=== PATIENT | male | born 1985 | race Caucasian/White ===

== ENCOUNTER 2017-06-04 14:45 | Emergency (ER) | payer OTHER ==
[~2017-06-04] VITALS: Ht 180.3 cm; Wt 108.9 kg
[~2017-06-04 14:45] MED LIST: NEURONTIN400 MG PO; PENTOXIFYLLINE400 MG PO
[2017-06-04] MEDS ORDERED: OMEPRAZOLE40 MG PO (14:56)
[2017-06-04] MEDS ORDERED: FLUOXETINE HCL20 MG PO (14:57)
== END 2017-06-04 14:59 | disposition home or self-care (01) ==
LOC: ED 14:45
DX: Z00.8 Encounter for other general examination (principal)

== ENCOUNTER 2017-07-07 20:39 | Emergency (ER) | payer OTHER ==
[~2017-07-07] VITALS: Ht 180.3 cm; Wt 108.9 kg
[~2017-07-07 20:39] MED LIST changes: +FLUOXETINE HCL20 MG PO; +OMEPRAZOLE40 MG PO
[2017-07-07] MEDS ORDERED: GABAPENTIN600 MG PO (21:15)
[2017-07-07] MEDS ORDERED: MOBIC7.5 MG PO ×2 (21:16)
[2017-07-07] MEDS ORDERED: CYCLOBENZAPRINE10 MG PO (21:54)
[2017-07-07] MEDS ORDERED: NAPROSYN500 MG PO (21:54)
== END 2017-07-07 22:04 | disposition home or self-care (01) ==
LOC: ED 20:39
DX: S23.3XXA Sprain of ligaments of thoracic spine, initial encounter (principal); F17.200 Nicotine dependence, unspecified, uncomplicated; Z88.2 Allergy status to sulfonamides; Z88.1 Allergy status to other antibiotic agents; Z88.8 Allergy status to other drugs, medicaments and biological substances; Z79.899 Other long term (current) drug therapy; X58.XXXA Exposure to other specified factors, initial encounter
CPT/HCPCS: 96372; 99283; J1885

== ENCOUNTER 2018-09-03 06:50 | Day surgery (SDC) | payer OTHER ==
[~2018-09-03] VITALS: Ht 180.3 cm; Wt 99.8 kg
[~2018-09-03 06:50] MED LIST changes: +ADDERALL 20 MG20 MG PO; +CYCLOBENZAPRINE10 MG PO; +GABAPENTIN600 MG PO; +MOBIC7.5 MG PO; +NAPROSYN500 MG PO; +PEPCID40 MG PO
--- NOTE | 2018-09-03 09:56 | NUR ---
09/03/18 0955 Evelyn Meeks 3749 PT ARRIVED TO PACU ON RA, PT DROWSY AND TALKING TO RN. PT REPORTS PAIN 5/10 AND TOLERABLE. 4 LAP SITES NOTED, ONE WITH SHADOWING. RESP EVEN AND UNLABORED.
--- NOTE | 2018-09-03 11:14 | NUR ---
LE 1100 PT ARRIVED FROM PACU, DROWSY. PAIN MEDICATION GIVEN BY INSPECTOR ELEVATORS FOR 710 PAIN. CRACKERS AND JELLO GIVEN. PT C/O NAUSEA WITH ATTEMPTING FOOD. ZOFRAN GIVEN. ASSISTED WITH HELPING PT CHANGE POSITION. LIGHTS OUT, PT RESTING. CALL LIGHT IN REACH.
--- NOTE | 2018-09-03 11:28 | NUR ---
PT FHERE FOR KAMILA SCHUMACHER. HE IS ALERT, ORIENTED AND SUPPORTED BY HIS G FRIEND DELPHINE. HE WAS SOMEWHAT ANXIOUS, BUT SEEMED PREPARED. PT DECLINED PRAYER, WILL FOLLOW NEEDED
--- NOTE | 2018-09-04 17:41 | OR ---
[facility] [address] [place], [place] [address] Signed DATE OF OPERATION: 09/03/2018 SURGEON: Mikey Bonner MD PREOPERATIVE DIAGNOSES: 1. Chronic cholecystitis. 2. Irregular gallbladder. POSTOPERATIVE DIAGNOSES: 1. Chronic cholecystitis. 2. Irregular gallbladder. PROCEDURE PERFORMED: Laparoscopic cholecystectomy with intraoperative cholangiogram. ESTIMATED BLOOD LOSS: 50 mL. FINDINGS: Pires gallbladder was chronically inflamed, extremely thin like wet tissue paper, very friable with omentum adhered to about half the gallbladder. I think it was irregular appearing on his ultrasound because it had no tension to the wall and it was very flaccid in the gallbladder fossa. The intraoperative cholangiogram did not show any obvious filling defects. The contrast hesitated as it went through the sphincter of oddi. With gentle pressure, it went through. INDICATIONS: Teo is a 33-year-old gentleman who has had trouble in the last couple years with right upper quadrant abdominal pain. He says it is belt like across his upper abdomen. It is worse after meals. He said within 15 to 20 minutes, he is miserable. He said it is now happening almost every day. It is worse with fatty foods. He went to a [employer] restaurant a few days before he saw me. He said that was really bad. He had been to his primary care provider. The ultrasound showed some irregularity of the gallbladder. The bile ducts were fine. No obvious gallstones. With his ongoing symptoms, he was asked to see me with respect to the above. I met with Teo and his girlfriend in the office. He clearly has gallbladder symptoms. I gave him a [employer] brochure on the gallbladder and we looked at that together along with the difference between laparoscopic and an open cholecystectomy. They understand there is risk to the procedure including, but not limited to bleeding, infection, scarring, change in contour of the skin, damage to bowel, damage to main bile duct, and incisional hernias. He had Electronically Signed By: MIKEY BONNER MD 09/04/18 1741 PATIENT NAME: TEO SALEEM JR OPERATIVE REPORT DATE OF : 83 REPORT #: [id number] PHYSICIAN: MIKEY BONNER MD PCP: CITLALI BISHOP MD REPORT IS CONFIDENTIAL AND NOT TO BE RELEASED WITHOUT AUTHORIZATION [facility] [address] [place] [id number] Signed expressed understanding and wished to proceed. PROCEDURE NOTE: I met with Teo and his family in the preop area. After this, he was taken into the operating room and placed in the supine position under general endotracheal tube anesthesia. He was given preoperative antibiotics along with subcutaneous heparin. SCDs were utilized. He was then prepped and draped in the usual sterile fashion. All trocars were placed in usual positions under direct visualization of camera without difficulty. We immediately noticed that his gallbladder was quite flaccid, which is unusual when someone has been n.p.o. overnight. We elevated the gallbladder and we found that the omentum was adherent to at least 1/2 the length of the gallbladder. We started our dissection bluntly and with judicious cautery, and we found that his gallbladder was quite friable and it came open quite easily. We spent a minute in dealing with a bleeder in the omentum and he has several sequential clips in that area. After this, we very carefully gave our countertraction and very slowly and bluntly brought the omentum down and off the gallbladder. The triangle of Calot was dissected bluntly with [place] dissectors. We then placed our intraoperative cholangiocatheter into the cystic duct. Intraoperative cholangiogram was then performed. We found it to be unremarkable. The cystic duct stump was secured with a PDS Endoloop. Two clips were placed across the cystic duct stump to arvind its location. After this, the gallbladder was very slowly and carefully with, gentle traction, removed from the gallbladder fossa with the help of the cautery. After this, the right upper quadrant was copiously irrigated and suctioned out until clear. We then used our laparoscopic suturing device to pass 0 Vicryl suture on either side of the fascia of the subxiphoid trocar site. This was tied down to close this fascia primarily. After this, all the gas was allowed to escape and all the trocars were removed along with the gallbladder. The gallbladder was opened on the back table by our circulating nurse. Again, they found this to be quite thin and very friable as well. No obvious gallstones noted. After this, I closed the fascia of the supraumbilical trocar site with [id number] and simple 0 Vicryl sutures. Local anesthetic was copiously injected into all trocar sites. Each trocar site was irrigated and suctioned out until clear. The skin and dermis of each trocar site were closed with interrupted 3-0 subcuticular Monocryl sutures. Dry gauze and tape were then applied to all incisions. After this, Teo was awakened from his anesthesia, extubated in the OR, and taken to recovery in stable condition. Mikey Bonner MD ALB/MODL Electronically Signed By: MIKEY BONNER MD 09/04/18 1741 PATIENT NAME: TEO SALEEM JR OPERATIVE REPORT DATE OF : 83 REPORT #: [id number] PHYSICIAN: MIKEY BONNER MD PCP: CITLALI BISHOP MD REPORT IS CONFIDENTIAL AND NOT TO BE RELEASED WITHOUT AUTHORIZATION [address] [place], [place] [address] Signed /[id number] cc: MD Mikey Chen MD Copies: CITLALI BISHOP MD, ANDREW L MD ~ Electronically Signed By: MIKEY BONNER MD 09/04/18 1741 PATIENT NAME: TEO SALEEM JR OPERATIVE REPORT DATE OF : 83 REPORT #: [id number] PHYSICIAN: MIKEY BONNER MD PCP: CITLALI BISHOP MD REPORT IS CONFIDENTIAL AND NOT TO BE RELEASED WITHOUT AUTHORIZATION
[2018-09-04] MEDS ORDERED: VICODIN HP 10-1 EAC1 PO (22:11)
== END 2018-09-03 13:00 | disposition home or self-care (01) ==
LOC: DS 06:50
PROVIDERS: Colon & Rectal Surgery
PROC: BF03YZZ Plain Radiography of Gallbladder and Bile Ducts using Other Contrast (ICD-10-PCS; 2018-09-03)
PROC: 0FT44ZZ Resection of Gallbladder, Percutaneous Endoscopic Approach (ICD-10-PCS; principal; 2018-09-03 08:15)
DX: K81.1 Chronic cholecystitis (principal); F90.9 Attention-deficit hyperactivity disorder, unspecified type; G62.9 Polyneuropathy, unspecified; G47.33 Obstructive sleep apnea (adult) (pediatric); F17.210 Nicotine dependence, cigarettes, uncomplicated; F17.220 Nicotine dependence, chewing tobacco, uncomplicated; Z88.1 Allergy status to other antibiotic agents; Z88.8 Allergy status to other drugs, medicaments and biological substances; Z79.899 Other long term (current) drug therapy
CPT/HCPCS: 00790; 74300; J0690; J1100; J1170; J1644; J1885; J2250; J2405; J2704; J3010; J7120; Q9967

== ENCOUNTER 2018-09-04 21:59 | Emergency (ER) | payer OTHER ==
[~2018-09-04] VITALS: Ht 180.3 cm; Wt 99.8 kg
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
--- OUTSIDE RECORDS SUMMARY | ~2018-09-04 | XMS | Clinical Summary ---
Demographics + + + | Address | [address] | | | [place] [address] | + + + | Home Phone | | + + + | Preferred Language | Unknown | + + + | Marital Status | Single | + + + | Temple Affiliation | 1013 | + + + | Race | Unknown | + + + | Ethnic Group | Unknown | + + + Author + + + | Author | [facility] | | | and [place] | + + + | Organization | [facility] | | | and [...] [place], [place] | | | | | [address] | | + + + + + Care Team Providers + +------+ + | Care Material Reclaimer Name | Role | Phone | + [...] | | + +--------+ +--------+ +---------+ | [employer] | SAIF | [id number] | Indjeffn | [phone] | | | | WC | | ity | [phone] | | + +--------+ +--------+ +---------+ | STATE [employer] | STATE | [id number] | Indemn | [phone] | | | | FARM | 7 [...] | + +--------+ +--------+ + + | [id number] | Worker | Self | [birth year] | Home: | [address] | | | s Comp | | 1984 | [phone]- | [place] [address] | | | | | | [phone] | | + +--------+ +--------+ + + | TEO SALEEM | Third | Self | [birth year] | Home: | [address] | | | Republican | | 1984 | [phone] | [place] [address] | | | Liabil | | | [phone] | | | | ity | | | | | + +--------+ +--------+ + + | TEO SALEEM | Person | Self | [birth year] | Home: | [address] | | | al/Fam | | 1984 | [phone] | [place] [address] | | | courtney | | | [phone] | | + +--------+ +--------+ + +
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
[2018-09-04] MEDS ORDERED: VICODIN HP 10-1 EAC1 PO (22:11)
== END 2018-09-05 00:58 | disposition home or self-care (01) ==
LOC: ED 21:59
PROC: 0CQ1XZZ Repair Lower Lip, External Approach (ICD-10-PCS; principal; 2018-09-04)
DX: S01.511A Laceration without foreign body of lip, initial encounter (principal); W01.198A Fall on same level from slipping, tripping and stumbling with subsequent striking against other object, initial encounter; F17.200 Nicotine dependence, unspecified, uncomplicated; Z88.8 Allergy status to other drugs, medicaments and biological substances; Z88.1 Allergy status to other antibiotic agents; Z88.2 Allergy status to sulfonamides; Z79.899 Other long term (current) drug therapy
CPT/HCPCS: 40650; 70450; 80053; 85025; 99284

== ENCOUNTER 2019-06-21 08:10 | Day surgery (SDC) | payer OTHER ==
[~2019-06-21] VITALS: Ht 177.8 cm; Wt 97.5 kg
[~2019-06-21 08:10] MED LIST changes: +ALEVE220 M1 PO; +VICODIN HP 10-1 EAC1 PO
--- NOTE | 2019-06-21 09:53 | NUR ---
06/21/19 0953 Lavern Woods 0989 PATIENT ARRIVES TO PACU UNRESPONSIVE TO PAIN, ORAL AIRWAY IN PLACE. RESP EVEN AND UNLABORED, MASK AT 6 LITERS.
--- NOTE | 2019-06-21 10:32 | NUR ---
PATIENT BACK IN DAY SURGERY ROOM. PATIENT FREQUENTLY DROWSY. UNABLE TO STAY AWAKE. BUT DOES AWAKEN TO VOICE. VS CHECKED. C/O PAIN 7/10 IN THROAT. IV SITE WNL. SCDs ON. ICE WATER PLACED AT BEDSIDE. GIRLFRIEND AT BESIDE. CALL LIGHT WITHIN REACH.
--- NOTE | 2019-06-21 12:32 | NUR ---
1225: PATIENT MORE ALERT AND AWAKE. STATES READY TO GO HOME. DISCHARGE INSTRUCTIONS GIVEN TO PATIENT AND GIRLFRIEND. PATIENT DRESSED WITH HELP FROM GIRLFRIEND. PATIENT DISCHARGED TO HOME WITH GIRLFRIEND VIA WHEELCHAIR.
--- NOTE | 2019-06-21 16:27 | OR ---
[facility] [place] [facility] [address] [facility] [place], [place] [address] Signed DATE OF OPERATION: 06/21/2019 SURGEON: Keegan Cameron MD PREOPERATIVE DIAGNOSIS: Left pharyngeal lesion. POSTOPERATIVE DIAGNOSIS: Left pharyngeal lesion. PROCEDURE: Direct laryngoscopy, excision of left pharyngeal lesion. ANESTHESIA: General orotracheal; BUSINESS SERVICES ASSISTANT, Jun. PREOPERATIVE HISTORY: Mr. Saleem is a 34-year-old man, who had a left pharyngeal lesion discovered on upper GI endoscopy by Dr. Easley recently. 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 He was taken to the operating room for the above-mentioned procedures. OPERATIVE PROCEDURE AND FINDINGS: After informed consent, the patient was taken to the operating room, placed in supine position where general orotracheal anesthesia was induced. The patient and procedure were verified. The patient was repositioned. The anterior commissure laryngoscope was used to visualize the hypopharynx, larynx. Everything was normal except for the left lateral pharyngeal wall near the posterior wall just inferior to the tonsil fossa. There was about a 1 cm papilloma attached on a stalk. This was excised completely and sent to pathology in formalin. Minimal bleeding stopped afterwards. No other abnormalities. The scope was removed. The patient was awakened, extubated, transported to recovery room in good condition. No complications. BLOOD LOSS: Minimal. SPECIMEN: To Pathology. DRAINS: Electronically Signed By: KEEGAN CAMERON MD 06/21/19 1627 PATIENT NAME: GIAN SALEEM JR OPERATIVE REPORT DATE OF : 83 REPORT #: [id number] PHYSICIAN: KEEGAN CAMERON MD PCP: CITLALI BISHOP MD REPORT IS CONFIDENTIAL AND NOT TO BE RELEASED WITHOUT AUTHORIZATION [address], [place] [address] Signed No drains. Keegan Cameron MD GC/PARMINDERL /[id number] Copies: ~ Electronically Signed By: KEEGAN CAMERON MD 06/21/19 1627 PATIENT NAME: GIAN SALEEM JR OPERATIVE REPORT DATE OF : 83 REPORT #: [id number] PHYSICIAN: KEEGAN CAMERON MD PCP: CITLALI BISHOP MD REPORT IS CONFIDENTIAL AND NOT TO BE RELEASED WITHOUT AUTHORIZATION
== END 2019-06-21 12:25 | disposition home or self-care (01) ==
LOC: DS 08:10 → OPS 08:10
PROVIDERS: Otolaryngology
PROC: 0CBM8ZZ Excision of Pharynx, Via Natural or Artificial Opening Endoscopic (ICD-10-PCS; principal; 2019-06-21 09:30)
DX: D10.9 Benign neoplasm of pharynx, unspecified (principal); F90.9 Attention-deficit hyperactivity disorder, unspecified type; K44.9 Diaphragmatic hernia without obstruction or gangrene; K21.9 Gastro-esophageal reflux disease without esophagitis; F17.210 Nicotine dependence, cigarettes, uncomplicated; F12.90 Cannabis use, unspecified, uncomplicated; Z88.1 Allergy status to other antibiotic agents; Z88.8 Allergy status to other drugs, medicaments and biological substances; Z79.899 Other long term (current) drug therapy
CPT/HCPCS: 00170; J0330; J0461; J1100; J1885; J2250; J2405; J2704; J2765; J3010; J7120

== ENCOUNTER 2019-06-24 08:19 | Emergency (ER) | payer OTHER ==
[~2019-06-24] VITALS: Ht 177.8 cm; Wt 97.5 kg
--- OUTSIDE RECORDS SUMMARY | 2019-06-24 08:22 | XMS ---
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 Dorcas has no Care Guidelines for this patient. Mac VISIT COUNT (12 MO.) 2 ОЛЕГ [place] TOTAL 2 NOTE: Visits indicate total known visits. ED/UCC VISIT TRACKING (12 MO.) 06/24/2019 08:19 [place] TYPE: Emergency COMPLAINT: - VOMITING BLOOD POST OP 09/04/2018 22:00 [facility]Г [facility] TYPE: Emergency COMPLAINT: - FALL- LIP LACERATION DIAGNOSES: - Nicotine dependence, unspecified, uncomplicated - Fall on same level from slipping, tripping and stumbling with subsequent striking against other object, initial encounter - Laceration without foreign body of lip, initial encounter - Allergy status to other drugs, medicaments and biological substances status - Syncope and collapse - Allergy status to sulfonamides status - Other chcf (current) drug therapy - Allergy status to other antibiotic agents status INPATIENT VISIT TRACKING (12 MO.) No inpatient visits to display in this time frame [email or web address]
[2019-06-24] MEDS ORDERED: NORCO 7.5-3251 EACH PO (10:56)
== END 2019-06-24 11:28 | disposition home or self-care (01) ==
LOC: ED 08:19
DX: J95.830 Postprocedural hemorrhage of a respiratory system organ or structure following a respiratory system procedure (principal); F17.200 Nicotine dependence, unspecified, uncomplicated; Z88.2 Allergy status to sulfonamides; Z88.8 Allergy status to other drugs, medicaments and biological substances; Z88.1 Allergy status to other antibiotic agents; Z79.899 Other long term (current) drug therapy
CPT/HCPCS: 85025; 96361; 96374; 96375; 99283-25; 99406; J2405; J3010; J7040

== ENCOUNTER 2020-07-24 15:29 | Emergency (ER) | payer OTHER ==
[~2020-07-24] VITALS: Ht 177.8 cm; Wt 97.5 kg
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
--- OUTSIDE RECORDS SUMMARY | ~2020-07-24 | XMS | Encounter Summary ---
Demographics + + + | Address | [address] | | | [place] [address] | + + + | Home Phone | | + + + | Preferred Language | Unknown | + + + | Marital Status | Single | + + + | Mosque Affiliation | Unknown | + + + | Race | White | + + + | Ethnic Group | Not or | + + + Author + + + | Author | [facility] | + + + | Organization | [facility] | + + + | Address | Unknown | + + + | Phone | Unavailable | + + + Support + + +---------+ + | Name | Relationship | Address | Phone | + + +---------+ + | Ole Vargas Sr. | ECON | Unknown | | + + +---------+ + Care Team Providers + +------+ + | Care Mobility Architect Manager Name | Role | Phone | + +------+ + | No Pcp Per Patient | PCP | Unavailable | + +------+ + Reason for Referral Diagnostic Testing (Routine) +--------+--------+ + + + + | Status | Reason | Specialty | Diagnoses / | Referred By | Referred To | | | | | Procedures | Contact | Contact | +--------+--------+ + + + + | Closed | | Radiology | Diagnoses | Dwain, | Rad Ct Scan | | | | | | MD Reji | [address] | | | | | Diaphragmati | [address] | | | | | c hernia | [facility] | [place] for | | | | | without | Rd | Health and | | | | | obstruction | [place], [place] | Healing, | | | | | and without | [address] | Building 1, | | | | | gangrene | Phone: | 3rd Floor | | | | | Procedures | [phone] | [place], [place] | | | | | CT CHEST, | Fax: | [address] | | | | | ABDOMEN AND | [phone] | Phone: | | | | | PELVIS W IV | | [phone] | | | | | CONTRAST NM | | Fax: | | | | | CAT SCAN OF | | [phone] | | | | | CHEST | | | | | | | CONTRAST NM | | | | | | | CT | | | | | | | ABDOMEN&PELV | | | | | | | IS | | | | | | | W/CONTRAST | | | +--------+--------+ + + + + Reason for Visit Diagnostic Testing (Routine) +--------+--------+ + + + + | Status | Reason | Specialty | Diagnoses / | Referred By | Referred To | | | | | Procedures | Contact | Contact | +--------+--------+ + + + + | Closed | | Radiology | Diagnoses | Dwain, | Rad Ct Scan | | | | | | MD Reji | [address] | | | | | Diaphragmati | [address] | | | | | c hernia | [facility] | [place] [facility] | | | | | without | Rd | Health and | | | | | obstruction | [place], [place] | Healing, | | | | | and without | [address] | [address] 1, | | | | | gangrene | Phone: | 3rd Floor | | | | | Procedures | [phone] | [place], [place] | | | | | CT CHEST, | Fax: | [address] | | | | | ABDOMEN AND | [phone] | Phone: | | | | | PELVIS W IV | | [phone] | | | | | CONTRAST NM | | Fax: | | | | | CAT SCAN OF | | [phone] | | | | | CHEST | | | | | | | CONTRAST NM | | | | | | | CT | | | | | | | ABDOMEN&PELV | | | | | | | IS | | | | | | | W/CONTRAST | | | +--------+--------+ + + + + Encounter Details +--------+ + + + + | Date | Type | Department | Care Team | Description | +--------+ + + + + | 07/22/ | Hospital | Radiology/Imaging | Reji Prakash MD | | | 2019 | Encounter | Lab at [facility] [address] | [address] | | | | | [facility] | [facility] [place], | | | | | Health and Healing, | [place] [address] | | | | | Building 1, [facility] | [phone] | | | | | Floor [place], [place] | | | | | | [address] | | | | | | [phone] | | | +--------+ + + + + Social History + + + +--------+------+ | Tobacco Use | Types | Packs/Day | Years | Date | | | | | Used | | + + + +--------+------+ | Current Every Day | Cigarettes | 1 | | | | Smoker | | | | | + + + +--------+------+ + +------+---+---+ | Smokeless Tobacco: | Chew | | | | Current User | | | | + +------+---+---+ + + +---------+ + | Alcohol Use | Drinks/Week | oz/Week | Comments | + + +---------+ + | No | | | | + + +---------+ + + + + | Sex Assigned at | Date Recorded | | | | + + + | Not on file | | + + + documented as of this encounter Medications at Time of Discharge + + + +---------+ + + | Medication | Sig | Dispensed | Refills | Start | End Date | | | | | | Date | | + + + +---------+ + + | | take 1 tablet by | | 0 | 07/20/20 | | | dextroamphetamine-am | mouth twice a day | | | 19 | | | phetamine 5 mg oral | | | | | | | tablet | | | | | | + + + +---------+ + + | gabapentin 100 mg | take 1 capsule by | | 0 | 06/29/20 | | | oral capsule | mouth at bedtime and | | | 19 | | | | INCREASE BY 1 | | | | | | | capsule ever... | | | | | | | (REFER TO | | | | | | | PRESCRIPTION NOTES). | | | | | + + + +---------+ + + documented as of this encounter Plan of Treatment Not on filedocumented as of this encounter Procedures + +--------+ + + + | Procedure Name | Priori | Date/Time | Associated Diagnosis | Comments | | | ty | | | | + +--------+ + + + | CT CHEST, ABDOMEN | Routin | 07/22/2019 | Diaphragmatic | Results for this | | AND PELVIS W IV | e | 1:47 PM | hernia without | procedure are in the | | CONTRAST | | PDT | obstruction and | results section. | | | | | without gangrene | | + +--------+ + + + documented in this encounter Results CT CHEST, ABDOMEN AND PELVIS W IV CONTRAST (07/22/2019 1:47 PM PDT) + + | Specimen | + + | | + + + + + | Narrative | Performed At | + + + | EXAM: CT of the chest, abdomen and pelvis WITH intravenous contrast. | [facility] | | HISTORY: small hiatal hernia, posterior oropharynx polypoid | RADIOLOGY VOICE | | lesion, GERD seen on recent EGD COMPARISON: None available. | RECOGNITION 2 | | TECHNIQUE: CT of the chest, abdomen and pelvis WITH intravenous | | | contrast. Coronal and sagittal reformats were generated and reviewed. | | | FINDINGS: CHEST: The heart and great vessels are unremarkable. | | | No thoracic adenopathy. The lungs are clear. No pleural fluid. | | | LIVER: Unremarkable. BILIARY: Surgically absent with cholecystectomy | | | in place without any evidence of intrahepatic or extrahepatic biliary | | | ductal dilation. PANCREAS: Unremarkable. SPLEEN: Unremarkable. | | | ADRENALS: Unremarkable. KIDNEYS/URETERS: Unremarkable. PELVIC | | | ORGANS/BLADDER: Well-defined soft tissue sessile enhancing lesion | | | within the left posterior bladder measuring 2.7 x 2.9 cm (axial, image | | | 235). GI TRACT: No evidence of hiatal hernia on this exam. | | | Appendix surgically absent. Bowel normal in caliber with no evidence | | | of obstruction or abnormal dilation. PERITONEUM: No free air or | | | fluid. LYMPH NODES: Borderline prominent left inguinal nodes. | | | VESSELS: Unremarkable. BONES AND SOFT TISSUES: Unremarkable. | | | IMPRESSION: 1. Large well-defined sessile mass within the bladder | | | with borderline enlargement of left inguinal nodes concerning for | | | bladder carcinoma. Urology consult and cystoscopy recommended. I | | | have personally reviewed the images and, if necessary, edited the | | | report. I agree with the report as now presented. Final | | | signature: Shirley Lewis MD 07/22/2019 5:56 PM Preliminary: | | | Perla Keenan MD 07/22/2019 3:49 PM Dictation initiated: Perla | | | MD Ree 07/22/2019 1:59 PM | | + + + + + | Procedure Note | + + | Service Account, Radiant Res In Interface - 07/22/2019 5:57 PM PDT EXAM: CT of the | | chest, abdomen and pelvis WITH intravenous contrast. HISTORY: small hiatal hernia, | | posterior oropharynx polypoid lesion, GERD seen on recent EGD COMPARISON: None | | available. TECHNIQUE: CT of the chest, abdomen and pelvis WITH intravenous contrast. | | Coronal and sagittal reformats were generated and reviewed. FINDINGS: CHEST: The heart | | and great vessels are unremarkable. No thoracic adenopathy. The lungs are clear. No | | pleural fluid. LIVER: Unremarkable.BILIARY: Surgically absent with cholecystectomy in | | place without any evidence of intrahepatic or extrahepatic biliary ductal | | dilation.PANCREAS: Unremarkable. SPLEEN: Unremarkable.ADRENALS: | | Unremarkable.KIDNEYS/URETERS: Unremarkable.PELVIC ORGANS/BLADDER: Well-defined soft | | tissue sessile enhancing lesion within the left posterior bladder measuring 2.7 x 2.9 cm | | (axial, image 235). GI TRACT: No evidence of hiatal hernia on this exam. Appendix | | surgically absent. Bowel normal in caliber with no evidence of obstruction or abnormal | | dilation.PERITONEUM: No free air or fluid. LYMPH NODES: Borderline prominent left | | inguinal nodes.VESSELS: Unremarkable. BONES AND SOFT TISSUES: Unremarkable. IMPRESSION: | | 1. Large well-defined sessile mass within the bladder with borderline enlargement of | | left inguinal nodes concerning for bladder carcinoma. Urology consult and cystoscopy | | recommended. I have personally reviewed the images and, if necessary, edited the report. | | I agree with the report as now presented. Final signature: Shirley Lewis MD | | 07/22/2019 5:56 PM Preliminary: Perla Keenan MD 07/22/2019 3:49 PM Dictation | | initiated: Perla Keenan MD 07/22/2019 1:59 PM | |GI TRACT: No evidence of hiatal hernia on this exam. Appendix surgically absent. Bowel norm al in caliber with no evidence of obstruction or abnormal dilation. | |PERITONEUM: No free air or fluid. | | | |LYMPH NODES: Borderline prominent left inguinal nodes. | |VESSELS: Unremarkable. | | | |BONES AND SOFT TISSUES: Unremarkable. | | | |IMPRESSION: | | | |1. Large well-defined sessile mass within the bladder with borderline enlargement of left i nguinal nodes concerning for bladder carcinoma. Urology consult and cystoscopy recommended. | | | |I have personally reviewed the images and, if necessary, edited the report. I agree with th e report as now presented. | | | |Final signature: Shirley Lewis MD 07/22/2019 5:56 PM | |Preliminary: Perla Keenan MD 07/22/2019 3:49 PM | |Dictation initiated: Perla Keenan MD 07/22/2019 1:59 PM | + + + +---------+ + + | Performing | Address | City/State/Zipcode | Phone Number | | Organization | | | | + +---------+ + + | [facility] | | | | | VOICE RECOGNITION 2 | | | | + +---------+ + + documented in this encounter Visit Diagnoses + + | Diagnosis | + + | Diaphragmatic hernia without obstruction and without gangrene | + + documented in this encounter Administered Medications + +---------+ +--------+------+------+ | Medication Order | MAR | Action | Dose | Rate | Site | | | Action | Date | | | | + +---------+ +--------+------+------+ | iohexol (OMNIPAQUE) 350 mg | IV Push | 07/22/20 | 100 mL | | | | iodine/mL injection 100 mL 100 | | 19 1:48 | | | | | mL, intravenous, ONCE, 1 dose, | | PM PDT | | | | | 07/22/19 at 1430 | | | | | | + +---------+ +--------+------+------+ +---+---+ | | | +---+---+ documented in this encounter"
--- OUTSIDE RECORDS SUMMARY | ~2020-07-24 | XMS | Encounter Summary ---
Demographics + + + | Address | [address] | | | [place] [address] | + + + | Home Phone | | + + + | Preferred Language | Unknown | + + + | Marital Status | Single | + + + | Catholic Affiliation | 1013 | + + + | Race | White | + + + | Ethnic Group | Not or | + + + Author + + + | Author | [facility] | | | and [place] | + + + | Organization | [facility] | | | and [place] | + + + | Address | Unknown | + + + | Phone | Unavailable | + + + Support + + + + + | Name | Relationship | Address | Phone | + + + + + | Teo Vargas | ECON | [address] | | | | | [place] | | | | | [address] | | + + + + + Care Team Providers + +------+ + | Care Parachute/Combatant Diver Officer Name | Role | Phone | + +------+ + | No, Physician | PCP | Unavailable | + +------+ + Reason for Visit + + + | Reason | Comments | + + + | Discharge Without | | | Visit | | + + + Encounter Details +--------+ + + + + | Date | Type | Department | Care Team | Description | +--------+ + + + + | 12/28/ | Documentati | [facility] | Rocco Jasso, | Discharge Without | | 2018 | on | [facility] | PT [address] | Visit | | | | OP [address] | [place] | | | | | [place] | [address] | | | | | [address] | | | | | | [phone] | | | +--------+ + + + + Social History + +-------+ [...] as of this encounter Plan of Treatment +--------+---------+ + + + | Date | Type | Specialty | Care Team | Description | +--------+---------+ + + + | 08/16/ | Office | Urology | Abhijit Horowitz | | | 2020 | Visit | | [address] | | | | | | [place] | | | | | | [place] [address] | | | | | | [phone] | | | | | | | | +--------+---------+ + + + documented as of this encounter Visit Diagnoses + + | Diagnosis | + + | Knee strain, right, initial encounter | + + documented in this encounter"
--- OUTSIDE RECORDS SUMMARY | ~2020-07-24 | XMS | Encounter Summary ---
Demographics + + + | Address | [address] | | | [place] [address] | + + + | Home Phone | | + + + | Preferred Language | Unknown | + + + | Marital Status | Single | + + + | Jain Affiliation | 1013 | + + + | Race | White | + + + | Ethnic Group | Not or | + + + Author + + + | Author | [facility] | | | and [place] | + + + | Organization | [facility] | | | and [...] [place] | | | | | [address] | | + + + + + Care Team Providers + +------+ + | Care Varnisher Plasticoater Name | Role | Phone | + +------+ + | No, Physician | PCP | Unavailable | + +------+ + Reason for Visit + + + | Reason | Comments | + + + | Neck Injury | | + + + | Shoulder Injury | | + + + Encounter Details +--------+---------+ + + + | Date | Type | Department | Care Team | Description | +--------+---------+ + + + | 02/18/ | Office | [facility] | Iwona Keyes | Place of occurrence, | | 2018 | Visit | [facility] | [address] | industrial places | | | | [address] [place] | and premises | | | | [address] [place] | [place] [address] | (Primary Dx); Strain | | | | [place], [place] | [phone] | of neck muscle, | | | | [address] | | subsequent encounter | | | | [phone] | | | +--------+---------+ + + + Social History [...] + + + | Blood Pressure | 120/73 | 02/18/2018 1:17 PM | | | | | PDT | | + + + + + | Pulse | 82 | 02/18/2018 1:17 PM | | | | | PDT | | + + + + + | Temperature | 36.2 C (97.1 F) | 02/18/2018 1:17 PM | | | | | PDT | | + + + + + | Respiratory Rate | - | - | | + + + + + | Oxygen Saturation | - | - | | + + + + + | Inhaled Oxygen | - | - | | | Concentration | | | | + + + + + | Weight | 107 kg (236 lb) | 02/18/2018 1:17 PM | | | | | PDT | | + + + + + | Height | 177.8 cm (5' 10") | 02/18/2018 1:17 PM | | | | | PDT | | + + + + + | Body Mass Index | 33.86 | 02/18/2018 1:17 PM | | | | | PDT | | + + + + + documented in this encounter Progress Notes Iwona Key[place] MD - 02/18/2018 1:30 PM PDTEmployer: Alicia [employer] Guarantor: [employer] Date of injury: 06/18/17 Claim number: [id number] Chief complaint: Follow-up neck injury Subjective: Injured workers a 32-year-old male who presents today for scheduled visit. At his last kendall luation we performed a closing evaluation and examination for the except conditions for this industrial injury. He has continued the right shoulder injury and asked that this be inclu ded with this claim. He states he was told by claims management to ask that this be include d, he has done this, approximate 2 weeks ago submitted a request to have the right shoulder injury included with the claim but has not yet heard from claims management regarding a deci philip and presents today to discuss this. Past medical history, medications, allergies reviewed Review of systems: As per HPI Objective: Vital signs as noted, nursing notes reviewed. Xibbzmq-jsmm-tlojbfpjd, well-nourished, in no apparent distress, pleasant cooperative. Imaging/diagnostics: None indicated this visit Pending interventions: Continue conservative management. Assessment: 1. Cervical strain-medically stationary 2. Thoracic strain-medically stationary Plan: Discuss with injured worker, that from a standpoint of the accepted conditions, he is medic ally stationary and no further curative medical treatments are indicated. In regard to the shoulder injury, I did indicate that because of the delays in the amount of time of presenta tion from the date of injury, that I did not believe it was a consequence of the industrial injury, however this final determination is not up to me and will be ultimately made by anai [place] management and his Worker's Compensation insurer her. Once he receives notification that it being accepted, he will return to proceed with treatment recommendations. If this condi tion is denied, he may pursue treatment via his private insurance and follow-up here will be on an as-needed basis. He voices understanding and agreement. Injured worker is medically stationary. No further curative medical treatments are indicat ed. No need for work accommodations or vocational services. No permanent impairment as a c onsequence of this injury. This note was dictated using [employer] voice recognition software. Occasional wrong- word or sound-alike substitutions may have occurred due to the inherent limitations of voice recogni tion software. Please read the chart carefully and recognize, using context, where these smith bstitutions have occurred. documented in th is encounter Plan of Treatment +--------+---------+ + + + | Date | Type | Specialty | Care Team | Description | +--------+---------+ + + + | 08/16/ | Office | Urology | Abhijit Horowitz | | | 2020 | Visit | | [address] | | | | | | [address] | | | | | | [place] [address] | | | | | | [phone] | | | | | | | | +--------+---------+ + + + documented as of this encounter Visit Diagnoses + + | Diagnosis | + + | Place of occurrence, industrial places and premises - Primary | + + | Strain of neck muscle, subsequent encounter | + + documented in this encounter
--- OUTSIDE RECORDS SUMMARY | ~2020-07-24 | XMS | Encounter Summary ---
Demographics + + + | Address | [address] | | | [place] [address] | + + + | Home Phone | | + + + | Preferred Language | Unknown | + + + | Marital Status | Single | + + + | Scientology Affiliation | Unknown | + + + | Race | White | + + + | Ethnic Group | Not or | + + + Author + + + | Author | [facility] | + + + | Organization | [facility] | + + + | Address | Unknown | + + + | Phone | Unavailable | + + + Support + + +---------+ + | Name | Relationship | Address | Phone | + + +---------+ + | Ole Vargas Sr. | ECON | Unknown | | + + +---------+ + Care Team Providers + +------+ + | Care Cut And Print Machine Operator Name | Role | Phone | + +------+ + | Yared Bryant MD | PCP | | + +------+ + Encounter Details +--------+ + + + + | Date | Type | Department | Care Team | Description | +--------+ + + + + | 06/08/ | Procedure | Radiology/Imaging | | | | 2019 | Pass | Lab at [facility] [address] | | | | | | [address] [facility] | | | | | | Health and Healing, | | | | | | [address] | | | | | | [place], [place] | | | | | | [address] | | | | | | [phone] | | | +--------+ + + + [...] Not on filedocumented as of this encounter Visit Diagnoses Not on filedocumented in this encounter"
--- OUTSIDE RECORDS SUMMARY | ~2020-07-24 | XMS | Encounter Summary ---
Demographics + + + | Address | [address] | | | [place] [address] | + + + | Home Phone | | + + + | Preferred Language | Unknown | + + + | Marital Status | Single | + + + | Restorationism Affiliation | 1013 | + + + | Race | White | + + + | Ethnic Group | Not or | + + + Author + + + | Author | [facility] | | | and [place] | + + + | Organization | [facility] | | | and [place] | + + + | Address | Unknown | + + + | Phone | Unavailable | + + + Support + + + + + | Name | Relationship | Address | Phone | + + + + + | Teo Poees | ECON | [address] | | | | | [facility] | | | | | [address] | | + + + + + Care Team Providers + +------+ + | Care Nutrition Specialist Name | Role | Phone | + +------+ + | No, Physician | PCP | Unavailable | + +------+ + Reason for Referral Evaluate & Treat (Routine) +--------+ + + + + + | Status | Reason | Specialty | Diagnoses / | Referred By | Referred To | | | | | Procedures | Contact | Contact | +--------+ + + + + + | Closed | Specialty | Physical | Diagnoses | [place], | Tyrell, | | | Services | Therapy | Strain of | [place] | Ronaldo Reddy PT | | | Required | | neck muscle, | MD Miranda | [address] | | | | | subsequent | [address] [facility] | | | | | encounter | [address] | [place] | | | | | Place of | [place], | [place], [place] | | | | | occurrence, | [place] [address] | [address] Phone: | | | | | industrial | Phone: | [phone] | | | | | places and | [phone] | Fax: | | | | | premises | Fax: | [phone] | | | | | | [phone] | | +--------+ + + + + + + + | Scheduling Instructions | + + | [id number] | + + Encounter Details +--------+ + + + + | Date | Type | Department | Care Team | Description | +--------+ + + + + | 12/18/ | Orders Only | [facility] | [place] | Strain of neck | | 2018 | | [facility] | MD [address] | muscle, subsequent | | | | [facility] [address] [place] | encounter (Primary | | | | [address] [place] | [place] [address] | Dx); Place of | | | | [facility], [place] | [phone] | occurrence, | | | | [address] | | industrial places | | | | [phone] | | and premises | +--------+ + + + + Social [...] | | | | | [place] [address] | | | | | | [phone] | | | | | | | | +--------+---------+ + + + + + +--------+ + + | Name | Type | Priori | Associated Diagnoses | Order Schedule | | | | ty | | | + + +--------+ + + | Ambulatory referral | Outpatient | Routin | Strain of neck | Ordered: 12/18/2017 | | to Physical Therapy | Referral | e | muscle, subsequent | | | | | | encounter Place of | | | | | | occurrence, | | | | | | industrial places | | | | | | and premises | | + + +--------+ + + documented as of this encounter Visit Diagnoses + + | Diagnosis | + + | Strain of neck muscle, subsequent encounter - Primary | + + | Place of occurrence, industrial places and premises | + + documented in this encounter"
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
--- OUTSIDE RECORDS SUMMARY | ~2020-07-24 | XMS | Encounter Summary ---
Demographics + + + | Address | [address] | | | [place] [address] | + + + | Home Phone | | + + + | Preferred Language | Unknown | + + + | Marital Status | Single | + + + | [employer] Affiliation | 1013 | + + + | Race | White | + + + | Ethnic Group | Not or | + + + Author + + + | Author | [facility] | | | and [place] | + + + | Organization | [facility] | | | and [place] | + + + | Address | Unknown | + + + | Phone | Unavailable | + + + Support + + + + + | Name | Relationship | Address | Phone | + + + + + | Teo Vargas | ECON | [address] | | | | | [place] | | | | | [address] | | + + + + + Care Team Providers + +------+ + | Care Customer Account Representative Name | Role | Phone | + +------+ + | Yared Bryant MD | PCP | | + +------+ + Reason for Visit Auth/Cert +--------+--------+ + + + + | Status | Reason | Specialty | Diagnoses / | Referred By | Referred To | | | | | Procedures | Contact | Contact | +--------+--------+ + + + + | | | | Diagnoses | | Spendlove, | | | | | Neoplasm of | | Yaakov Whitley, | | | | | uncertain | | MD [address] | | | | | behavior of | | [address] | | | | | bladder | | [place], | | | | | [address] | | [place] [address] | | | | | (ICD-10-CM) | | Phone: | | | | | - [phone] | | | | | | | (ICD-9-CM) - | | Fax: | | | | | Bladder | | | | | | | neoplasm | | | | | | | Procedures | | | | | | | [place] | | | | | | | CYSTOURETHRO | | | | | | | JAKI GOMEZ | | | | | | | <.5CM LESN | | | | | | | CYSTOSCOPY | | | | | | | TRANS | | | | | | | URETHRAL | | | | | | | RESECTION | | | | | | | BLADDER | | | | | | | TUMOR | | | +--------+--------+ + + + + Encounter Details +--------+---------+ + + + | Date | Type | Department | Care Team | Description | +--------+---------+ + + + | 10/05/ | [facility] | [facility] | Yaakov Otto | CYSTOSCOPY; TRANS | | 2019 | | [facility] | MD Angi [address] | URETHRAL RESECTION | | | | [address] | [address] | BLADDER TUMOR | | | | [place], [place] | [place], [place] | | | | | [address] | [phone] | | | | | [phone] | | | | | | | (Fax) | | +--------+---------+ + + + Social History + + [...] Comments | + + +---------+ + | Yes | | | rarely | + + +---------+ + + + [...] + + + | Blood Pressure | 117/72 | 10/05/2019 7:57 AM | | | | | PST | | + + + + + | Pulse | 73 | 10/05/2019 7:57 AM | | | | | PST | | + + + + + | Temperature | 36.2 C (97.2 F) | 10/05/2019 7:57 AM | | | | | PST | | + + + + + | Respiratory Rate | 18 | 10/05/2019 7:57 AM | | | | | PST | | + + + + + | Oxygen Saturation | 98% | 10/05/2019 7:57 AM | | | | | PST | | + + + + + | Inhaled Oxygen | - | - | | | Concentration | | | | + + + + + | Weight | 97.6 kg (215 lb 2.7 | 10/05/2019 7:57 AM | | | | oz) | PST | | + + + + + | Height | 180.3 cm (5' 11") | 10/05/2019 7:57 AM | | | | | PST | | + + + + + | Body Mass Index | 30.01 | 10/05/2019 7:57 AM | | | | | PST | | + + + + + documented in this encounter Discharge Instructions Instructions Rosaline Alvarado RN - 10/05/2019 Treating Bladder Cancer: Transurethral Resection (TUR) Cystoscopy is a way for your healthcare provider to look into your bladder. A small telesco pe with a camera attached is passed through the urethra and into the bladder. This tube is c alled a cystoscope. Problems of the urinary tract can be diagnosed and sometimes treated wit h cystoscopy. If cancer is found and it is in an early stage (superficial) and is growing sl owly (low grade), it may be removed during this procedure. Removal of a tumor during cystosc opy is known as transurethral resection (TUR) or transurethral bladder resection (TURBT). Mo st of the time, tissue removed during TUR can be studied to see what it is and if more treat ment is needed. Removing a tumor TUR is most often done in a hospital as an outpatient procedure. If the tumor is large, you may stay overnight. You will be given medicine so you don t feel pain during the procedur e. This is called anesthesia. If you have regional anesthesia, just the lower part of your b jimmie is numbed. You may also be drowsy. If you have general anesthesia, you will be in a stat e like deep sleep throughout the procedure. During the procedure A cystoscope is passed through your urethra and into your bladder. The bladder is examined through the scope. If tumors are found, they are removed if possible. A cutting tool is put through the scope to do this. A biopsy (sample) of cells from the tumor and normal-looking t issue may be taken. These samples are looked at under a microscope. This is done to look for cancer and, if it's found, to see how deeply it has grown into the bladder wall. In some ca ses, a laser is then used to burn any remaining tumor away. After the procedure Here is what to expect after TUR: After the procedure, a catheter (thin, flexible tube) may be placed in your bladder. Thi s drains the bladder of urine while you heal. The tube may stay in place for a few days. Bladder tumors can come back (recur) after treatment. To be sure that all cancer cells a re destroyed, TUR may be followed by other types of treatment, such as intravesical therapy. This uses special medicines placed in the bladder to destroy cancer cells. Risks and possible complications of TUR All procedures have risks. Risks of TUR include: Blood or even blood clots in the urine Pain when passing urine Urinary frequency (having to go more often than usual) Make sure you know what to watch for and when to call your healthcare provider. Know how to reach your healthcare provider after office hours and on weekends. Date Last Reviewed: 01/18/201619994291-[address] [place] [address], [place] [address]. All righ ts reserved. This information is not intended as a substitute for professional medical care. Always follow your healthcare professional's instructions. Follow-up in 3 months for surveillance cystoscopy documented in this encounter Medications at Time of Discharge + + + +---------+ + + | Medication | Sig | Dispensed | Refills | Start | End Date | | | | | | Date | | + + + +---------+ + + | | Take 5 mg by mouth 2 | | 0 | | | | amphetamine-dextroam | times daily. | | | | | | phetamine (ADDERALL) | | | | | | | 5 mg tablet | | | | | | + + + +---------+ + + | | Take 1-2 tablets by | 30 | 0 | 10/05/20 | | | HYDROcodone-acetamin | mouth every 4 hours | tablet | | 19 | | | ophen (NORCO) 5-325 | as needed. | | | | | | mg per tablet | | | | | | + + + +---------+ + + | varenicline | Take 1 mg by mouth 2 | | 0 | | | | (CHANTIX) 1 MG | times daily. | | | | | | tablet | | | | | | + + + +---------+ + + | nitrofurantoin | Take 1 capsule by | 3 | 0 | 10/05/20 | | | (MACROBID) 100 mg | mouth nightly for 30 | capsule | | 19 | 0 | | capsuleIndications: | days. Indications: | | | | | | Uncomplicated | Simple Infection of | | | | | | Urinary Tract | the Urinary Tract | | | | | | Infection | | | | | | + + + +---------+ + + | oxybutynin | Take 1 tablet by | 30 | 3 | 09/22/20 | | | (DITROPAN-XL) 10 MG | mouth Daily. | tablet | | 19 | 0 | | 24 hr tablet | | | | | | + + + +---------+ + + documented as of this encounter H&P Notes Yaakov Otto MD - 10/05/2019 8:58 AM PSTSURGICAL INTERIM HISTORY & PHYSICAL UPD ATE Pt. Name/Age/: Teo Vargas 34 y.o. 1985 Date of admission: 10/05/2019 The current H&P was reviewed. The patient was reexamined. Re-evaluation of the patient co nfirms the necessity for the scheduled procedure. No change has occurred in the patient s condition since the H&P was completed less than 30 days ago. VERIFICATION OF CONSENT (PARQ) The patient was counseled regarding the procedure, its indications, risks, potential compli cations and alternatives. Any questions were answered. Consent was obtained. Electronically signed by: Yaakov Otto MD, 10/05/2019 8:58 AM [facility] roldan MD - 09/22/2019 4:00 PM PSTFormatting of this note might be different from the or iginal. Chief Complaint Patient presents with New Patient bladder neoplasm HPI Teo Vargas is a 34 y.o. male patient of Yared Bryant MD here today for a evalua tion for bladder neoplasm. Has had long history of heartburn and during the evaluation had a CT scan which showed a la rge bladder mass. Underwent evaluation/cysto at [facility] and found to have a papillary mass in the bladder Today LUTS: frequency, urgency, occasional dysuria, nocturia 3-4 per night Episodes of gross hematuria, Occasional episodes of urge incontinence Smoking history, 20+ years Also complains of abdominal pain, right sided pelvic pain, testicular pain. Pain is const ant, movement makes the pain worse Assessment Teo was seen today for new patient. Diagnoses and all orders for this visit: Bladder neoplasm - POCT Urinalysis - Case Request - OR/ENDO/ASC/OB: CYSTOSCOPY TRANS URETHRAL RESECTION BLADDER TUMOR OAB (overactive bladder) Lower urinary tract symptoms (LUTS) Other orders - oxybutynin (DITROPAN-XL) 10 MG 24 hr tablet; Take 1 tablet by mouth Daily. Plan We will schedule patient for transurethral resection of bladder tumor. We discussed risks including pain, bleeding, infection, bladder perforation, clot retention, obstruction of ure ter and need for further procedures. For the patient's worsening lower urinary tract symptoms we will start with oxybutynin. We discussed risks of dry mouth, constipation, blurry vision. Past Medical History Past Medical History: Diagnosis Date Hiatal hernia Personality change Scapula fracture 04/2012 Past Surgical History Past Surgical History: Procedure Laterality Date APPENDECTOMY 2012 EGD GALLBLADDER SURGERY 2018 HEMORRHOID SURGERY 2015 KNEESCOPY ORTHOPEDIC SURGERY right knee scope in ~ '97 POLYPECTOMY 2019 SKIN GRAPH 2013 Family History: Family History Problem Relation Age of Onset COPD Mother Prostate cancer Neg Hx Social History: Social History Socioeconomic History Marital status: Single Spouse name: Not on file Number of children: Not on file Years of education: Not on file Highest education level: Not on file Tobacco Use Smoking status: Current Every Day Smoker Types: Cigarettes Smokeless tobacco: Current User Types: Chew Substance and Sexual Activity Drug use: Yes Types: Marijuana Allergies Allergen Reactions Septra [Sulfamethoxazole-Trimethoprim] Nausea And Vomiting Tramadol Nausea And Vomiting Vistaril [Hydroxyzine Hcl] Itching Medications: Current Outpatient Medications: amphetamine-dextroamphetamine (ADDERALL) 5 mg tablet, Take 5 mg by mouth 2 times daily ., Disp: , Rfl: gabapentin (NEURONTIN) 100 mg capsule, Take 100 mg by mouth nightly. Escalating dose u nder [facility] provider. Last dose 09/20/19- holding it as he's not feeling well., Disp: , Rfl: 0 oxybutynin (DITROPAN-XL) 10 MG 24 hr tablet, Take 1 tablet by mouth Daily., Disp: 30 t ablet, Rfl: 3 varenicline (CHANTIX) 1 MG tablet, Take 1 mg by mouth 2 times daily., Disp: , Rfl: ROS Objective BP 118/68 | Pulse 82 | Resp 18 | Ht 1.778 m (5' 10") | Wt 96.9 kg (213 lb 10 oz) | BMI 30.65 kg/m General Appearance: Alert, cooperative, no distress, appears stated age Head: Normocephalic, without obvious abnormality, atraumatic Eyes: conjunctiva/corneas clear, EOM's intact Throat: Lips, mucosa, and tongue normal; no gross deformities, mmm Neck: Supple, symmetrical, no adenopathy Lungs: Regular, unlabored breathing MS No CVA tenderness, no spinal tenderness, no scoliosis present Abdomen: Soft, difussely tender in lower quadrants R>>L, no rebound or guarding Extremities: Extremities normal, atraumatic, no cyanosis, clubbing, or edema Pulses: Radial pulses 2+ and symmetric Skin: Warm and dry Lymph nodes: Cervical and supraclavicular nodes normal Neurologic: Gait normal, CN 2-12 grossly intact; Strength and sensation grossly normal in b ilateral upper and lower extremities Data: CT scan the abdomen pelvis September 2019 I personally viewed and interpreted CT scan images. Significant for bilateral normal-appea ring kidneys. There is no evidence of hydronephrosis stone or mass. Patient is noted to santos ve a approximately 3 cm mass on the left side of the bladder. This is very concerning for m alignancy. There is no significant retroperitoneal adenopathy noted. REVIEW OF SYSTEMS: [] Marked All Negative Constitutional Symptoms: [x] Fever [x] Chills [] Headache [x] Change in appetite [x] Change in weigh t [x] Change in energy [] Other: Neurological: [] Tremors [x] Dizzy Spells [x] Numbness/Tingling [] Seizures [] Other: Endocrine: [x] Excessive thirst [] Too hot [x] Too cold [x] Tired/Sluggish Gastrointestinal: [x] Abdominal pain [x] Nausea/Vomiting [x] Indigestion/heartburn [] Change in s tool size [x] Change in stool shape [x] Change in stool color [] Pain with swall owing [] Other: Cardiovascular: [x] Chest Pain [] Rapid heart rate [] High blood pressure [] Other: Integumentary: [] Skin rash [] Boils [] Persistent itch [] Other: Musculoskeletal: [] Neck Pain [x] Joint swelling/pain [x] Back pain [] Bone pain [] Other: Respiratory: [] Wheezing [] Frequent cough [x] Shortness of breath [] Other: Hematologic/Lymphatic: [] Swollen glands [] Blood clotting issues [] Prior blood transfusions []Other: Psychologic: Are you generally satisfied with your life? yes Do you feel severely depressed? yes Have you considered suicide? no Habits: Do you smoke? no Results for orders placed or performed in visit on 09/22/19 POCT Urinalysis Result Value Ref Range Color, UA, POC Yellow Yellow, Light Yellow Clarity, UA, POC Clear Glucose, UA, POC Negative Negative Bilirubin, UA, POC Negative Negative Ketones, UA, POC Negative Negative, 100 mg/dL Specific [place], UA, POC 1.010 1.001 - 1.030 Blood, UA, POC Negative Negative pH, UA, POC 7.0 5.0, 6.0, 7.0, 8.0, 5.5, 6.5, 7.5 Protein, UA, POC Negative Negative Urobilinogen, UA, POC 0.2 0.2, Negative, Normal, < 0.2 mg/dL, 1 mg/dL, < 0.2 E.U./dl, 1.0 E.U./dL, 0.2 mg/dL Nitrite, UA, POC Negative Negative Leukocyte Esterase, UA, POC Negative Negative Remark Lab Results Component Value Date CREA 0.93 09/08/2019 Yared Bryant MD's notes were reviewed in clinic today. No follow-ups on file.. This document was generated in part using voice recognition software. Frequent wrong word or sound-alike substitutions may have occurred due to the inherent limitations of the voice recognition software. Although I have attempted to edit the content, I have not thoroughly proofread this note, and eligibility counselor errors are very likely to occur. CC: Yared Bryant MD documented in this encounter Miscellaneous Notes Op Note - Yaakov Otto MD - 10/05/2019 10:12 AM PSTOperative Note Pt. Name/Age/: Teo Vargas 34 y.o. 1985 [facility]. Record Number: [id number] Date of admission: 10/05/2019 Date of Operation/Procedure: 10/05/2019 Preoperative Diagnosis: Bladder tumor Postoperative Diagnosis: same Surgeon: Yaakov Otto MD Stock Unloader(s): none Anesthesia Provider(s): Anesthesiologist: Joaquín Castano MD Anesthesia Type: General Procedure: TURBT 3.5 cm bladder tumor, urethral dilation Operative Indications: Teo Vargas is a 34 y.o. male who presents with signs and sympt oms consistent with bladder tumor. This was confirmed with an imaging study. The patient a nd/or guardian was counseled and consented to proceed. The risks, benefits, complications, treatment options, and expected outcomes were discussed with the patient and/or family. The patient was counseled and consented to proceed to the o perating room for TURBT. Discussed risks, including infection, bleeding, need to convert to an open operation, inadvertent injury to intra-abdominal organs, recognized or unrecognized , need for further surgery, incisional site herniation. Also discussed risks of failure to t reat, failure to diagnose. The patient and/or guardian understands and consents to proceed. Operative Findings: 3.5 cm bladder papillary tumor above the left UO Operation: After consent was obtained the patient was brought back to the operating room placed in a supine position. A preoperative timeout was performed. Bilateral SCDs applied lower e xtremity is and the patient received 500 mg of Cipro orally in the preoperative area. After successful induction of general anesthesia the patient was placed in the dorsolithotomy pos ition and his genitals were prepped and draped usual fashion. Patient was noted to have a very tight meatus as well as an overall small caliber urethra. Patient was dilated to 28 Mauritanian. We then placed a 26 Mauritanian resectoscope into the urethra . This took significant effort is again the urethra was very small caliber. The prostatic urethra was noted for a small prostate with very mild lateral lobe hyperplasia. Upon enteri ng the bladder mota cystoscopy was performed. A large approximately 3 and half centimeter pa pillary tumor was seen along the left lateral wall. As we began resecting we were able to i dentify the left ureteral orifice. The stalk of the papillary tumor was noted to be just ab ove the ureteral orifice. We resected the tumor down to the base and resected until we saw muscle fibers. We then cauterized the base as well as the surrounding tissue. We then irri gated the bladder multiple times to retrieve all of the bladder tumor fragments. We then ex amined the tumor base with minimal irrigation and there is no significant bleeding seen. We then examined the entire length of the urethra as we remove the scope. The patient was not ed to have multiple lacerations of the urethra due to the dilation. After the scope was rem edita the patient was noted to have a significant amount of rafael blood coming from the penis . Given this finding was decided to place a 16 Mauritanian Martinez catheter. 10 mils was instille d in the balloon. Minutes the procedure. Estimated Blood Loss: 45mL Transfused: No Drains: 16 fr martinez catheter Total IV Fluids: Specimen (s): Bladder tumor Complications: None; patient tolerated the procedure well. Disposition: PACU - hemodynamically stable. Patient Condition: stable Plan: The prescription monitoring program was used to monitor prior narcotic use. Will james l patient with pathology results. He will likely require surveillance cystoscopy 3 months. Electronically Signed by: Yaakov Otto MD, 10/05/2019 10:12 AM [facility] documented in this encounter Plan of Treatment +--------+---------+ + + + | Date | Type | Specialty | Care Team | Description | +--------+---------+ + + + | 08/16/ | Office | Urology | Abhijit Horowitz | | | 2020 | Visit | | MD [address] | | | | | | [place] | | | | | | [place] [address] | | | | | | [phone] | | | | | | | | +--------+---------+ + + + documented as of this encounter Procedures + +--------+ + + + | Procedure Name | Priori | Date/Time | Associated Diagnosis | Comments | | | ty | | | | + +--------+ + + + | CYSTOSCOPY TRANS | | 10/05/2019 | Bladder neoplasm | | | URETHRAL RESECTION | | 9:13 AM | | | | BLADDER TUMOR | | PST | | | + +--------+ + + + | SURGICAL PATHOLOGY | Routin | 10/05/2019 | | Results for this | | EXAM | e | 12:00 AM | | procedure are in the | | | | PST | | results section. | + +--------+ + + + documented in this encounter Results Surgical Pathology Exam (10/05/2019 12:00 AM PST) + + | Specimen | + + | | + + + + + | Narrative | Performed At | + + + | SPECIMEN(S): A BLADDER TUMOR SPECIMEN SOURCE: A. BLADDER TUMOR | [facility] | | CLINICAL HISTORY: D49.4 (neoplasm of unspecified behavior of | [facility] | | bladder) FINAL PATHOLOGIC DIAGNOSIS: Bladder, transurethral | | | resection: - Non-invasive, low grade urothelial carcinoma with the | | | following features: - Histologic grade: Urothelial carcinoma | | | (low grade). - Tumor configuration: Papillary, with | | | inverted features. - Muscularis propria: Muscularis propria | | | is present but uninvolved by carcinoma. - Microscopic extent | | | of tumor: Non-invasive, papillary carcinoma. - | | | Lymphovascular invasion: Not identified. COMMENT: As part of | | | [facility]' Quality Improvement Program, this case was | | | reviewed by another member of our pathology staff. TWK:NA:sm:C1NR | | | MICROSCOPIC EXAMINATION: Histologic sections of all submitted | | | blocks are examined by light microscopy. These findings, together | | | with the gross examination, support the pathologic diagnosis. | | | GROSS DESCRIPTION: The specimen, labeled "PG, bladder tumor," is | | | received in formalin and consists of a 6.2 x 4.7 x 0.6 cm aggregate of | | | red-brown friable tissue fragments. The specimen is entirely | | | submitted in cassettes (A1-A5). AM (under the direct supervision of | | | a pathologist) The Gross Description was prepared using a voice | | | recognition system. The report was reviewed for accuracy; however, | | | sound-alike word errors, addition and/or deletions may occur. If | | | there is any question about this report, please contact Client | | | Services. PERFORMING LABORATORY: The technical component was | | | performed by [facility], [address] [place] [id number] | | | (Atomizer Assembler: Evelia Schmidt MD; CLIA# [id number]). The | | | professional interpretation was performed by [facility], | | | [facility], [facility] [address] [facility] [place] [address]. | | | Diagnostician: Ramiro Pickard MD Pathologist Electronically Signed | | | 10/10/2019 | | + + + + +---------+ + + | Performing | Address | City/State/Zipcode | Phone Number | | Organization | | | | + +---------+ + + | [facility] | | | | | [facility] | | | | + +---------+ + + documented in this encounter Visit Diagnoses + + | Diagnosis | + + | Bladder neoplasm Neoplasm of unspecified nature of bladder | + + documented in this encounter Admitting Diagnoses + + | Diagnosis | + + | Bladder neoplasm Neoplasm of unspecified nature of bladder | + + documented in this encounter Administered Medications + +--------+---------+------+------+------+ | Medication Order | MAR | Action | Dose | Rate | Site | | | Action | Date | | | | + +--------+---------+------+------+------+ + +---+ | acetaminophen (TYLENOL) tablet | | | 1,000 mg 1,000 mg, Oral, EVERY 8 | | | HOURS (3 times per day), First | | | dose on Thu10/05/19 at 1400, | | | Start 8 hours after pre-op dose., | | | Post-op/Phase II | | + +---+ | | | + +---+ | albuterol-ipratropium 2.5-0.5 | | | mg/3 mL nebulizer solution 3 mL | | | 3 mL, Nebulization, ONCE PRN, | | | Wheezing, Starting Thu10/05/19 at | | | 0810, For 1 dose, Pre-op | | + +---+ | | | + +---+ | albuterol-ipratropium 2.5-0.5 | | | mg/3 mL nebulizer solution 3 mL | | | 3 mL, Nebulization, ONCE PRN, | | | Wheezing, Shortness of Breath, | | | Starting 10/05/19 at 0959, For | | | 1 dose, Recovery/Phase I | | + +---+ | | | + +---+ + +-------+ +--------+---+---+ | ciprofloxacin (CIPRO) tablet | Given | 10/05/20 | 500 mg | | | | 500 mg 500 mg, Oral, ONCE, Thu | | 8:27 | | | | | 10/05/19 at 0915, For 1 dose, Give | | AM PST | | | | | 2 hours before or 6 hours after | | | | | | | antacids, dairy, calcium, iron, | | | | | | | or zinc., Pre-op, Indications: | | | | | | | Surgical Prophylaxis | | | | | | + +-------+ +--------+---+---+ + +---+ | | | + +---+ | dextrose 50% injection 12.5-25 | | | g 12.5-25 g, Intravenous, EVERY | | | 15 MIN PRN, Low Blood Sugar, Give | | | 12.5g (25 mL) IV if blood | | | glucose 50-69 mg/dL. Give 25g | | | (50 mL) IV if blood glucose < 50, | | | Starting 10/05/19 at 0810, | | | Repeat in 15 min if blood glucose | | | remains < 70 mg/dL. Repeat | | | blood glucose in 30 min once | | | blood glucose > 70., Pre-op | | + +---+ | | | + +---+ | dextrose 50% injection 12.5-25 | | | g 12.5-25 g, Intravenous, EVERY | | | 15 MIN PRN, Low Blood Sugar, For | | | hypoglycemia. Give 12.5g (25ml) | | | IV if blood glucose 50-69 | | | mg/dL. Give 25g (50ml) IV if | | | blood glucose < 50, Starting Wed | | | 10/05/19 at 0959, Give over 2 min. | | | Repeat in 15 min if blood | | | glucose remains < 70 mg/dL. | | | Repeat blood glucose in 30 min | | | once blood glucose > 70., | | | Recovery/Phase I | | + +---+ | | | + +---+ + +-------+ +--------+---+---+ | fentaNYL (PF) injection 25-50 | Given | 10/05/20 | 50 mcg | | | | mcg 25-50 mcg, Intravenous, | | 19 10:54 | | | | | EVERY 5 MIN PRN, Pain, Initial | | AM PST | | | | | postop urgent pain or escalating | | | | | | | pain, Starting 10/05/19 at | | | | | | | 0959, For 4 doses, Every 5 | | | | | | | minutes PRN for initial postop | | | | | | | urgent pain or escalating pain up | | | | | | | to 2 doses maximum. If patient | | | | | | | meets opioid tolerant definition, | | | | | | | can give up to 4 doses maximum. | | | | | | | First dose must be lowest dose. | | | | | | | Use Pasero Sedation Scale. | | | | | | | [Opioid tolerant = One week or | | | | | | | longer, whhypv-iuy-hrums use of | | | | | | | at least the following DAILY | | | | | | | dose: 60mg oral morphine, 60mg | | | | | | | oral hydrocodone, 30mg oral | | | | | | | oxycodone, 8mg oral | | | | | | | hydromorphone, fentanyl patch | | | | | | | 25mcg/hr, or equivalent dose of | | | | | | | another opioid], Recovery/Phase I | | | | | | + +-------+ +--------+---+---+ +-------+ +--------+---+---+ | Given | 10/05/20 | 25 mcg | | | | | 19 10:47 | | | | | | AM PST | | | | +-------+ +--------+---+---+ | Given | 10/05/20 | 25 mcg | | | | | 19 10:42 | | | | | | AM PST | | | | +-------+ +--------+---+---+ + +---+ | | | + +---+ | hydrALAZINE (APRESOLINE) | | | injection 5 mg 5 mg, | | | Intravenous, EVERY 20 MINUTES | | | PRN, For SBP > 180, DBP > 100, | | | Starting 10/05/19 at 0959, | | | Hold if HR > 100. Maximum total | | | dose 40 mg. Use labetalol first | | | if available., Recovery/Phase I | | + +---+ | | | + +---+ | HYDROmorphone (DILAUDID) | | | injection 0.2-0.4 mg 0.2-0.4 mg, | | | Intravenous, EVERY 1 HOUR PRN, | | | Pain, Starting Thu10/05/19 at | | | 1125, If oral route not an | | | option. Slow IV push, not faster | | | than 0.3mg/minute. First dose | | | must be lowest dose, titrate to | | | effective dose by repeat of | | | lowest dose every 30 minutes prn | | | pain, may not exceed maximum dose | | | ordered per interval. Use | | | Pasero Sedation Scale., | | | Post-op/Phase II | | + +---+ | | | + +---+ | HYDROmorphone (DILAUDID) | | | injection 0.2-0.6 mg 0.2-0.6 mg, | | | Intravenous, EVERY 5 MIN PRN, | | | Pain, Starting Thu10/05/19 at | | | 0959, First dose must be lowest | | | dose, can increase subsequent | | | doses by 0.2mg within dosing | | | range. If patient meets opioid | | | tolerant definition, can start | | | with 0.4mg dose. [Maximum total | | | PACU dose 4mg] Use Pasero | | | Sedation Scale. [Opioid tolerant | | | = One week or longer, | | | hmkasb-npe-ybdid use of at least | | | the following DAILY dose: 60mg | | | oral morphine, 60mg oral | | | hydrocodone, 30mg oral oxycodone, | | | 8mg oral hydromorphone, fentanyl | | | patch 25mcg/hr, or equivalent | | | dose of another opioid], | | | Recovery/Phase I | | + +---+ | | | + +---+ | ibuprofen (ADVIL, MOTRIN) | | | tablet 400 mg 400 mg, Oral, | | | EVERY 8 HOURS (3 times per day), | | | First dose on Thu10/05/19 at | | | 1630, If urine output is less | | | than 240ml/8 hours (30ml/hr) or | | | if signs of bleeding, contact MD | | | and hold. Administer with food | | | or snack, Post-op/Phase II | | + +---+ | | | + +---+ + +-------+ +-------+---+---+ | ketorolac (TORADOL) injection | Given | 10/05/20 | 15 mg | | | | 15 mg 15 mg, Intravenous, ONCE, | | 19 10:59 | | | | | Thu10/05/19 at 1115, For 1 dose, | | AM PST | | | | | If urine output is less than | | | | | | | 240ml/8 hours (30ml/hr) or if | | | | | | | signs of bleeding, contact MD and | | | | | | | hold., Post-op/Phase II | | | | | | + +-------+ +-------+---+---+ + +---+ | | | + +---+ | labetalol (TRANDATE) 5 mg/mL | | | injection 5 mg 5 mg, | | | Intravenous, EVERY 5 MIN PRN, For | | | SBP > 180, DBP > 100, Starting | | | Thu10/05/19 at 0959, Hold if HR < | | | 60.Notify anesthesia if patient | | | requires more than 50mg., | | | Recovery/Phase I | | + +---+ | | | + +---+ + + + +---+---+---+ | lactated ringers (LR) infusion | Continue | 10/05/20 | | | | | at 10-100 mL/hr, Intravenous, | d by | 19 9:27 | | | | | CONTINUOUS, Starting 10/05/19 | Anesthes | AM PST | | | | | at 0830, TKO., Pre-op | ia | | | | | + + + +---+---+---+ +---------+ +--------+-------+---+ | New Bag | 10/05/20 | 1,000 | 100 | | | | 19 8:28 | mLs | mL/hr | | | | AM PST | | | | +---------+ +--------+-------+---+ + +---+ | | | + +---+ | meperidine (DEMEROL) injection | | | 12.5-25 mg 12.5-25 mg, | | | Intravenous, PRN, Shivering, | | | Starting 10/05/19 at 0959, For | | | 2 doses, May Repeat once in 5 | | | min., Recovery/Phase I | | + +---+ | | | + +---+ + +-------+ +------+---+---+ | ondansetron (ZOFRAN) injection | Given | 10/05/20 | 4 mg | | | | 4 mg 4 mg, Intravenous, ONCE | | 19 12:25 | | | | | PRN, Nausea, Starting Wed 4/19 | | PM PST | | | | | at 0959, For 1 dose, | | | | | | | Recovery/Phase I | | | | | | + +-------+ +------+---+---+ +---+---+ | | | +---+---+ + +-------+ + +---+---+ | opium-mya (B&O) 60-16.2 | Given | 10/05/20 | 1 | | | | mg suppository 1 suppository 1 | | 19 11:03 | supposit | | | | suppository, Rectal, EVERY 4 | | AM PST | ory | | | | HOURS PRN, Bladder Spasms, | | | | | | | Starting Thu10/05/19 at 1052, | | | | | | | Insert gently. Hold all | | | | | | | antispasmodics after 0200 hours., | | | | | | | Post-op/Phase II | | | | | | + +-------+ + +---+---+ +---+---+ | | | +---+---+ + +-------+ +------+---+---+ | oxybutynin (DITROPAN) tablet 5 | Given | 10/05/20 | 5 mg | | | | mg 5 mg, Oral, EVERY 8 HOURS | | 19 12:15 | | | | | PRN, Bladder Spasms, Starting Wed | | PM PST | | | | | 10/05/19 at 1125, Hold all | | | | | | | antispasmodics after 0200 hours., | | | | | | | Post-op/Phase II | | | | | | + +-------+ +------+---+---+ +---+---+ | | | +---+---+ + +-------+ +------+---+---+ | oxyCODONE (ROXICODONE) tablet | Given | 10/05/20 | 5 mg | | | | 2.5-10 mg 2.5-10 mg, Oral, EVERY | | 19 1:42 | | | | | 3 HOURS PRN, Pain, Starting Wed | | PM PST | | | | | 10/05/19 at 1125, First dose must | | | | | | | be the lowest dose, can titrate | | | | | | | to effective dose by repeat of | | | | | | | lowest dose every 60 minutes prn | | | | | | | pain, may not exceed maximum dose | | | | | | | ordered per interval. Use Pasero | | | | | | | Sedation Scale., Post-op/Phase | | | | | | | II | | | | | | + +-------+ +------+---+---+ +-------+ +------+---+---+ | Given | 10/05/20 | 5 mg | | | | | 19 12:14 | | | | | | PM PST | | | | +-------+ +------+---+---+ +---+---+ | | | +---+---+ + +-------+ +--------+---+---+ | phenazopyridine (PYRIDIUM) | Given | 10/05/20 | 200 mg | | | | tablet 200 mg 200 mg, Oral, 3 | | 19 12:14 | | | | | TIMES DAILY PRN, Urinary | | PM PST | | | | | Symptoms, urinary burning., | | | | | | | Starting Thu10/05/19 at 1125, | | | | | | | Administer with meals., | | | | | | | Post-op/Phase II | | | | | | + +-------+ +--------+---+---+ + +---+ | | | + +---+ | promethazine (PHENERGAN) (IV | | | ONLY) injection 6.25 mg 6.25 mg, | | | Intravenous, EVERY 15 MIN PRN, | | | Nausea, Vomiting, Starting Wed | | | 10/05/19 at 0959, For 4 doses, | | | TAKE PRECAUTIONS WHEN | | | ADMINISTERING Dilute to 10-20mL | | | with NS. Give over 2-3 minutes | | | into large vein. Use ondansetron | | | first if both are ordered., | | | Recovery/Phase I | | + +---+ | | | + +---+ documented in this encounter
--- OUTSIDE RECORDS SUMMARY | ~2020-07-24 | XMS | Encounter Summary ---
Demographics + + + | Address | [address] | | | [place] [address] | + + + | Home Phone | | + + + | Preferred Language | Unknown | + + + | Marital Status | Single | + + + | Buddhism Affiliation | Unknown | + + + | Race | White | + + + | Ethnic Group | Not or | + + + Author + + + | Author | [facility] | + + + | Organization | [facility] | + + + | Address | Unknown | + + + | Phone | Unavailable | + + + Support + + +---------+ + | Name | Relationship | Address | Phone | + + +---------+ + | Ole Vargas Sr. | ECON | Unknown | | + + +---------+ + Care Team Providers + +------+ + | Care Towel Hemmer Name | Role | Phone | + +------+ + | No Pcp Per Patient | PCP | Unavailable | + +------+ + Reason for Visit + +--------+ + | Reason | Onset | Comments | | | Date | | + +--------+ + | Erroneous Encounter | 05/07/ | | | - Disregard | 2011 | | + +--------+ + Consultation (Routine) +--------+--------+ + + + + | Status | Reason | Specialty | Diagnoses / | Referred By | Referred To | | | | | Procedures | Contact | Contact | +--------+--------+ + + + + | Closed | | Orthopedics | Diagnoses | Du, | Wendy, | | | | | L scapula | Jun Montero MD | [address] | | | | | fx | [address] | | | | | | Street | [place], [place] | | | | | | [address] | [address] | | | | | | [place], | Phone: | | | | | | [place] [address] | [phone] | | | | | | Phone: | Fax: | | | | | | [phone] | [phone] | | | | | | Fax: | | | | | | | [phone] | | +--------+--------+ + + + + Encounter Details +--------+---------+ + + + | Date | Type | Department | Care Team | Description | +--------+---------+ + + + | 05/06/ | Office | Orthopaedics | Francisca Nevarez PA | Scapula fracture | | 2011 | Visit | [facility] | [address] | (Primary Dx); EE-NO | | | | for Health and | [facility], | SHOW | | | | Healing [address] | [place] [address] | | | | | [facility] for | [phone] | | | | | Health and Healing, | | | | | | [facility] | | | | | | Floor [place], [place] | | | | | | [address] | | | | | | [phone] | | | +--------+---------+ + + + Social History + +-------+ +--------+------+ | Tobacco Use | Types | Packs/Day | Years | Date | | | | | Used | | + +-------+ +--------+------+ | Never Assessed | | | | | + +-------+ +--------+------+ + + + | Sex Assigned at | Date Recorded | | | | + + + | Not on file | | + + + documented as of this encounter Progress Francisca Bland PA - 05/07/2012 9:57 AM PDT This encounter was opened in error. Please disregard this note. documented in this encounter Plan of Treatment Not on filedocumented as of this encounter Visit Diagnoses + + | Diagnosis | + + | Scapula fracture - Primary Closed fracture of unspecified part of scapula | + + | EE-NO SHOW | + + documented in this encounter"
--- OUTSIDE RECORDS SUMMARY | ~2020-07-24 | XMS | Encounter Summary ---
Demographics + + + | Address | [address] | | | [place] [address] | + + + | Home Phone | | + + + | Preferred Language | Unknown | + + + | Marital Status | Single | + + + | Restorationist Affiliation | 1013 | + + + | Race | White | + + + | Ethnic Group | Not or | + + + Author + + + | Author | [facility] | | | and [place] | + + + | Organization | [facility] | | | [...] [place] | | | | | [address] | | + + + + + Care Team Providers + +------+ + | Care Residential Living Assistant Name | Role | Phone | + +------+ + | Yared Bryant MD | PCP | | + +------+ + Reason for Visit + + + | Reason | Comments | + + + | Medication Refill | | + + + Encounter Details +--------+--------+ + + + | Date | Type | Department | Care Team | Description | +--------+--------+ + + + | 01/01/ | Refill | [facility] | Yaakov Otto | Medication Refill | | 2019 | | [address] | MD Ang[address] | | | | | [place] | [place] | | | | | [address] | [place], [place] | | | | | [phone] | [address] | | | | | | | | | | | | (Fax) | | +--------+--------+ + + + Social History + + [...] | | | | | [place] [address] | | | | | | [phone] | | | | | | | | +--------+---------+ + + + documented as of this encounter Visit Diagnoses Not on filedocumented in this encounter"
--- OUTSIDE RECORDS SUMMARY | ~2020-07-24 | XMS | Encounter Summary ---
Demographics + + + | Address | [address] | | | [place] [address] | + + + | Home Phone | | + + + | Preferred Language | Unknown | + + + | Marital Status | Single | + + + | Mormonism Affiliation | 1013 | + + + [...] [address] | | | | | [facility] [place] | | | | | [address] | | + + + + + Care Team Providers + +------+ + | Care Engrosser Name | Role | Phone | + +------+ + | No, Physician | PCP | Unavailable | + +------+ + Reason for Visit + + + | Reason | Comments | + + + | Neck Injury | | + + + Encounter Details +--------+---------+ + + + | Date | Type | Department | Care Team | Description | +--------+---------+ + + + | 12/17/ | Office | [facility] | Iwona Keyes | Strain of neck | | 2018 | Visit | [facility] | MD [address] | muscle, subsequent | | | | [address] | encounter (Primary | | | | [address] | [place] [address] | Dx); Place of | | | | [facility], [place] | [phone] | occurrence, | | | | [address] | | industrial places | | | | [phone] | | and premises | +--------+---------+ + + + Social History [...] + + + | Blood Pressure | 116/57 | 12/17/2017 4:05 PM | | | | | PST | | + + + + + | Pulse | 75 | 12/17/2017 4:05 PM | | | | | PST | | + + + + + | Temperature | 36.4 C (97.5 F) | 12/17/2017 4:05 PM | | | | | PST [...] Weight | 107 kg (236 lb) | 12/17/2017 4:05 PM | | | | | PST | | + + + + + | Height | 177.8 cm (5' 10") | 12/17/2017 4:05 PM | | | | | PST | | + + + + + | Body Mass Index | 33.86 | 12/17/2017 4:05 PM | | | | | PST | | + + + + + documented in this encounter Progress Notes Iwona Keyes MD - 12/17/2017 4:15 PM PSTEmployer: [employer] Guarantor: [employer] Date of injury: 06/18/17 Claim number: [id number] Chief complaint: Follow-up neck injury Subjective: 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 At his last v isit he was referred for physical therapy. States he had his initial evaluation has not rec eived any services since. States he has not been notified of additional appointments or maggi roval for continued services. He has been doing his regular job without restriction, recent ly notes increased stiffness, pain and discomfort over the right posterior neck, radiating d own towards the shoulder and across the anterior right chest as well. No radiation of pain into the lower arm or hand and no associated numbness, tingling, or weakness of the extremit ies. He denies any new injury or activity that may have caused an exacerbation of his sympt oms. Past medical history, medications, allergies reviewed Review of systems: As per HPI Objective: Vital signs as noted, nursing notes reviewed. Mgarnxe-mqrs-zewgsrwzf, well-nourished, in no apparent distress, pleasant cooperative. Neck normal to inspection. No paraspinous muscle spasticity. No vertebral point tendernes s, crepitus, or step-off. Diffusely tender over the right trapezius. Full range of motion with mild discomfort. Negative Spurling testing. Right shoulder-normal to inspection. No gross asymmetry or bony deformity. Diffusely tend er over the anterior chest wall just inferior to the clavicle. Also tender to light touch o guillermina the right deltoid. Does have decreased range of motion secondary to pain. Imaging/diagnostics: None indicated this visit Pending interventions: Continue conservative management. Assessment: 1. Right trapezius strain Plan: Proceed with physical therapy once authorized and approved. Return here in 4 weeks, sooner for acute worsening or other concerns. He voices understanding and agreement. E: Regular duty R: None Impairment undetermined at this point in time, based on current objective findings it is no t an anticipated consequence of this injury however patient has not yet reached MMI status. This note was dictated using [employer] voice recognition software. Occasional wrong- word or [...] | | | | | [place] [address] | | | | | | [phone] | | | | | | | | +--------+---------+ + + + documented as of this encounter Visit Diagnoses + + | Diagnosis | + + | Strain of neck muscle, subsequent encounter - Primary | + + | Place of occurrence, industrial places and premises | + + documented in this encounter
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
--- OUTSIDE RECORDS SUMMARY | ~2020-07-24 | XMS | Encounter Summary ---
Demographics + + + | Address | [address] | | | [place] [address] | + + + | Home Phone | | + + + | Preferred Language | Unknown | + + + | Marital Status | Single | + + + | Latter-Day Affiliation | Unknown | + + + | Race | White | + + + | Ethnic Group | Not or | + + + Author + + + | Author | [facility] | + + + | Organization | [facility] | + + + | Address | Unknown | + + + | Phone | Unavailable | + + + Support + + +---------+ + | Name | Relationship | Address | Phone | + + +---------+ + | Ole Vargas Sr. | ECON | Unknown | | + + +---------+ + Care Team Providers + +------+ + | Care Collection Systems Foreman Name | Role | Phone | + +------+ + | No Pcp Per Patient | PCP | Unavailable | + +------+ + Reason for Visit + +--------+ + | Reason | Onset | Comments | | | Date | | + +--------+ + | Care Coordination | 08/01/ | | | | 2019 | | + +--------+ + Encounter Details +--------+ + + + + | Date | Type | Department | Care Team | Description | +--------+ + + + + | 08/01/ | Telephone | [facility] | Reji Prakash MD | Care Coordination | | 2019 | | Center at [facility] [address] | [address] | | | | | [address] [place] | [facility] | | | | | [facility] and | [place] [address] | | | | | [facility] | [phone] | | | | | [place], [place] | | | | | | [address] | | | | | | [phone] | | | +--------+ + + + [...] this encounter Miscellaneous Notes Telephone Encounter - Angelica Looney RN - 08/01/2019 4:52 PM PDTCalled pt to let him kno w that this nurse reached out to urology regarding his urgent referral, and that they will c ontact him shortly. documented in this en counter Plan of Treatment Not on filedocumented as of this encounter Visit Diagnoses Not on filedocumented in this encounter"
--- OUTSIDE RECORDS SUMMARY | ~2020-07-24 | XMS | Encounter Summary ---
Demographics + + + | Address | [address] | | | [place] [address] | + + + | Home Phone | | + + + | Preferred Language | Unknown | + + + | Marital Status | Single | + + + | Presybeterian Affiliation | Unknown | + + + | Race | White | + + + | Ethnic Group | Not or | + + + Author + + + | Author | [facility] | + + + | Organization | [facility] | + + + | Address | Unknown | + + + | Phone | Unavailable | + + + Support + + +---------+ + | Name | Relationship | Address | Phone | + + +---------+ + | Ole Vargas Sr. | ECON | Unknown | | + + +---------+ + Care Team Providers + +------+ + | Care Office Machine Repair Shop Supervisor Name | Role | Phone | + +------+ + | No Pcp Per Patient | PCP | Unavailable | + +------+ + Encounter Details +--------+ + + + + | Date | Type | Department | Care Team | Description | +--------+ + + + + | 05/31/ | Abstract | [facility] | Clinic, Surgery | | | 2019 | | [place] [address] [phone] | | | | | | [facility] | | | | | | for [facility] and | | | | | | Healing, [address] | | | | | | [place], [place] | | | | | | [address] | | | | | | [phone] | | | +--------+ + + + [...]
--- OUTSIDE RECORDS SUMMARY | ~2020-07-24 | XMS | Encounter Summary ---
Demographics + + + | Address | [address] | | | [place] [address] | + + + | Home Phone | | + + + | Preferred Language | Unknown | + + + | Marital Status | Single | + + + | Sikhism Affiliation | 1013 | + + + | Race | White | + + + | Ethnic Group | Not or | + + + Author + + + | Author | [facility] | | | and [place] | + + + | Organization | [facility] | | | and [...] [place] | | | | | [address] | | + + + + + Care Team Providers + +------+ + | Care Spray Cementer Name | Role | Phone | + +------+ + | Yared Bryant MD | PCP | | + +------+ + Reason for Visit +---------+ + | Reason | Comments | +---------+ + | Post Op | bladder mass | +---------+ + Encounter Details +--------+ + + + + | Date | Type | Department | Care Team | Description | +--------+ + + + + | 10/06/ | Clinical | [facility] | Yaakov Otto | Bladder neoplasm | | 2019 | Support | [address] | MD Ang[address] | (Primary Dx); | | | | [place] | [address] | Post-operative state | | | | [address] | [place] | | | | | [phone] | [address] | | | | | | | | | | | | (Fax) | | +--------+ + + + + [...] documented as of this encounter Progress Notes Treva Sutton RN - 10/06/2019 10:00 AM PSTPatient called today regarding prescription s after surgery. He said he didn't get the antibiotic as the pharmacy had a question. Unsure why they didn't contact our office for nitrofurantoin prescription clarification (GIL fregoso lt says daily for 30 days and he prescribed 3 to take daily until his catheter was removed). Notified his significant other that no antibiotic is needed as catheter as been removed. El ectronically signed by Treva Sutton, RN at 10/10/2019 9:49 AM Gage, Sujey Jennings N - 10/06/2019 10:00 AM PSTPhilip presents for post op catheter removal after TURBT with Dr. Otto on 10/05/19. He has been extremely uncomfortable due to the catheter. Urine in bag is bright orange. He has a few nickel sized areas of blood on his pad After deflating ballo on, 16 Fr Wilcox silicone catheter removed intact. Slight blood present at urethral meatus. A dvised him to drink plenty of water and to avoid constipation. He will follow up in 3 months for surveillance cystoscopy and we will call him with pathology results once they become av ailable............................................Treva Sutton, RN, RN on 10/06/19 at 10:31 AM documented in this encounter Plan of Treatment +--------+---------+ + + + | Date | Type | Specialty | Care Team | Description | +--------+---------+ + + + | 08/16/ | Office | Urology | Abhijit Horowitz | | | 2019 | Visit | | [address] | | | | | | [place] | | | | | | [place] [address] | | | | | | [phone] | | | | | | | | +--------+---------+ + + + documented as of this encounter Visit Diagnoses + + | Diagnosis | + + | 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
--- OUTSIDE RECORDS SUMMARY | ~2020-07-24 | XMS | Encounter Summary ---
Demographics + + + | Address | [address] | | | [place] [address] | + + + | Home Phone | | + + + | Preferred Language | Unknown | + + + | Marital Status | Single | + + + | Druze Affiliation | 1013 | + + + | Race | White | + + + | Ethnic Group | Not or | + + + Author + + + | Author | [facility] | | | and [place] | + + + | Organization | [facility] | | | [...] [place] | | | | | [address] | | + + + + + Care Team Providers + +------+ + | Care Tile Burner Name | Role | Phone | + [...] | | | | bladder | | [place], | | | | | [address] | | [place] [address] | | | | | (ICD-10-CM) | | Phone: | | | | | - 239.4 | | | | | | | (ICD-9-CM) - | | Fax: | | | | | Bladder | | | | | | | neoplasm | | | | | | | Procedures | | | | | | | NE | | | | | | | [...] | +--------+ + + + + | 10/05/ | Anesthesia | [facility] | Eyad, | | | 2019 | Event | [facility] | Joaquín Mendez MD | | | | | [address] | [address] | | | | | [place], [place] | [place], [place] | | | | | [address] | [address] | | | | | [phone] | | | +--------+ + + + + Anesthesia Record + + + + + | Procedure Name | Responsible | Anesthesia Start | Anesthesia Stop Time | | | Anesthesiologist | Time | | + + + + + | CYSTOSCOPY; TRANS | Joaquín Mendez | 10/05/19912 | 10/05/19 1021 | | URETHRAL RESECTION | MD Eyad | | | | BLADDER TUMOR (N/A | | | | | Bladder) | | | | + + + + + +----+---+ + + | Da | T | Event | Comment | | te | i | | | | | m | | | | | e | | | +----+---+ + + | 12 | 0 | | | | /0 | 9 | | | | 4/ | 0 | | | | 20 | 2 | | | | 19 | | | | +----+---+ + + | | 0 | An Checkout | Pre-use anesthesia machine/equipment checkout. | | | 9 | | | | | 1 | | | | | 3 | | | +----+---+ + + | | 0 | An Start | Reassessment prior to anesthesia induction/procedure. | | | 9 | | | | | 1 | | | | | 3 | | | +----+---+ + + | | 0 | Preoxygenat | | | | 9 | ed | | | | 1 | | | | | 6 | | | +----+---+ + + | | 0 | An | | | | 9 | Induction | | | | 1 | | | | | 9 | | | +----+---+ + + | | 0 | An | | | | 9 | Intubation | | | | 1 | | | | | 9 | | | +----+---+ + + | | 0 | AN Bite | | | | 9 | Block | | | | 2 | | | | | 0 | | | +----+---+ + + | | 0 | Gilchrist | | | | 9 | 43-degrees | | | | 2 | | | | | 9 | | | +----+---+ + + | | 0 | Pre-Procedu | | | | 9 | ral Timeout | | | | 3 | Completed | | | | 0 | | | +----+---+ + + | | 0 | First | | | | 9 | Inc/Proc St | | | | 3 | | | | | 1 | | | +----+---+ + + | | 1 | AN No | TOF 4/4 with sustained tetanus. | | | 0 | Residual | | | | 0 | NMB | | | | 3 | | | +----+---+ + + | | 1 | Oropharynx | | | | 0 | Suctioned | | | | 0 | | | | | 3 | | | +----+---+ + + | | 1 | Breathing | | | | 0 | Spontaneous | | | | 0 | ly | | | | 8 | | | +----+---+ + + | | 1 | Extubation/ | | | | 0 | Airway LDA | | | | 1 | Removal | | | | 7 | | | +----+---+ + + | | 1 | An Stop | Patient handed off to recovery nurse. | | | 2 | | | | | 1 | | | +----+---+ + + +------+ | Meds | +------+ + + + | Name | Total | + + + | midazolam | 2 mg | + + + | Fentanyl | 100 mcg | + + + | lidocaine 2% (PF) | 40 mg | + + + | propofol | 200 mg | + + + | propofol | 151.28 mg | + + + | succinylcholine | 100 mg | + + + | dexamethasone | 10 mg | + + + | ondansetron | 4 mg | + + + | lactated ringers (LR) infusion | 1,000 mL | + + + + + | Name | + + | N2O Flow Rate (L/Min) | + + | O2 Flow Rate (L/Min) | + + | Insp O2 | + + | Exp SEV | + + | Air Flow Rate (L/Min) | + + + + | No blood administrations on file. | + + +--------+ + + + | Type | Details | Placement | Removal | +--------+ + + + | Urethr | 10/05/19; 1011; indicated due to | 10/05/19 1011 by | | | al | specific surgical procedure; All | Martha Thompson RN | | | Cathet | elements; All elements; Bag | | | | er | positioned below the bladder; | | | | | indwelling double lumen catheter; | | | | | 100% silicone; 16; Hematuria | | | | | (indication for martinez: | | | | | hematuria); 1; 10; 10; other (see | | | | | comments) (general anesthesia) | | | +--------+ + + + | Periph | 10/05/19; 836; Right; Hand; | 10/05/19 0837 by | 10/05/19 1345 by | | eral | [id number]-[id number]-[id number] catheter system; | Yeni Sandy RN | Rosaline Alvarado, | | IV | 20 gauge; distraction, | | RN | | | intradermal injection; no longer | | | | | indicated, removed per | | | | | policy/procedure, catheter/device | | | | | intact; short term use; | | | | | 10/05/19; 1345 | | | +--------+ + + + | Airway | Placement Date: 10/05/19; | 10/05/19918 by | 10/05/19 1017 by | | | Placement Time: 918 (created via | Joaquín Mendez | Joaquín Mendez | | | procedure documentation); Mask | MD Eyad | MD Eyad | | | Ventilation: N/A; Airway Grade: | | | | | 1; Successful Technique: video | | | | | scope; Laryngoscope Blade Size: | | | | | 3; Attempts: 1; Airway Type: | | | | | endotracheal; Size: 7; Airway | | | | | Tube Secured At: 23; Trauma: | | | | | none; Other Equipment: stylette; | | | | | Placement Check: exhaled CO2 | | | | | detection device, bilateral chest | | | | | rise; Removal Date: 10/05/19; | | | | | Removal Time: 1017 | | | +--------+ + + + | Wound | 10/05/19; 925; Incision; | 10/05/19925 by | 10/05/19 1345 by | | | Bilateral; perineum; Healing; | Martha Thompson RN | Rosalinejodie Alvarado, | | | 10/05/19; 7574 | | RN | +--------+ + + + documented in this encounter Social History + + + +--------+------+ | [...] + + documented as of this encounter OR Notes Anesthesia Postprocedure Evaluation - Joaquín Castano MD - 10/05/2019 12:47 PM PSTF ormatting of this note might be different from the original. ANESTHESIA POSTANESTHESIA EVALUATION Teo Vargas 34 y.o. male 1985 [id number] Procedure(s) CYSTOSCOPY; TRANS URETHRAL RESECTION BLADDER TUMOR (N/A Bladder) Cooperates? Yes Mental Status Performs simple tasks. Respiratory Satisfactory - Airway patent (self maintained). Cardiovascular Satisfactory - Blood pressure and heart rate acceptable Temperature Satisfactory Pain Satisfactory N/V Control Satisfactory Hydration Satisfactory - No signs of dehydration Vitals Value Taken Time Temp 36.6 C (97.9 F) 10/05/2019 10:18 AM Pulse 66 10/05/2019 12:47 PM Resp 22 10/05/2019 11:25 AM BP 129/83 10/05/2019 12:32 PM Arterial Line BP Arterial Line BP 2 SpO2 100 % 10/05/2019 12:47 PM Vitals shown include unvalidated device data. Electronically signed by Joaquín Castano MD 10/05/2019 12:47 PM [facility] nesthesia Procedure Notes - Joaquín Castano MD - 10/05/20 9:28 AM PSTAssociated Order(s): AirwayAnesthesia Airway Placement 10/05/2019 9:19 AM Preprocedure check: patient identified, oxygen, airway assessed, suction, airway equipment checked and patient reassessment prior to induction Rapid Sequence Induction: yes Mask ventilation: N/A Successful technique: videoscope Laryngoscope blade size: 3 Airway grade: 1 (Full view of glottis) Other equipment: stylette Attempts: 1 Airway type: endotracheal Size: 7 Cuffed: cuffed Route, reference point: right side of mouth Tube depth: 23 cm Tube secured with: adhesive tape Trauma: none Tube placement verification: bilateral chest rise and carbon dioxide detection Performing provider: Joaquín Castano MD Authorizing provider: Joaquín Castano MD Please see intraoperative grid for any additional medication documentation. nesthesia Pre procedure Evaluation - Joaquín Castano MD - 10/04/2019 8:42 PM PSTFormatting of thi s note might be different from the original. ANESTHESIA PREANESTHESIA EVALUATION Teo Vargas 34 y.o. male 1985 [id number] Procedure(s): CYSTOSCOPY TRANS URETHRAL RESECTION BLADDER TUMOR (N/A Bladder) Medical,anesthesia, drug, allergy histories reviewed, NPO status verified. ECG reviewed. Labs reviewed. Review of Systems / Med History Anesthesia History No anesthesia complications except where noted below. Cardiovascular Negative except where noted below. Exercise tolerance >4 METS(-) dysrhythmias: . Pulmonary Heavy MJ smoker.(+) sleep apnea.(+) Sleep apnea history/interventions: CPAP.(+) tobacco use. Gastrointestinal/Hepatic Reflux "all the time". (+) hiatal hernia. (+) acid reflux. Endocrine (-) Diabetes. Hematology/Other (-) coagulopathy. Neuromuscular (-) TIA, CVA. (-) seizures. Physical Exam Airway MP II, TM >3 FB, Mouth opening >2 FB. Neck: full ROM, extends >30 degrees. Jaw protrus ion normal. CV Rhythm regular. (-) murmur. Pulm Clear to auscultation bilaterally. Anesthesia Plan ASA: 3 (paulino untreated) Type: General. Given constant GERD symptoms, will plan on GETA. Induction: Intravenous. Potential problems: None anticipated. Monitors: Standard ASA monitors. Postop Pain Management: Consent statement: Anesthetic plan, alternatives, risks and benefits discussed with patient. drug reaction, he art problems, nausea, pain, perioperative CV events, respiratory events, sore throat, stroke , delirium Consenting person understands and agrees to proceed. PARQ. documented in this encounter Miscellaneous Notes Anesthesia Post-op Handoff - Joaquín Castano MD - 10/05/2019 10:20 AM PST ANESTHESIA HANDOFF NOTE Teo Vargas 34 y.o. male 1985 [id number] CYSTOSCOPY; TRANS URETHRAL RESECTION BLADDER TUMOR (N/A Bladder) HANDOFF NOTE Handoff Protocol Used: post-procedure handoff checklist completed The following were completed during the transfer of care: 1. Identification of patient 2. Identification of responsible practitioner (primary service) 3. Discussion of pertinent medical history 4. Discussion of the surgical/procedure course (procedure, reason for surgery, procedure pe rformed) 5. Intraoperative anesthetic management and issues/concerns 6. Expectations/plans for the early post-procedure period 7. Opportunity for questions and acknowledgement of understanding of report from receiving team Patient Location: Phase I Condition: sedated Airway/O2: other (see comments) Multimodal analgesia: multimodal analgesia used between 6 hours prior to anesthesia start t o PACU discharge Comments: Supplemental Oxygen used as necessary to maintain Oxygen Saturation at or above 9 2% The significant anesthesia concerns and VS in Epic were reviewed with the receiving team. Joaquín Castano MD 10/05/2019 10:20 AM [facility] documented in this encounter Plan of [...] | | | | | [place] [address] | | | | | | [phone] | | | | | | | | +--------+---------+ + + + documented as of this encounter Procedures + +--------+ + + + | Procedure Name | Priori | Date/Time | Associated Diagnosis | Comments | | | ty | | | | + +--------+ + + + | ANE AIRWAY NOTE | Routin | 10/05/2019 | | Results for this | | | e | 9:28 AM | | procedure are in the | | | | PST | | results section. | + +--------+ + + + documented in this encounter Results Airway (10/05/2019 9:28 AM PST) + + + | Narrative | Performed At | + + + | Joaquín Castano MD 10/05/2019 9:29 AM Anesthesia | | | Airway Placement 10/05/2019 9:19 AM Preprocedure check: patient | | | identified, oxygen, airway assessed, suction, airway equipment | | | checked and patient reassessment prior to induction Rapid Sequence | | | Induction: yes Mask ventilation: N/A Successful technique: | | | videoscope Laryngoscope blade size: 3 Airway grade: 1 (Full view | | | of glottis) Other equipment: stylette Attempts: 1 Airway type: | | | endotracheal Size: 7 Cuffed: cuffed Route, reference point: right | | | side of mouth Tube depth: 23 cm Tube secured with: adhesive tape | | | Trauma: none Tube placement verification: bilateral chest rise and | | | carbon dioxide detection Performing provider: Joaquín Mendez | | | MD Eyad Authorizing provider: Joaquín Castano MD | | | Please see intraoperative grid for any additional medication | | | documentation. | | + + + documented in this encounter Visit Diagnoses Not on filedocumented in this encounter Administered Medications + +--------+ +-------+------+------+ | Medication Order | MAR | Action | Dose | Rate | Site | | | Action | Date | | | | + +--------+ +-------+------+------+ | dexamethasone (PF) 10 mg/mL | Given | 10/05/20 | 10 mg | | | | injection Intravenous, PRN, | | 19 9:27 | | | | | Starting 10/05/19 at 0927, | | AM PST | | | | | Anesthesia Intra-op | | | | | | + +--------+ +-------+------+------+ +---+---+ | | | +---+---+ + +-------+ +--------+---+---+ | fentaNYL (PF) injection PRN, | Given | 10/05/20 | 25 mcg | | | | Starting Thu10/05/19 at 0919, | | 19 9:47 | | | | | Anesthesia Intra-op | | AM PST | | | | + +-------+ +--------+---+---+ +-------+ +--------+---+---+ | Given | 10/05/20 | 25 mcg | | | | | 19 9:43 | | | | | | AM PST | | | | +-------+ +--------+---+---+ | Given | 10/05/20 | 50 mcg | | | | | 19 9:19 | | | | | | AM PST | | | | +-------+ +--------+---+---+ +---+---+ | | | +---+---+ + + + +---+---+---+ | lactated ringers (LR) infusion | Continue | 10/05/20 | | | | | at 10-100 mL/hr, Intravenous, | d by | 19 9:27 | | | | | CONTINUOUS, Starting Thu10/05/19 | Anesthes | AM PST | | | | | at 0830, TKO., Pre-op | ia | | | | | + + + +---+---+---+ +---------+ +--------+-------+---+ | New Bag | 10/05/20 | 1,000 | 100 | | | | 19 8:28 | mLs | mL/hr | | | | AM PST | | | | +---------+ +--------+-------+---+ +---+---+ | | | +---+---+ + +-------+ +-------+---+---+ | lidocaine (PF) 2% injection | Given | 10/05/20 | 40 mg | | | | PRN, Starting 10/05/19 at | | 19 9:19 | | | | | 0919, Anesthesia Intra-op | | AM PST | | | | + +-------+ +-------+---+---+ +---+---+ | | | +---+---+ + +-------+ +------+---+---+ | midazolam (VERSED) 1 mg/mL | Given | 10/05/20 | 2 mg | | | | injection Intravenous, PRN, | | 19 9:13 | | | | | Starting Thu10/05/19 at 0913, | | AM PST | | | | | Anesthesia Intra-op | | | | | | + +-------+ +------+---+---+ +---+---+ | | | +---+---+ + +-------+ +------+---+---+ | ondansetron (ZOFRAN) injection | Given | 10/05/20 | 4 mg | | | | PRN, Starting Thu10/05/19 at | | 19 9:57 | | | | | 0957, Anesthesia Intra-op | | AM PST | | | | + +-------+ +------+---+---+ +---+---+ | | | +---+---+ + +-------+ +--------+---+---+ | propofol (DIPRIVAN) injection | Given | 10/05/20 | 200 mg | | | | Intravenous, PRN, Starting Wed | | 19 9:19 | | | | | 10/05/19 at 0919, Anesthesia | | AM PST | | | | | Intra-op | | | | | | + +-------+ +--------+---+---+ +---+---+ | | | +---+---+ + +---------+ + +-------+---+ | propofol (DIPRIVAN) injection | New Bag | 10/05/20 | 25 | 14.6 | | | Intravenous, CONTINUOUS PRN, | | 19 9:19 | mcg/kg/m | mL/hr | | | Starting 10/05/19 at 0919, | | AM PST | in | | | | Anesthesia Intra-op | | | | | | + +---------+ + +-------+---+ +---+---+ | | | +---+---+ + +-------+ +--------+---+---+ | succinylcholine (ANECTINE) | Given | 10/05/20 | 100 mg | | | | injection Intravenous, PRN, | | 19 9:19 | | | | | Starting 10/05/19 at 0919, | | AM PST | | | | | Anesthesia Intra-op | | | | | | + +-------+ +--------+---+---+ +---+---+ | | | +---+---+ documented in this encounter
--- OUTSIDE RECORDS SUMMARY | ~2020-07-24 | XMS | Encounter Summary ---
Demographics + + + | Address | [address] | | | [place] [address] | + + + | Home Phone | | + + + | Preferred Language | Unknown | + + + | Marital Status | Single | + + + | Sabianism Affiliation | 1013 | + + + | Race | White | + + + | Ethnic Group | Not or | + + + Author + + + | Author | [facility] | | | and [place] | + + + | Organization | [facility] | | | and [...] [place] | | | | | [address] | | + + + + + Care Team Providers + +------+ + | Care Fish Technologist Name | Role | Phone | + [...] | | | | bladder | | [place], | | | | | [address] | | [place] [address] | | | | | (ICD-10-CM) | | Phone: | | | | | - [phone] | | | | | | | (ICD-9-CM) - | | Fax: | | | | | Bladder | | | | | | | neoplasm | | | | | | | Procedures | | | | | | | [place] | | | | | | | [...] + + + + | 10/05/ | Hospital | [facility] | Yaakov Otto | Bladder neoplasm; | | 2019 | Encounter | [facility] | MD [address] | Other stricture of | | | | [address] | [address] | anterior urethra in | | | | [place], [place] | [place], [place] | male | | | | [phone] | [address] | | | | | | | [...] + + + | Blood Pressure | 108/61 | 10/05/2019 1:00 PM | | | | | PST | | + + + + + | Pulse | 65 | 10/05/2019 1:00 PM | | | | | PST | | + + + + + | Temperature | 36.6 C (97.9 F) | 10/05/2019 10:18 AM | | | | | PST | | + + + + + | Respiratory Rate | 18 | 10/05/2019 1:00 PM | | | | | PST | | + + + + + | Oxygen Saturation | 100% | 10/05/2019 1:00 PM | | | | | PST [...] hours and on weekends. Date Last Reviewed: 01/18/[id number] [employer]. [address] [place] [address], [place] [address]. All righ ts reserved. This information is [...] by: Yaakov Otto MD, 10/05/2019 8:[address] [facility] Matthew Shelby MD - 09/22/2019 4:00 PM PSTFormatting of [...] la rge bladder mass. Underwent evaluation/cysto at [facility] and found to have a papillary [...] by mouth nightly. Escalating dose u nder [facility] provider. Last dose 09/20/19- holding it [...] UA, POC Negative Negative, 100 mg/dL Specific [place], UA, POC 1.010 1.001 - 1.030 Blood, [...] have not thoroughly proofread this note, and exhibits manager errors are very likely to occur. CC: Yared Bryant MD documented in this encounter Miscellaneous Notes Op Note - Yaakov Otto MD - 10/05/2019 10:12 AM PSTOperative Note Pt. Name/Age/: Teo Vargas 34 y.o. 1985 [facility]. Record Number: [id number] Date of admission: 10/05/2019 Date of Operation/Procedure: 10/05/2019 Preoperative Diagnosis: Bladder tumor Postoperative Diagnosis: same Surgeon: Yaakov Otto MD [employer] Supervisor(s): none Anesthesia Provider(s): Anesthesiologist: Joaquín Castano MD [...] caliber urethra. Patient was dilated to 28 Urdu. We then placed a 26 Urdu resectoscope into the urethra . This took [...] finding was decided to place a 16 Urdu Martinez catheter. 10 mils was instille d [...] by: Yaakov Otto MD, 10/05/2019 10:[address] [facility] documented in this encounter Plan of [...] | | | | | [place] [address] | | | | | | [phone] | | | | | | | [...] COMMENT: As part of | | | [facility] Quality Improvement Program, this case was | [...] component was | | | performed by [facility], [address] [place] [id number] | | | (Mounted Police: Evelia Schmidt MD; CLIA# [id number]). The | | | professional interpretation was performed by [facility], | | | [facility], [address] [place] [address]. | | | Diagnostician: Ramiro Pickard MD [...] nature of bladder | + + | Other stricture of anterior urethra in male | + + documented in this encounter [...] Shortness of Breath, | | | Starting Thu10/05/19 at 0959, For | | | 1 dose, Recovery/Phase I | | + +---+ | | | + +---+ + +-------+ +--------+---+---+ | ciprofloxacin (CIPRO) tablet | Given | 10/05/20 | 500 mg | | | | 500 mg 500 mg, Oral, ONCE, Thu | | 19 8:27 | | | | | 10/05/19 [...] glucose < 50, | | | Starting Thu10/05/19 at 0810, | | | Repeat in [...] | | | | | | longer, xpzxkb-auu-arqtg use of | | | | | [...] One week or longer, | | | qejjbh-gsm-xlvmo use of at least | | | [...] DBP > 100, Starting | | | 10/05/19 at 0959, Hold if HR < | [...] Intravenous, PRN, Shivering, | | | Starting Thu10/05/19 at 0959, For | | | 2 [...] | | | | PRN, Nausea, Starting Thu10/05/19 | | PM PST | | | [...] | | | | | | Starting 10/05/19 at 1125, | | | | | [...]
--- OUTSIDE RECORDS SUMMARY | ~2020-07-24 | XMS | Encounter Summary ---
Demographics + + + | Address | [address] | | | [place] [address] | + + + | Home Phone | | + + + | Preferred Language | Unknown | + + + | Marital Status | Single | + + + | Buddhist Affiliation | 1013 | + + + | Race | White | + + + | Ethnic Group | Not or | + + + Author + + + | Author | [facility] | | | and [place] | + + + | Organization | [facility] | | | [...] [place] | | | | | [address] | | + + + + + Care Team Providers + +------+ + | Care Pipe Puller Name | Role | Phone | + +------+ + | Yared Bryant MD | PCP | | + +------+ + Reason for Visit +---------+--------+ + | Reason | Onset | Comments | | | Date | | +---------+--------+ + | Results | 01/30/ | | | | 2020 | | +---------+--------+ + Encounter Details +--------+ + + + + | Date | Type | Department | Care Team | Description | +--------+ + + + + | 01/30/ | Telephone | [facility] | Yaakov Otto | Results | | 2019 | | [address] | MD [address] | | | | | [place] | [place] | | | | | [address] | [place] | | | | | [phone] | [address] | | | | | | | [...] this encounter Miscellaneous Notes Telephone Encounter - Treva Sutton RN - 01/31/2020 4:53 PM Christal Otto reviewed images and report of 01/16/20 CT scan done at [facility] and said to let him know " this shows no abnormalities. Thanks" and asked me to let him know. Teo is notified. No qu estions and thanks us for the call. He'll follow up for cystoscopy in July as scheduled . documented in thi s encounter Plan of Treatment +--------+---------+ + + + | Date | Type | Specialty | Care Team | Description | +--------+---------+ + + + | 08/16/ | Office | Urology | Abhijit Horowitz | | 2019 | Visit | | [address] | | | | | | [place] | | | | | | [place] [address] | | | | | | [phone] | | | | | | | | +--------+---------+ + + + documented as of this encounter Visit Diagnoses Not on filedocumented in this encounter
--- OUTSIDE RECORDS SUMMARY | ~2020-07-24 | XMS | Encounter Summary ---
Demographics + + + | Address | [address] | | | [place] [address] | + + + | Home Phone [...] Author + + + | Author | [facility] | | | and [place] | + + + | Organization | [facility] | | | [...] [place] | | | | | [address] | | + + + + + Care Team Providers + +------+ + | Care Sales Account Leader Name | Role | Phone | + +------+ + | Yared Bryant MD | PCP | | + +------+ + Reason for Visit + + + | Reason | Comments | + + + | Follow-up | cystoscopy for bladder cancer | + + + Evaluate & Treat (Routine) +--------+--------+ + + + + | Status | Reason | Specialty | Diagnoses / | Referred By | Referred To | | | | | Procedures | Contact | Contact | +--------+--------+ + + + + | Closed | | Urology | Diagnoses | [place], | Fam, | | | | | Bladder | Yared Scott, | Yaakov Whitley, | | | | | neoplasm | MD [address] | MD [address] | | | | | NEW/ BLADDER | [place] | [address] | | | | | NEOPLASM/ | [place], | [place], | | | | | [place] | [place] [address] | [place] [address] | | | | | Procedures | Phone: | Phone: | | | | | NEW PATIENT | [phone] | [phone] | | | | | | Fax: | Fax: | | | | | | [phone] | [phone] | +--------+--------+ + + + + Encounter Details +--------+---------+ + + + | Date | Type | Department | Care Team | Description | +--------+---------+ + + + | 01/05/ | Office | [facility] | Yaakov Otto | Malignant neoplasm | | 2020 | Visit | [address] | MD [address] | of urinary bladder, | | | | [place], [place] | [address] | unspecified site | | | | [address] | [place], [place] | ([facility]) (Primary Dx) | | | | [phone] | [address] | | | | | | | [...] + + + | Blood Pressure | 110/72 | 01/06/2020 8:53 AM | | | | | PST | | + + + + + | Pulse | 68 | 01/06/2020 8:53 AM | | | | | PST | | + + + + + | Temperature | - | - | | + + + + + | Respiratory Rate | 17 | 01/06/2020 8:53 AM | | | | | PST | | + + + + + | Oxygen Saturation | - | - | | + + + + + | Inhaled Oxygen | - | - | | | Concentration | | | | + + + + + | Weight | 99.4 kg (219 lb 2.2 | 01/06/2020 8:53 AM | | | | oz) | PST | | + + + + + | Height | 180.3 cm (5' 11") | 01/06/2020 8:53 AM | | | | | PST | | + + + + + | Body Mass Index | 30.56 | 01/06/2020 8:53 AM | | | | | PST | | + + + + + documented in this encounter Progress Notes Yaakov Otto MD - 01/06/2020 9:00 AM PSTFormatting of this note might be differ ent from the original. Chief Complaint Patient presents with Follow-up cystoscopy for bladder cancer HPI Teo Vargas Jr. is a 34 y.o. male patient of Yared Bryant MD here today fo r a cystoscopy for bladder cancer. Consent form signed & time out form completed Has had long history of heartburn and during the evaluation had a CT scan which showed a la rge bladder mass. Underwent evaluation/cysto at [facility] and found to have a papillary mass in the bladder Today LUTS: frequency, urgency, occasional dysuria, nocturia 3-4 per night Episodes of gross hematuria, Occasional episodes of urge incontinence Smoking history, 20+ years Also complains of abdominal pain, right sided pelvic pain, testicular pain. Pain is const ant, movement makes the pain worse Cystoscopy Preprocedure timeout was performed. The patient's genitals were then prepped and draped us ual fashion. 10 mL's of viscous lidocaine was instilled per urethra. The scope was then in troduced into the urethra. The anterior urethra showed signs of a urethral stricture that w ith some force of the scope.The posterior urethra was noted for mild lateral lobe hyperplasi a. Upon entering the bladder mota cystoscopy was performed. Bilateral UOs were identified in the normal anatomic position effluxing clear urine.2+ trabeculations were noted. There are no mucosal abnormalities seen. Prior resection site was seen at the left trigone. The scop e was then removed and the patient tolerated the procedure well. Assessment Teo was seen today for follow-up. Diagnoses and all orders for this visit: Malignant neoplasm of urinary bladder, unspecified site (HCC) Plan F/Uin 6 months for surveillance cysto Past Medical History Past Medical History: Diagnosis Date ADHD (attention deficit hyperactivity disorder) Adjustment disorder Bladder cancer (HCC) 09/22/2019 Non-invasive, low grade urothelial carcinoma Bladder tumor 09/22/2019 Hiatal hernia Personality change Scapula fracture 04/2012 Sleep apnea; newly tested, has not received cPAP Past Surgical History Past Surgical History: Procedure Laterality Date APPENDECTOMY 2012 EGD GALLBLADDER SURGERY 2018 HEMORRHOID SURGERY 2014 KNEESCOPY ORTHOPEDIC SURGERY right knee scope in ~ '97 OTHER SURGICAL HISTORY UNLISTED PROCEDURE ARTHROSCOPY - 1995, R knee POLYPECTOMY 2019 SKIN GRAFT 2011 left cervantes SKIN GRAPH 2013 TURBT N/A 10/05/2019 Procedure: CYSTOSCOPY; TRANS URETHRAL RESECTION BLADDER TUMOR; Surgeon: Yaakov almeida MD; Location: [facility] Family History: Family History Problem Relation Age of Onset COPD Mother Prostate cancer Neg Hx Diabetes, NIDDM Other Social History: Social History Socioeconomic History Marital status: Single Spouse name: Not on file Number of children: Not on file Years of education: Not on file Highest education level: Not on file Tobacco Use Smoking status: Current Every Day Smoker Packs/day: 1.00 Types: Cigarettes Smokeless tobacco: Current User Types: Chew Substance and Sexual Activity Alcohol use: Yes Comment: rarely Drug use: Yes Frequency: 35.0 times per week Types: Marijuana Comment: daily use; smoking and ingestion Social History Narrative Merged History Encounter Allergies Allergen Reactions Gabapentin Nausea And Vomiting Septra [Sulfamethoxazole-Trimethoprim] Nausea And Vomiting Tramadol Nausea And Vomiting Vistaril [Hydroxyzine Hcl] Itching Medications: Current Outpatient Medications: amphetamine-dextroamphetamine (ADDERALL) 5 mg tablet, Take 5 mg by mouth 2 times daily ., Disp: , Rfl: ARIPiprazole (ABILIFY) 5 mg tablet, take 1 tablet by mouth every morning, Disp: , Rfl: HYDROcodone-acetaminophen (NORCO) 5-325 mg per tablet, Take 1-2 tablets by mouth every 4 hours as needed., Disp: 30 tablet, Rfl: 0 oxybutynin (DITROPAN-XL) 10 MG 24 hr tablet, take 1 tablet by mouth once daily, Disp: 30 tablet, Rfl: 0 varenicline (CHANTIX) 1 MG tablet, Take 1 mg by mouth 2 times daily., Disp: , Rfl: ROS Objective BP 110/72 | Pulse 68 | Resp 17 | Ht 1.803 m (5' 11") | Wt 99.4 kg (219 lb 2.2 oz) | BM I 30.56 kg/m General Appearance: Alert, cooperative, no distress, [...] There is no significant retroperitoneal adenopathy noted. Results for orders placed or performed in visit on 09/22/19 POCT Urinalysis Result Value Ref Range Color, UA, POC Yellow Yellow, Light Yellow Clarity, UA, POC Clear Glucose, UA, POC Negative Negative Bilirubin, UA, POC Negative Negative Ketones, UA, POC Negative Negative, 100 mg/dL Specific [place], UA, POC 1.010 1.001 - 1.030 Blood, [...] have not thoroughly proofread this note, and business process associate errors are very likely to occur. CC: Yared Bryant MD documented in this encounter Plan of Treatment +--------+---------+ + + + | Date | Type | Specialty | Care Team | Description | +--------+---------+ + + + | 08/16/ | Office | Urology | Abhijit Horowitz | | 2019 | Visit | | [address] | | | | | | [address] | | | | | | [place] [address] | | | | | | [phone] | | | | | | | | +--------+---------+ + + + documented as of this encounter Procedures + +--------+ + + + | Procedure Name | Priori | Date/Time | Associated Diagnosis | Comments | | | ty | | | | + +--------+ + + + | IMAGING REPORT - | | 01/16/2020 | | Results for this | | EXTERNAL SCAN | | 12:00 AM | | procedure are in the | | | | PDT | | results section. | + +--------+ + + + | LABS - EXTERNAL SCAN | | 01/04/2020 | | Results for this | | | | 12:00 AM | | procedure are in the | | | | PST | | results section. | + +--------+ + + + documented in this encounter Results IMAGING REPORT - EXTERNAL SCAN (01/16/2020 12:00 AM PDT) + + + | Narrative | Performed At | + + + | Ordered by an | | | unspecified provider. | | + + + LABS - EXTERNAL SCAN (01/04/2020 12:00 AM PST) + + + | Narrative | Performed At | + + + | Ordered by an | | | unspecified provider. | | + + + documented in this encounter Visit Diagnoses + + | Diagnosis | + + | Malignant neoplasm of urinary bladder, unspecified site (HCC) - Primary | + + documented in this encounter
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
--- OUTSIDE RECORDS SUMMARY | ~2020-07-24 | XMS | Encounter Summary ---
Demographics + + + | Address | [address] | | | [place] [address] | + + + | Home Phone | | + + + | Preferred Language | Unknown | + + + | Marital Status | Single | + + + | Lutheran Affiliation | 1013 | + + + | Race | White | + + + | Ethnic Group | Not or | + + + Author + + + | Author | [facility] | | | and [place] | + + + | Organization | [facility] | | | and [place] | + + + | Address | Unknown | + + + | Phone | Unavailable | + + + Support + + + + + | Name | Relationship | Address | Phone | + + + + + | Teo Vargas | ECON | [address] | | | | | [facility] [place] | | | | | [address] | | + + + + + Care Team Providers + +------+ + | Care Command Post Superintendent Name | Role | Phone | + [...] + + | Closed | Specialty | Orthopedic | Diagnoses | Barrett, | Fausto, | | | Services | Surgery | Acute | Reji Reddy MD | Dallas Scott MD | | | Required | | lateral | [address] | [address] | | | | | meniscus | [address] [place] | [address] [place] | | | | | tear of | [place] | | | | | right knee, | [address] | [address] | | | | | initial | Phone: | Phone: | | | | | encounter | [phone] | [phone] | | | | | | Fax: | Fax: | | | | | | [phone] | [phone] | +--------+ + + + + + Reason for Visit +--------+--------+ + | Reason | Onset | Comments | | | Date | | +--------+--------+ + | Other | 11/10/ | | | | 2017 | | +--------+--------+ + Encounter Details +--------+ + + + + | Date | Type | Department | Care Team | Description | +--------+ + + + + | 11/10/ | Telephone | [facility] | Reji Hyde, | Other | | 2018 | | CARE [address] | [address] | | | | | [place] | [place] | | | | | [address] | [address] | | | | | [phone] | | | +--------+ + + + [...] Encounter - Kacie Estevez Cert MA - 11/11/2017 3:37 PM PSTCalled pt and notifie d him of note and he understood and was also notified that referral will be sent to Dr Henrik sullivan who is elementary education tutor today.pt notified that once referral was approved by insurance and Dr Henrik sullivan's office reviewed that he would be called to schedule. Pt said thank you for the call. elehalie sullivan - Maninder Hermosillo MD - 11/11/2017 12:22 PM PSTPatient does have a tear of the cartilage of his knee. He is going to need to see orthopedic surgery. Please help him make arrangement s for that. Diagnosis is meniscus tear lateral.Electronically signed by MD jose j Boland 11/11/2017 12:23 PM PSTTelephone Encounter - Kacie Estevez Cert MA - 11/11/2017 10:15 AM PSTPt is calling for MRI results- please advise. elephone Simi Gordon 11/10/2017 5:06 PM PSTContact/Caller: Teo Contact Number: [phone] Provider/Nurse: Barrett Reason for Call: Patient calling for test results of recent MRI. Please advise. Last Appointment: 10/28/17 documented in this enco unter Plan of Treatment +--------+---------+ + + + | Date | Type | Specialty | Care Team | Description | +--------+---------+ + + + | 08/16/ | Office | Urology | Abhijit Horowitz | | | 2020 | Visit | | [address] | | | | | | [place] | | | | | | [place] [address] | | | | | | [phone] | | | | | | | | +--------+---------+ + + + + + +--------+ + + | Name | Type | Priori | Associated Diagnoses | Order Schedule | | | | ty | | | + + +--------+ + + | Iman Valerio | Outpatient | Routin | Acute lateral | Ordered: 11/11/2017 | | Clinic Orthopedic - | Referral | e | meniscus tear of | | | AMB Referral | | | right knee, initial | | | | | | encounter | | + + +--------+ + + documented as of this encounter Visit Diagnoses + + | Diagnosis | + + | Acute lateral meniscus tear of right knee, initial encounter - Primary | + + documented in this encounter"
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
--- OUTSIDE RECORDS SUMMARY | ~2020-07-24 | XMS | Encounter Summary ---
Demographics + + + | Address | [address] | | | [place] [address] | + + + | Home Phone | | + + + | Preferred Language | Unknown | + + + | Marital Status | Single | + + + | Pentecostal Affiliation | 1013 | + + + | Race | White | + + + | Ethnic Group | Not or | + + + Author + + + | Author | [facility] | | | and [place] | + + + | Organization | [facility] | | | [...] [place] | | | | | [address] | | + + + + + Care Team Providers + +------+ + | Care Spinner Iron Name | Role | Phone | + +------+ + | No, Physician | PCP | Unavailable | + +------+ + Reason for Visit +--------+ + | Reason | Comments | +--------+ + | Other | | +--------+ + Encounter Details +--------+---------+ + + + | Date | Type | Department | Care Team | Description | +--------+---------+ + + + | 02/15/ | Office | [facility] | Iwona Keyes | Strain of neck | | 2018 | Visit | [facility]CCUPATIONAL [facility] | MD [address] | muscle, initial | | | | [place] [address] [place] | encounter (Primary | | | | [address] [place] | [place] [address] | Dx) | | | | [place], [place] | [phone] | | | | | [address] | | | | | | [phone] | | | +--------+---------+ + + + [...] documented as of this encounter Progress Notes Angelica Scott CMA - 02/11/2018 1:15 PM PDTFORM FEE.PROVIDER-SCANNED DOCUMENT CAN BE FOU ND IN MEDIA documented in this encounter Plan of Treatment +--------+---------+ + + + | Date | Type | Specialty | Care Team | Description | +--------+---------+ + + + | 08/16/ | Office | Urology | Abhijit Horowitz | | | 2019 | Visit | | [address] | | | | | | [place] | | | | | | [place] [address] | | | | | | [phone] | | | | | | | | +--------+---------+ + + + documented as of this encounter Visit Diagnoses + + | Diagnosis | + + | Strain of neck muscle, initial encounter - Primary | + + documented in this encounter"
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
--- OUTSIDE RECORDS SUMMARY | ~2020-07-24 | XMS | Encounter Summary ---
Demographics + + + | Address | [address] | | | [place] [address] | + + + | Home Phone | | + + + | Preferred Language | Unknown | + + + | Marital Status | Single | + + + | Gnosticism Affiliation | 1013 | + + + | Race | White | + + + | Ethnic Group | Not or | + + + Author + + + | Author | [facility] | | | and [place] | + + + | Organization | [facility] | | | [...] [place] | | | | | [address] | | + + + + + Care Team Providers + +------+ + | Care Steam Meter Reader Name | Role | Phone | + [...] | +--------+ + + + + | 12/24/ | Documentati | [facility] | Phillip Portillo | Discharge Without | | 2018 | on | MED CTR THERAPY PT | G, PT [address] | Visit | | | | OP [address] | [address] [place] | | | | | [place] | [address] | | | | | [address] | | | | | | [phone] | | | +--------+ + + + [...] encounter Progress Notes Phillip Portillo, PT - 12/24/2017 9:[address] [facility] PT OP [address] [facility] [address] Physical Therapy Discharge Note This discharge is associated with the evaluation completed on 12-02-17. Date: 12/24/2017 Patient Information Patient Name: Teo Vargas Date of : 1985 Age: 32 y.o. Encounter Diagnoses Code Name Primary? S16.1XXD Strain of neck muscle, subsequent encounter Date of Onset: 06/18/2017 Referring Provider: Iwona Keyes MD Total Number of Visits Completed: 1 Total Cancellations: 0 Total No Shows: 0 Patient decided not to attend therapy. He had waited for follow up visit. Decided to go t o another clinic. At this time we find it necessary to discharge this patient from therapy services. The last progress note or the patients initial evaluation will serve as objective status fo r purposes of discharge. Electronically signed by: Phillip Portillo, PT, 12/24/2017 9:05 Patient Name: Teo Vargas/: 1985/ documented in [...] | | | | | [place] [address] | | | | | | [phone] | | | | | | | | +--------+---------+ + + + documented as of this encounter Visit Diagnoses + + | Diagnosis | + + | Strain of neck muscle, subsequent encounter | + + documented in this encounter"
--- OUTSIDE RECORDS SUMMARY | ~2020-07-24 | XMS | Encounter Summary ---
Demographics + + + | Address | [address] | | | [place] [address] | + + + | Home Phone | | + + + | Preferred Language | Unknown | + + + | Marital Status | Single | + + + | Pentecostalism Affiliation | Unknown | + + + | Race | White | + + + | Ethnic Group | Not or | + + + Author + + + | Author | [facility] | + + + | Organization | [facility] | + + + | Address | Unknown | + + + | Phone | Unavailable | + + + Support + + +---------+ + | Name | Relationship | Address | Phone | + + +---------+ + | Ole Vargas Sr. | ECON | Unknown | | + + +---------+ + Care Team Providers + +------+ + | Care Pie Crust Mixer Name | Role | Phone | + +------+ + | No Pcp Per Patient | PCP | Unavailable | + +------+ + Reason for Visit + +--------+ + | Reason | Onset | Comments | | | Date | | + +--------+ + | Medical Records | 07/19/ | | | Review | 2019 | | + +--------+ + Encounter Details +--------+ + + + + | Date | Type | Department | Care Team | Description | +--------+ + + + + | 07/19/ | Abstract | [facility] | Reji Prakash MD | Medical Records | | 2019 | | Center at [facility] [address] | [address] | Review | | | | [address] [place] | [address] [place], | | | | | [facility] and | [place] [address] | | | | | [place] [address] | [phone] | | | | | [place], [place] | | | | | | [address] | | | | | | [phone] | | | +--------+ + + + [...]
--- OUTSIDE RECORDS SUMMARY | ~2020-07-24 | XMS | Encounter Summary ---
Demographics + + + | Address | [address] | | | [place] [address] | + + + | Home Phone [...] Author + + + | Author | [facility] | | | and [place] | + + + | Organization | [facility] | | | and [...] [place] | | | | | [address] | | + + + + + Care Team Providers + +------+ + | Care Grinder Tender Name | Role | Phone | + +------+ + | Yared Bryant MD | PCP | | + +------+ + Reason for Visit + +--------+ + | Reason | Onset | Comments | | | Date | | + +--------+ + | Bladder Pain | 01/03/ | | | | 2020 | | + +--------+ + Encounter Details +--------+ + + + + | Date | Type | Department | Care Team | Description | +--------+ + + + + | 01/03/ | Telephone | [facility] | Yaakov Otto | Bladder Pain | | 2019 | | [address] | MD Angi [address] | | | | | [place] | [address] | | | | | [address] | [place], [place] | | | | | [phone] | [address] | | | | | | | [...] Telephone Encounter - Treva Sutton RN - 01/05/2020 1:36 PM PSTCalled [facility]. UA was done yesterday. Requested Janet to fax report. UA report received and UA is completely n egative. Left message for Teo "the test you did yesterday came back normal. You can discuss thing s further at your appointment with Dr Otto tomorrow". elephone Encounter - Treva Sutton RN - 01/03 8:48 AM PSTPhilip calls to say he has had bladder pain escalating for the past two mo nths, getting worse the past two weeks. Right now it's a cramping, stabbing pain, 6 or 7 out of 10. No pain with urination, pain more when his bladder if filling and with coughing. The urine is mostly clear yellow, no blood. He's taking oxybutynin. Bowels are loose. Discussed with Dr Otto. Orders for UA [facility] to [facility]. He will try and go today to leave specimen. document ed in this encounter Plan of Treatment +--------+---------+ + + + | Date | Type | Specialty | Care Team | Description | +--------+---------+ + + + | 08/16/ | Office | Urology | Abhijit Horowitz | | 2019 | Visit | | [address] | | | | | | [place] | | | | | | [place] [address] | | | | | | [phone] | | | | | | | | +--------+---------+ + + + documented as of this encounter Visit Diagnoses + + | Diagnosis | + + | Bladder pain - Primary Other symptoms involving urinary system | + + documented in this encounter
--- OUTSIDE RECORDS SUMMARY | ~2020-07-24 | XMS | Encounter Summary ---
Demographics + + + | Address | [address] | | | [place] [address] | + + + | Home Phone | | + + + | Preferred Language | Unknown | + + + | Marital Status | Single | + + + | Evangelical Affiliation | 1013 | + + + [...] | + + + + + | Gian Saleem | ECON | [address] | | | | | [place] | | | | | [address] | | + + + + + Care Team Providers + +------+ + | Care Plywood Matcher Name | Role | Phone | + [...] + + | Closed | Specialty | Oncology | Diagnoses | Johan, | Sacha, | | | Services | | Bladder | Ronaldo | Reji | | | Required | | mass | MD Suhail | MD Suhail | | | | | | [address] | [address] | | | | | | [address] [place] | [place] | | | | | | [place], [place] | [place] | | | | | | [address] | [address] Phone: | | | | | | Phone: | [phone] | | | | | | [phone] | Fax: | | | | | | Fax: | [phone] | | | | | | [phone] | | +--------+ + + + + + Evaluate & Treat (Routine) +--------+ + + + + + | Status | Reason | Specialty | Diagnoses / | Referred By | Referred To | | | | | Procedures | Contact | Contact | +--------+ + + + + + | Closed | Specialty | Urology | Diagnoses | Johan, | Fam, | | | Services | | Bladder | Ronaldo | Yaakov Whitley, | | | Required | | mass | MD Suhail | [address] | | | | | | [address] | [address] | | | | | | [address] [place] | [place], | | | | | | [place] | [place] [address] | | | | | | [address] | Phone: | | | | | | Phone: | [phone] | | | | | | [phone] | Fax: | | | | | | Fax: | [phone] | | | | | | [phone] | | +--------+ + + + + + Reason for Visit + + + | Reason | Comments | + + + | Abdominal Pain | | + + + | Nausea | | + + + | Emesis | | + + + | Urinary Pain | | + + + | Flank Pain | | + + + Encounter Details +--------+ + + + + | Date | Type | Department | Care Team | Description | +--------+ + + + + | 09/08/ | Emergency | [facility] | Ronaldo Prado | Bladder spasm | | 2019 | [facility] | MD Suhail [address] | (Primary Dx); | | | | CENTER [address] | [address] [place] | Bladder mass | | | | [place], [place] | [place] [address] | | | | | [address] | [phone] | | | | | [phone] | | | +--------+ + + + [...] + + + | Blood Pressure | 113/80 | 09/08/2019 4:30 PM | | | | | PST | | + + + + + | Pulse | 73 | 09/08/2019 4:30 PM | | | | | PST | | + + + + + | Temperature | 36.3 C (97.3 F) | 09/08/2019 1:07 PM | | | | | PST | | + + + + + | Respiratory Rate | 16 | 09/08/2019 4:30 PM | | | | | PST | | + + + + + | Oxygen Saturation | 99% | 09/08/2019 4:30 PM | | | | | PST | | + + + + + | Inhaled Oxygen | - | - | | | Concentration | | | | + + + + + | Weight | 95.8 kg (211 lb 3.2 | 09/08/2019 1:07 PM | | | | oz) | PST | | + + + + + | Height | 177.8 cm (5' 10") | 09/08/2019 1:07 PM | | | | | PST | | + + + + + | Body Mass Index | 30.3 | 09/08/2019 1:07 PM | | | | | PST | | + + + + + documented in this encounter Discharge Instructions AttachmentsThe following attachments cannot be sent through Care Everywhere.Abdominal Pain, Adult (Czech)documented in this encounter Medications at Time of [...] + + +---------+ + + | gabapentin | Take 100 mg by mouth | | 0 | 09/05/20 | | | (NEURONTIN) 100 mg | nightly. Escalating | | | 19 | 9 | | capsule | dose under [facility] | | | | | | | provider. Last dose | | | | | | | 09/20/19- holding it | | | | | | | as he's not feeling | | | | | | | well. | | | | | + + + +---------+ + + | | Take 1 tablet by | 28 | 0 | 09/08/20 | | | oxyCODONE-acetaminop | mouth every 6 hours | tablet | | 19 | 9 | | hen (PERCOCET) 5-325 | as needed for up to | | | | | | mg per tablet | 7 days. | | | | | + + + +---------+ + + | | Take 1 tablet by | 7 | 0 | 09/08/20 | | | sennosides-docusate | mouth Daily for 7 | tablet | | 19 | 9 | | sodium (SENOKOT-S) | days. | | | | | | 8.6-50 MG tablet | | | | | | + + + +---------+ + + documented as of this encounter ED Notes Ronaldo Prado MD - 09/09/2019 4:09 PM PSTFormatting of this note might be diff erent from the original. [facility] Gian Saleem Emergency Department Encounter Note [address] [place] [id number] PCP:Yared Bryant MD [phone] CHIEF COMPLAINT: Chief Complaint Patient presents with Abdominal Pain Nausea Emesis Urinary Pain Flank Pain ED Room: ED09 HPI Gian Saleem is a 34 y.o. male who presents to the Emergency Department Patient arrives with c/o bilateral lower abdominal pain, right flank pain, painful urinatio n, and n/v for about 2 weeks. Patient had a scope done about 3 weeks ago at [facility], where zak carrizales found a bladder tumor. Pain started a few days later. Patient has called [facility] MD martin isaac multiple times, including today and always sent to voicemail. He leaves messages and they do not call back. Bilateral low abdominal pain bladder mass being worked up at [facility] cystoscope biopsy no foll ow-up with urology or hematology oncology locally reports lower abdominal pain localized ach ing constant 5 out of 10 persistent gradual onset over the last few months continues to wors en has no home pain medications. Language line educational interpreter made available and used to collect historical details as needed. PAST MEDICAL & SURGICAL HISTORY Patient Active Problem List Diagnosis Date Noted Strain of neck muscle 12/02/2017 Knee strain, right, initial encounter 11/03/2017 Past Surgical History: Procedure Laterality Date ORTHOPEDIC SURGERY right knee scope in CURRENT MEDICATIONS PLASTERER SPRAY GUN Home Medications Medication Sig amphetamine-dextroamphetamine (ADDERALL) 5 mg tablet Take 5 mg by mouth 2 times daily. varenicline (CHANTIX) 1 MG tablet Take 1 mg by mouth 2 times daily. ALLERGIES Allergies Allergen Reactions Septra [Sulfamethoxazole-Trimethoprim] Nausea And Vomiting Tramadol Nausea And Vomiting Vistaril [Hydroxyzine Hcl] Itching FAMILY AND SOCIAL HISTORY History reviewed. No pertinent family history. Social History Socioeconomic History Marital status: Single Spouse name: Not on file Number of children: Not on file Years of education: Not on file Highest education level: Not on file Tobacco Use Smoking status: Current Every Day Smoker Smokeless tobacco: Current User REVIEW OF SYSTEMS As in history of present illness. A 10 system review was otherwise negative. PHYSICAL EXAM VITAL SIGNS: (first vital signs):Temp: 36.3 C (97.3 F) Pulse: 78 Resp: 11 SpO2: 96 % BP : 130/68 Body mass index is 30.3 kg/m. Constitutional: Moderately uncomfortable male patient. HEENT: Atraumatic, PERRL, Oropharynx benign. Neck: Supple with full range of motion. No JVD, no lymphadenopathy, no meningismus and no cervical spine tenderness to palpation or step-off noted. Chest: Good air movement bilaterally. No wheezes, No, rales. Cardiovascular: Normal S1 S2 Abdomen: Soft, nontender., no rebound, guarding, or masses., bowel tones normal. and no pu lsatile masses. Back: Within normal limits, no CVA tenderness and no midline thoracic or lumbar spinal tend erness Extremities: Nontender. No lower extremity edema, no calf asymmetry. Present distal pulse s. Skin: Warm, Dry, No rashes Neurologic: Alert & oriented. No focal deficits, Speech normal, gait not tested Psychiatric: Normal mood, affect and judgement. EKG 12-lead EKG shows LABS Results for orders placed or performed during the hospital encounter of 09/08/19 Urinalysis with Microscopic if Indicated Result Value Ref Range Color Yellow Light Yellow, Yellow, Straw Clarity Clear Clear pH, Urine 6.0 5.0 - 8.0 Specific [place] 1.005 1.001 - 1.030 Protein, Urine Negative Negative Blood, Urine Negative Negative Glucose, Urine Negative Negative Ketones, Urine Negative Negative Bilirubin, Urine Negative Negative Nitrite, Urine Negative Negative Leukocyte Esterase, Urine Negative Negative Urobilinogen, Urine Negative 0.2 mg/dL, 1.0 mg/dL, Negative WBC UA 0-2 0 - 2 /HPF RBC UA 0-2 0 - 2 /HPF SQUAMOUS EPITHELIAL UA 0-2 0 - 2 /LPF BACTERIA UA Negative Negative /HPF CBC with Differential Result Value Ref Range WBC 7.3 4.0 - 11.0 K/uL RBC 5.58 4.30 - 5.70 M/uL Hemoglobin 15.8 13.5 - 18.0 g/dL Hematocrit 47.7 40.0 - 51.0 % MCV 85.5 83.0 - 101.0 fL MCH 28.3 28.0 - 35.0 pg MCHC 33.1 32.0 - 36.0 g/dL RDW-CV 12.7 <15.0 % RDW-SD 39.0 35.1 - 46.3 fL Platelet Count 240 140 - 440 K/uL MPV 10.0 6.5 - 12.4 fL % Neutrophils 60.1 45.0 - 82.0 % % Lymphocytes 32.6 20.0 - 45.0 % % Monocytes 6.4 4.0 - 12.0 % % Eosinophils 0.5 0.0 - 5.0 % % Basophils 0.3 0.0 - 1.0 % % Immature Granulocytes 0.1 0.0 - 0.4 % Absolute Neutrophils 4.39 1.80 - 8.50 K/uL Absolute Lymphocytes 2.38 0.60 - 3.20 K/uL Absolute Monocytes 0.47 0.00 - 1.00 K/uL Absolute Eosinophils 0.04 0.00 - 0.40 K/uL Absolute Basophils 0.02 0.00 - 0.10 K/uL Absolute Immature Granulocytes 0.01 0.00 - 0.03 K/uL % nRBC 0 0 - 2 per 100 WBCs Absolute nRBC 0.00 0.00 - 0.01 K/uL Comprehensive Metabolic Panel Result Value Ref Range Na 140 136 - 145 mmol/L K 4.0 3.4 - 5.1 mmol/L Cl 106 98 - 107 mmol/L CO2 26 20 - 31 mmol/L Anion Gap 8 3 - 16 mmol/L Glucose 89 60 - 106 mg/dL BUN 7 (L) 9 - 23 mg/dL Creatinine 0.93 0.70 - 1.30 mg/dL eGFR if not >60 >=60 mL/min/1.73m2 Calcium 9.6 8.7 - 10.4 mg/dL Albumin 4.8 3.2 - 4.8 g/dL Bilirubin Total 0.5 0.3 - 1.2 mg/dL Total Protein 6.8 5.7 - 8.2 g/dL AST 18 0 - 34 U/L ALT 14 10 - 49 U/L Alkaline Phosphatase 64 46 - 116 U/L Globulin 2.0 (L) 2.1 - 3.8 g/dL Albumin/Globulin Ratio 2.4 (H) 0.8 - 1.9 BUN/Creatinine Ratio 7.5 Lipase Result Value Ref Range Lipase 28 12 - 53 U/L IMAGING STUDIES (X-Rays interpreted by ED Physician) CT AP reveals bladder mass without obstructive findings no other acute pathology identif ied. ED COURSE & MEDICAL DECISION MAKING Pertinent Labs & Imaging studies were reviewed along with EMS notes and custodial record s if applicable. (See chart for details) Medications and Allergy list reviewed. Nurses note and old records were reviewed The patient was seen and examined, The patient was placed on the monitor and monitored. An iv was placed. The patient was given a normal saline bolus. The patient was given iv narcotic pain medication morphine to which the patients pain respo nded. The patient was given Zofran, oxybutynin for their symptoms. Screening labs are ordered and reveal no acute pathology discussed workup and findings with urology service Dr. Otto and referral is placed also placed for [facility] for fu rther management. Symptoms resolved after initial therapy. The patient remained hemodynamically stable without evidence of shock or malperfusion durin g their ED course, at time of discharge patient is sitting/resting comfortably in no apparen t distress. The patient was counseled about their results and workup including all incidenta l findings and the need for out patient follow up to which they verbalized their understandi ng and were provided. The patient was counseled about the importance of medical recommendati ons today and the dangers including harm, , permanent injury, injury, morbidity, and mo rtality of non adherence to the treatment plan. They verbalize their understanding of today' s plan and agree with it. They were counseled that emergency services are available to them / and to return to the ED immediately if symptoms return, persist, change, worsen or new symptoms develop. The patient was given follow up. They were given further strict, thorough, actionable return precautions to which they verbalized their understanding. The patient's q uestions were answered and the patient agreed with the plan. The patient was discharged in g ood stable condition. Last Set of Vital Signs: Temp: 36.3 C (97.3 F) Pulse: 73 Resp: 16 SpO2: 99 % BP: 113/80 FINAL IMPRESSION ICD-10-CM ICD-9-CM 1. Bladder spasm N32.89 596.89 2. Bladder mass N32.89 596.89 Follow-up Information [facility]. Specialty: Emergency Medicine Why: If symptoms worsen Contact information: [address] [facility] [address] Reji Goncalves MD. Call today. Specialty: Medical Oncology Contact information: [address] [facility] [id number] Yaakov Otto MD. Call today. Specialty: Urology Contact information: [place] [address] Discharge Medication List as of 09/08/2019 16:12 START taking these medications Details oxyCODONE-acetaminophen (PERCOCET) 5-325 mg per tablet Take 1 tablet by mouth every 6 hours as needed for up to 7 days.Disp-28 tablet, R-0, Print sennosides-docusate sodium (SENOKOT-S) 8.6-50 MG tablet Take 1 tablet by mouth Daily for 7 days.Disp-7 tablet, R-0, Print Administrations This Visit iohexol (OMNIPAQUE 350) 350 mg/mL injection 90 mL Admin Date 09/08/2019 Action Given Dose 90 mL Route Intravenous Administered By Marquis Mullins, Technologist morphine injection 4 mg Admin Date 09/08/2019 Action Given Dose 4 mg Route Intravenous Administered By Patricia Ortega RN ondansetron (ZOFRAN) injection 4 mg Admin Date 09/08/2019 Action Given Dose 4 mg Route Intravenous Administered By Patricia Ortega RN oxybutynin (DITROPAN) tablet 5 mg Admin Date 09/08/2019 Action Given Dose 5 mg Route Oral Administered By Patricia Ortega RN oxyCODONE-acetaminophen (PERCOCET) 5-325 mg per tablet 1 tablet Admin Date 09/08/2019 Action Given Dose 1 tablet Route Oral Administered By Patricia Ortega RN sodium chloride 0.9% (NS) bolus 1,000 mL Admin Date 09/08/2019 Action New Bag Dose 1000 mL Rate 500 mL/hr Route Intravenous Administered By Patricia Ortega RN Portions of this chart were created with [employer] voice recognition software. Inadvertent so und alike substitutions may be present and are unintentional Ronaldo Prado MD 09/09/19 [id number] Barry Melendrez RN - 09/08/2019 1:12 PM PSTPatient arrives with c/o bilateral lower abdominal pain, right flank pain, painful urination, and n/v for about 2 weeks. Patient had a scope done about 3 weeks ago at [facility], where they found a bladder tumor. Pain started a few days later. Patient has called [facility] office multiple times, including today and always sent to [employer] email. He leaves messages and they do not call back. documented in this encounter Plan of Treatment +--------+---------+ + + + | Date | Type | Specialty | Care Team | Description | +--------+---------+ + + + | 08/16/ | Office | Urology | Abhijit Horowitz | | | 2019 | Visit | | MD [address] | | | | | | [place] | | | | | | [place] [address] | | | | | | [phone] | | | | | | | | +--------+---------+ + + + + +------+--------+ + + | Name | Type | Priori | Associated Diagnoses | Date/Time | | | | ty | | | + +------+--------+ + + | ED INFORMATION | ADIS | Routin | | 09/08/2019 1:07 PM | | EXCHANGE | | e | | PST | + +------+--------+ + + + + +--------+ + + | Name | Type | Priori | Associated Diagnoses | Order Schedule | | | | ty | | | + + +--------+ + + | Urology [facility] - | Outpatient | Routin | Bladder mass | Ordered: 09/08/2019 | | Julianna/Fam | Referral | e | | | + + +--------+ + + | Oncology [facility] - | Outpatient | Routin | Bladder mass | Ordered: 09/08/2019 | | Haider/Sacha/Tai | Referral | e | | | | ackenbush | | | | | + + +--------+ + + documented as of this encounter Procedures + +--------+ + + + | Procedure Name | Priori | Date/Time | Associated Diagnosis | Comments | | | ty | | | | + +--------+ + + + | CT ABDOMEN PELVIS W | STAT | 09/08/2019 | | Results for this | | CONTRAST | | 3:01 PM | | procedure are in the | | | | PST | | results section. | + +--------+ + + + | CBC WITH | STAT | 09/08/2019 | | Results for this | | DIFFERENTIAL | | 2:37 PM | | procedure are in the | | | | PST | | results section. | + +--------+ + + + | LIPASE | STAT | 09/08/2019 | | Results for this | | | | 2:37 PM | | procedure are in the | | | | PST | | results section. | + +--------+ + + + | COMPREHENSIVE | STAT | 09/08/2019 | | Results for this | | METABOLIC PANEL | | 2:37 PM | | procedure are in the | | | | PST | | results section. | + +--------+ + + + | URINALYSIS WITH | Routin | 09/08/2019 | | Results for this | | MICROSCOPIC IF | e | 2:16 PM | | procedure are in the | | INDICATED | | PST | | results section. | + +--------+ + + + | ED INFORMATION | Routin | 09/08/2019 | | | | EXCHANGE | e | 1:07 PM | | | | | | PST | | | + +--------+ + + + +---+--------+ | | | | | Proced | | | ure | | | Note - | | | Uli, | | | Lab In | | | | | | Hlseve | | | n - | | | | | | 2018 | | | 1:08 | | | PM PST | | | | | | Format | | | ting | | | of | | | this | | | note | | | might | | | be | | | differ | | | ent | | | from | | | the | | | origin | | | al.COL | | | LECTIV | | | E?NOTI | | | FICATI | | | ON? | | | | | | 9 | | | 13:06? | | | SALEEM | | | , | | | GIAN | | | | | | M?MRN: | | | | | | [id number] | | | [id number] | | | riteri | | | a Met | | | Care | | | Guidel | | | inesSe | | | curity | | | and | | | Safety | | | No | | | recent | | | | | | Securi | | | ty | | | Events | | | | | | curren | | | tly on | | | | | | fileED | | | Care | | | Guidel | | | nick | | | from | | | [place] | | | ys - | | | [place] | | | laLast | | | | | | Update | | | d: | | | 8/23/1 | | | 9 | | | 10:58 | | | AM | | | Care | | | Coordi | | | nation | | | :Curre | | | ntly | | | engage | | | d in | | | mental | | | | | | health | | | | | | servic | | | es | | | with | | | [place] | | | ys.? | | | Please | | | | | | contac | | | t | | | [place] | | | ys | | | with | | | mental | | | | | | health | | | | | | concer | | | ns.? | | | [place] | | | ton/Mi | | | lton | | | [place] | | | ter:? | | | [phone] | [phone] | | | ? | | | [place] | | | ton:? | | | [phone] | | | [phone] | | | These | | | are | | | guidel | | | nick | | | and | | | the | | | provid | | | er | | | should | | | | | | exerci | | | se | | | clinic | | | al | | | judgme | | | nt | | | when | | | provid | | | ing | | | care.P | | | rescri | | | ption | | | Drug | | | Report | | | (12 | | | Mo.)PD | | | MP | | | query | | | found | | | no | | | report | | | .E.D. | | | Visit | | | Count | | | (12 | | | mo.)Fa | | | cility | | | | | | Visits | | | Low | | | Acuity | | | | | | Provid | | | ence | | | [facility] | | | [facility] | [facility] | | | l | | | Center | | | 1 0 | | | [facility] | | | Hospit | | | al 1 0 | | | Total | | | 2 0 | | | Note: | | | Visits | | | | | | indica | | | te | | | total | | | known | | | visits | | | . | | | Medica | | | id Low | | | | | | Acuity | | | Dx | | | are | | | the | | | number | | | of | | | primar | | | y | | | diagno | | | ses on | | | the | | | Medica | | | id's | | | Low | | | Acuity | | | dx | | | list. | | | | | | Recent | | | | | | Emerge | | | ncy | | | Depart | | | ment | | | Visit | | | [facility] | | | yDate | | | Facili | | | ty | | | City | | | State | | | Type | | | Diagno | | | ses or | | | Chief | | | | | | Compla | | | int | | | Nov 7, | | | 2019 | | | Provid | | | ence | | | [facility] | [facility] | | [place] | | | [place] | | | Emerge | | | ncy | | | Lower | | | ABD | | | Pain | | | Aug | | | 23, | | | 2019 | | | [facility] | | | [facility] | | | [place] | | | [place] | | | Emerge | | | ncy | | | | | | Nicoti | | | ne | | | depend | | | ence, | | | unspec | | | ified, | | | | | | uncomp | | | licate | | | d | | | Postpr | | | oc | | | hemor | | | of a | | | resp | | | sys | | | org | | | fol a | | | resp | | | sys | | | proced | | | ure | | | | | | Allerg | | | y | | | status | | | to | | | sulfon | | | amides | | | | | | status | | | | | | Allerg | | | y | | | status | | | to | | | other | | | antibi | | | otic | | | agents | | | | | | status | | | | | | Other | | | long | | | term | | | (curre | | | nt) | | | drug | | | therap | | | y | | | Hemopt | | | ysis | | | | | | Allerg | | | y | | | status | | | to | | | oth | | | drug/m | | | eds/bi | | | ol | | | subst | | | status | | | | | | Recent | | | | | | Inpati | | | ent | | | Visit | | | [facility] | | | yNo | | | record | | | ed | | | inpati | | | ent | | | visits | | | . Care | | | | | | TeamPr | | | ovider | | | | | | Specia | | | lty | | | Phone | | | Fax | | | Servic | | | e | | | Dates | | | TOWNSL | | | EY, | | | MALCOL | | | M C, | | | MD | | | [employer] | | | al | | | Medici | | | ne | | | Aug | | | 26, | | | 2019 - | | | | | | Curren | | | t | | | Collec | | | tive | | | Portal | | | This | | | patien | | | t has | | | regist | | | ered | | | at the | | | | | | Provid | | | ence | | | St. | | | [facility] | | | Medica | | | l | | | Center | | | | | | Emerge | | | ncy | | | Depart | | | ment | | | For | | | more | | | inform | | | ation | | | visit: | | | | | | https: | | | //secu | | | re.col | | | lectiv | | | emedic | | | al.com | | | /notif | | | y/[phone] | | | [phone] | | | [phone] | | | [phone] | | | [phone] | | | [phone] | | | bf | | | PLEASE | | | NOTE: | | | 1. | | | Any | | | care | | | recomm | | | endati | | | ons | | | and | | | other | | | clinic | | | al | | | inform | | | ation | | | are | | | provid | | | ed as | | | guidel | | | nick | | | or for | | | | | | histor | | | ical | | | purpos | | | es | | | only, | | | and | | | provid | | | ers | | | should | | | | | | exerci | | | se | | | their | | | own | | | clinic | | | al | | | judgme | | | nt | | | when | | | provid | | | ing | | | care. | | | 2. | | | You | | | may | | | only | | | use | | | this | | | inform | | | ation | | | for | | | purpos | | | es of | | | treatm | | | ent, | | | paymen | | | t or | | | health | | | care | | | operat | | | ions | | | activi | | | ties, | | | and | | | subjec | | | t to | | | the | | | limita | | | tions | | | of | | | applic | | | able | | | Collec | | | tive | | | Polici | | | es. | | | 3. | | | You | | | should | | | | | | consul | | | t | | | direct | | | ly | | | with | | | the | | | organi | | | zation | | | that | | | provid | | | ed a | | | care | | | guidel | | | ine or | | | other | | | | | | clinic | | | al | | | histor | | | y with | | | any | | | questi | | | ons | | | about | | | additi | | | onal | | | inform | | | ation | | | or | | | accura | | | cy or | | | comple | | | teness | | | of | | | inform | | | ation | | | provid | | | ed.? | | | 2019 | | | Collec | | | tive | | | Medica | | | l | | | Techn[employer] | | | logies | | | , Inc[employer] | | | - | | | [email or web address] | | | llecti | | | vemedi | | | [email or web address] | | | m | +---+--------+ documented in this encounter Results CT Abdomen Pelvis w Contrast (09/08/2019 3:01 PM PST) + + | Specimen | + + | | + + + + + | Impressions | Performed At | + + + | 1. INTRALUMINAL BLADDER MASS, CONCERNING FOR NEOPLASM. THERE IS | [facility] | | NO ASSOCIATED URETERAL OBSTRUCTION OR VISIBLE ADENOPATHY AT THIS | | | TIME. 2. NON-SPECIFIC SMALL ROUNDED HYPODENSITY IN THE LIVER, | | | DIFFICULT TO FURTHER CHARACTERIZE ON THIS SINGLE PHASE EXAM. | | | CONSIDER SONOGRAPHIC VERSUS MRI FOLLOW-UP. 3. TINY | | | FAT-CONTAINING UMBILICAL AND SUPRAUMBILICAL HERNIAS. Images were | | | provided for interpretation on September 08, 2019 at 1505 hours. | | | Results were phoned to Dr. Prado at 1525 hours. Dictated and | | | Signed by: Tenzin Kumari MD Electronically signed: 09/08/2019 3:33 | | | PM | | + + + + + + | Narrative | Performed At | + + + | ENHANCED CT ABDOMEN AND PELVIS 09/08/2019 3:01 PM CLINICAL | [facility] | | HISTORY: Abdominal pain, acute, nonlocalized ABDOMINAL PAIN NAUSEA | | | EMESIS URINARY PAIN FLANK PAIN COMPARISON: None | | | available TECHNIQUE: Axial images are performed through the | | | abdomen and pelvis following the uneventful intravenous | | | administration of 90 mL Omnipaque 350 contrast. Coronal and | | | sagittal reformations are also performed. ABDOMEN FINDINGS: | | | Imaged lung bases and mediastinum are unremarkable. There is a 10 | | | mm rounded hypodensity in the posterior medial right hepatic lobe, | | | which is difficult to further characterize. Localized | | | hypoattenuation in the anterior left hepatic lobe adjacent to the | | | fissure for the ligamentum teres favors focal fatty infiltration. | | | The gallbladder is surgically absent and no biliary ductal dilation | | | is evident. The spleen, pancreas, adrenal glands and kidneys are | | | unremarkable. No nephroureterolithiasis or hydroureteronephrosis is | | | evident. There is fluid within the nondilated right colon and | | | nondilated small bowel segments in the abdomen. There is no | | | evidence of bowel obstruction or visible inflammation. The appendix | | | appears to be surgically absent. The stomach is mostly | | | decompressed. No free air, ascites, or pathologic lymph node | | | enlargement is evident. A tiny fat-containing supraumbilical hernia | | | is suggested and there is a minimal fat-containing umbilical hernia | | | as well. The abdominal vasculature appears patent and unremarkable. | | | There is early multilevel lumbar facet hypertrophy. Bones and | | | soft tissues are otherwise unremarkable. PELVIS FINDINGS: A | | | rounded but irregularly marginated mildly hyperattenuating mass is | | | suggested in the left posterior bladder lumen, measuring approximately | | | 3.4 cm in diameter. This appears to approximate the ureterovesical | | | junction however there is no associated ureteral dilation. The | | | prostate and seminal vesicles are unremarkable. No free air, free | | | fluid, pathologic lymph node enlargement, or hernia is evident. | | | Tiny sclerotic foci in the proximal femora and lower bony pelvis | | | favor bone islands. Bones and soft tissues are otherwise | | | unremarkable. | | + + + + + | Procedure Note | + + | Uli, Rad Results In - 09/08/2019 3:[address] ABDOMEN AND PELVIS | | 09/08/2019 3:01 PM CLINICAL HISTORY: Abdominal pain, acute, nonlocalizedABDOMINAL | | PAINNAUSEAEMESISURINARY PAINFLANK PAIN COMPARISON: None available TECHNIQUE: Axial | | images are performed through the abdomen and pelvis followingthe uneventful intravenous | | administration of 90 mL Omnipaque 350 contrast. Coronal and sagittal reformations | | are also performed. ABDOMEN FINDINGS: Imaged lung bases and mediastinum are | | unremarkable. There laly 10 mm rounded hypodensity in the posterior medial right hepatic | | lobe, which isdifficult to further characterize. Localized hypoattenuation in the | | anteriorleft hepatic lobe adjacent to the fissure for the ligamentum teres favors | | focalfatty infiltration. The gallbladder is surgically absent and no biliary | | ductaldilation is evident. The spleen, pancreas, adrenal glands and kidneys | | areunremarkable. No nephroureterolithiasis or hydroureteronephrosis is evident.There is | | fluid within the nondilated right colon and nondilated small bowelsegments in the | | abdomen. There is no evidence of bowel obstruction or visibleinflammation. The | | appendix appears to be surgically absent. The stomach ismostly decompressed. No free | | air, ascites, or pathologic lymph node enlargementis evident. A tiny fat-containing | | supraumbilical hernia is suggested and thereis a minimal fat-containing umbilical hernia | | as well. The abdominal vasculatureappears patent and unremarkable. There is early | | multilevel lumbar facethypertrophy. Bones and soft tissues are otherwise unremarkable. | | PELVIS FINDINGS: A rounded but irregularly marginated mildly hyperattenuatingmass is | | suggested in the left posterior bladder lumen, measuring approximately3.4 cm in | | diameter. This appears to approximate the ureterovesical junctionhowever there is no | | associated ureteral dilation. The prostate and seminalvesicles are unremarkable. No | | free air, free fluid, pathologic lymph nodeenlargement, or hernia is evident. Tiny | | sclerotic foci in the proximal femoraand lower bony pelvis favor bone islands. Bones | | and soft tissues are otherwiseunremarkable. IMPRESSION: 1. INTRALUMINAL BLADDER MASS, | | CONCERNING FOR NEOPLASM. THERE IS NO ASSOCIATEDURETERAL OBSTRUCTION OR VISIBLE | | ADENOPATHY AT THIS TIME.2. NON-SPECIFIC SMALL ROUNDED HYPODENSITY IN THE LIVER, | | DIFFICULT TO FURTHERCHARACTERIZE ON THIS SINGLE PHASE EXAM. CONSIDER SONOGRAPHIC VERSUS | | MRIFOLLOW-UP.3. TINY FAT-CONTAINING UMBILICAL AND SUPRAUMBILICAL HERNIAS.Images were | | provided for interpretation on September 08, 2019 at 1505 hours. Results were phoned to | | Dr. Prado at 1525 hours.Dictated and Signed by: Tenzin Kumari MD Electronically | | signed: 09/08/2019 3:33 PM | |mass is suggested in the left posterior bladder lumen, measuring approximately | |3.4 cm in diameter. This appears to approximate the ureterovesical junction | |however there is no associated ureteral dilation. The prostate and seminal | |vesicles are unremarkable. No free air, free fluid, pathologic lymph node | |enlargement, or hernia is evident. Tiny sclerotic foci in the proximal femora | |and lower bony pelvis favor bone islands. Bones and soft tissues are otherwise | |unremarkable. | | | |IMPRESSION: | |1. INTRALUMINAL BLADDER MASS, CONCERNING FOR NEOPLASM. THERE IS NO ASSOCIATED | |URETERAL OBSTRUCTION OR VISIBLE ADENOPATHY AT THIS TIME. | | | |2. NON-SPECIFIC SMALL ROUNDED HYPODENSITY IN THE LIVER, DIFFICULT TO FURTHER | |CHARACTERIZE ON THIS SINGLE PHASE EXAM. CONSIDER SONOGRAPHIC VERSUS MRI | |FOLLOW-UP. | | | |3. TINY FAT-CONTAINING UMBILICAL AND SUPRAUMBILICAL HERNIAS. | | | |Images were provided for interpretation on September 08, 2019 at 1505 hours. | |Results were phoned to Dr. Prado at 1525 hours. | | | |Dictated and Signed by: Tenzin Kumari MD | | Electronically signed: 09/08/2019 3:33 PM | + + + +---------+ + + | Performing | Address | City/State/Zipcode | Phone Number | | Organization | | | | + +---------+ + + | [facility] | | | | + +---------+ + + Lipase (09/08/2019 2:37 PM PST) + + + + + + | Component | Value | Ref Range | Performed | Pathologist | | | | | At | Signature | + + + + + + | Lipase | 28Comment: New method in | 12 - 53 U/L | [facility] | | | | use as of December 29 | | [facility] | | | | 2018. Check reference | | MEDICAL | | | | range for changes.Some | | CENTER - | | | | analytes show | | LABORATORY | | | | significant variation | | | | | | from the previous | | | | | | method.It may be | | | | | | necessary to set a new | | | | | | baseline for this | | | | | | analyte. | | | | + + + + + + + + | Specimen | + + | Blood | + + + + + + + | Performing | Address | City/State/Zipcode | Phone Number | | Organization | | | | + + + + + | [facility] | [address] | [place] | [phone] | | [facility] | | [address] | | | - LABORATORY | | | | + + + + + Comprehensive Metabolic Panel (09/08/2019 2:37 PM PST) + + + + + + | Component | Value | Ref Range | Performed | Pathologist | | | | | At | Signature | + + + + + + | Na | 140 | 136 - 145 | [facility] | | | | | mmol/L | [facility] | | | | | | MEDICAL | | | | | | CENTER - | | | | | | LABORATORY | | + + + + + + | K | 4.0 | 3.4 - 5.1 | [facility] | | | | | mmol/L | [facility] | | | | | | MEDICAL | | | | | | CENTER - | | | | | | LABORATORY | | + + + + + + | Cl | 106 | 98 - 107 mmol/L | [facility] | | | | | | [facility] | | | | | | MEDICAL | | | | | | CENTER - | | | | | | LABORATORY | | + + + + + + | CO2 | 26 | 20 - 31 mmol/L | [facility] | | | | | | [facility] | | | | | | MEDICAL | | | | | | CENTER - | | | | | | LABORATORY | | + + + + + + | Anion Gap | 8 | 3 - 16 mmol/L | [facility] | | | | | | [facility] | | | | | | MEDICAL | | | | | | CENTER - | | | | | | LABORATORY | | + + + + + + | Glucose | 89 | 60 - 106 mg/dL | [facility] | | | | | | [facility] | | | | | | MEDICAL | | | | | | CENTER - | | | | | | LABORATORY | | + + + + + + | BUN | 7 (L) | 9 - 23 mg/dL | [facility] | | | | | | [facility] | | | | | | MEDICAL | | | | | | CENTER - | | | | | | LABORATORY | | + + + + + + | Creatinine | 0.93 | 0.70 - 1.30 | [facility] | | | | | mg/dL | [facility] | | | | | | MEDICAL | | | | | | CENTER - | | | | | | LABORATORY | | + + + + + + | eGFR, | >60Comment: GLOMERULAR | >=60 | [facility] | | | non- | FILTRATION | mL/min/1.73m2 | [facility] | | | Indian | RATE,ESTIMATED | | MEDICAL | | | | mL/min/1.99k4Oyvt than | | CENTER - | | | | 60 Chronic kidney | | LABORATORY | | | | disease,if found over a | | | | | | 3-month period.Less than | | | | | | 15 Kidney failureFor | | | | | | | | | | | | Americans,multiply the | | | | | | calculated GFR by 1.21. | | | | | | | | | | + + + + + + | Calcium | 9.6 | 8.7 - 10.4 | [facility] | | | | | mg/dL | [facility] | | | | | | MEDICAL | | | | | | CENTER - | | | | | | LABORATORY | | + + + + + + | Albumin | 4.8 | 3.2 - 4.8 g/dL | [facility] | | | | | | [facility] | | | | | | MEDICAL | | | | | | CENTER - | | | | | | LABORATORY | | + + + + + + | Bilirubin | 0.5 | 0.3 - 1.2 mg/dL | [facility] | | | Total | | | [facility] | | | | | | MEDICAL | | | | | | CENTER - | | | | | | LABORATORY | | + + + + + + | Total | 6.8 | 5.7 - 8.2 g/dL | [facility] | | | Protein | | | [facility] | | | | | | MEDICAL | | | | | | CENTER - | | | | | | LABORATORY | | + + + + + + | AST | 18 | 0 - 34 U/L | [facility] | | | | | | [facility] | | | | | | MEDICAL | | | | | | CENTER - | | | | | | LABORATORY | | + + + + + + | ALT | 14 | 10 - 49 U/L | [facility] | | | | | | [facility] | | | | | | MEDICAL | | | | | | CENTER - | | | | | | LABORATORY | | + + + + + + | Alkaline | 64 | 46 - 116 U/L | [facility] | | | Phosphatase | | | [facility] | | | | | | MEDICAL | | | | | | CENTER - | | | | | | LABORATORY | | + + + + + + | Globulin | 2.0 (L) | 2.1 - 3.8 g/dL | [facility] | | | | | | [facility] | | | | | | MEDICAL | | | | | | CENTER - | | | | | | LABORATORY | | + + + + + + | Albumin/Monica | 2.4 (H) | 0.8 - 1.9 | [facility] | | | bulin Ratio | | | [facility] | | | | | | MEDICAL | | | | | | CENTER - | | | | | | LABORATORY | | + + + + + + | BUN/Creatin | 7.5 | | [facility] | | | ine Ratio | | | [facility] | | | | | | MEDICAL | | | | | | CENTER - | | | | | | LABORATORY | | + + + + + + + + | Specimen | + + | Blood | + + + + + + + | Performing | Address | City/State/Zipcode | Phone Number | | Organization | | | | + + + + + | [facility] | [address] | [place], [place] | [phone] | | [facility] | | [address] | | | - LABORATORY | | | | + + + + + CBC with Differential (09/08/2019 2:37 PM PST) + +-------+ + + + | Component | Value | Ref Range | Performed | Pathologist | | | | | At | Signature | + +-------+ + + + | White Blood | 7.3 | 4.0 - 11.0 K/uL | [facility] | | | Cells | | | [facility] | | | | | | MEDICAL | | | | | | CENTER - | | | | | | LABORATORY | | + +-------+ + + + | Red Blood | 5.58 | 4.30 - 5.70 | [facility] | | | Cells | | M/uL | [facility] | | | | | | MEDICAL | | | | | | CENTER - | | | | | | LABORATORY | | + +-------+ + + + | Hemoglobin | 15.8 | 13.5 - 18.0 | [facility] | | | | | g/dL | [facility] | | | | | | [facility]ICAL | | | | | | CENTER - | | | | | | LABORATORY | | + +-------+ + + + | Hematocrit | 47.7 | 40.0 - 51.0 % | [facility] | | | | | | [facility] | | | | | | MEDICAL | | | | | | CENTER - | | | | | | LABORATORY | | + +-------+ + + + | MCV | 85.5 | 83.0 - 101.0 fL | [facility] | | | | | | [facility] | | | | | | MEDICAL | | | | | | CENTER - | | | | | | LABORATORY | | + +-------+ + + + | MCH | 28.3 | 28.0 - 35.0 pg | [facility] | | | | | | [facility] | | | | | | MEDICAL | | | | | | CENTER - | | | | | | LABORATORY | | + +-------+ + + + | MCHC | 33.1 | 32.0 - 36.0 | [facility] | | | | | g/dL | [facility] | | | | | | MEDICAL | | | | | | CENTER - | | | | | | LABORATORY | | + +-------+ + + + | RDW-CV | 12.7 | <15.0 % | [facility] | | | | | | [facility] | | | | | | MEDICAL | | | | | | CENTER - | | | | | | LABORATORY | | + +-------+ + + + | RDW-SD | 39.0 | 35.1 - 46.3 fL | [facility] | | | | | | [facility] | | | | | | MEDICAL | | | | | | CENTER - | | | | | | LABORATORY | | + +-------+ + + + | Platelet | 240 | 140 - 440 K/uL | [facility] | | | Count | | | [facility] | | | | | | MEDICAL | | | | | | CENTER - | | | | | | LABORATORY | | + +-------+ + + + | MPV | 10.0 | 6.5 - 12.4 fL | [facility] | | | | | | [facility] | | | | | | MEDICAL | | | | | | CENTER - | | | | | | LABORATORY | | + +-------+ + + + | % | 60.1 | 45.0 - 82.0 % | [facility] | | | Neutrophils | | | [facility] | | | | | | MEDICAL | | | | | | CENTER - | | | | | | LABORATORY | | + +-------+ + + + | % | 32.6 | 20.0 - 45.0 % | [facility] | | | Lymphocytes | | | [facility] | | | | | | MEDICAL | | | | | | CENTER - | | | | | | LABORATORY | | + +-------+ + + + | % Monocytes | 6.4 | 4.0 - 12.0 % | [facility] | | | | | | [facility] | | | | | | MEDICAL | | | | | | CENTER - | | | | | | LABORATORY | | + +-------+ + + + | % | 0.5 | 0.0 - 5.0 % | [facility] | | | Eosinophils | | | [facility] | | | | | | MEDICAL | | | | | | CENTER - | | | | | | LABORATORY | | + +-------+ + + + | % Basophils | 0.3 | 0.0 - 1.0 % | [facility] | | | | | | [facility] | | | | | | MEDICAL | | | | | | CENTER - | | | | | | LABORATORY | | + +-------+ + + + | % Immature | 0.1 | 0.0 - 0.4 % | [facility] | | | Granulocyte | | | [facility] | | | s | | | MEDICAL | | | | | | CENTER - | | | | | | LABORATORY | | + +-------+ + + + | Absolute | 4.39 | 1.80 - 8.50 | [facility] | | | Neutrophils | | K/uL | [facility] | | | | | | MEDICAL | | | | | | CENTER - | | | | | | LABORATORY | | + +-------+ + + + | Absolute | 2.38 | 0.60 - 3.20 | [facility] | | | Lymphocytes | | K/uL | [facility] | | | | | | MEDICAL | | | | | | CENTER - | | | | | | LABORATORY | | + +-------+ + + + | Absolute | 0.47 | 0.00 - 1.00 | [facility] | | | Monocytes | | K/uL | [facility] | | | | | | MEDICAL | | | | | | CENTER - | | | | | | LABORATORY | | + +-------+ + + + | Absolute | 0.04 | 0.00 - 0.40 | [facility] | | | Eosinophils | | K/uL | [facility] | | | | | | MEDICAL | | | | | | CENTER - | | | | | | LABORATORY | | + +-------+ + + + | Absolute | 0.02 | 0.00 - 0.10 | [facility] | | | Basophils | | K/uL | [facility] | | | | | | MEDICAL | | | | | | CENTER - | | | | | | LABORATORY | | + +-------+ + + + | Absolute | 0.01 | 0.00 - 0.03 | [facility] | | | Immature | | K/uL | [facility] | | | Granulocyte | | | MEDICAL | | | s | | | CENTER - | | | | | | LABORATORY | | + +-------+ + + + | % nRBC | 0 | 0 - 2 per 100 | [facility] | | | | | WBCs | [facility] | | | | | | MEDICAL | | | | | | CENTER - | | | | | | LABORATORY | | + +-------+ + + + | Absolute | 0.00 | 0.00 - 0.01 | [facility] | | | nRBC | | K/uL | [facility] | | | | | | MEDICAL | | | | | | CENTER - | | | | | | LABORATORY | | + +-------+ + + + + + | Specimen | + + | Blood | + + + + + + + | Performing | Address | City/State/Zipcode | Phone Number | | Organization | | | | + + + + + | [facility] | [address] | [place] | [phone] | | [facility] | | [address] | | | - LABORATORY | | | | + + + + + Urinalysis with Microscopic if Indicated (09/08/2019 2:16 PM PST) + + + + + + | Component | Value | Ref Range | Performed | Pathologist | | | | | At | Signature | + + + + + + | Color, | Yellow | Light Yellow, | [facility] | | | Urine | | Yellow, Straw | [facility] | | | | | | MEDICAL | | | | | | CENTER - | | | | | | LABORATORY | | + + + + + + | Clarity, | Clear | Clear | [facility] | | | Urine | | | [facility] | | | | | | MEDICAL | | | | | | CENTER - | | | | | | LABORATORY | | + + + + + + | pH, Urine | 6.0 | 5.0 - 8.0 | [facility] | | | | | | [facility] | | | | | | MEDICAL | | | | | | CENTER - | | | | | | LABORATORY | | + + + + + + | Specific | 1.005 | 1.001 - 1.030 | [facility] | | | [place], | | | [facility] | | | Urine | | | MEDICAL | | | | | | CENTER - | | | | | | LABORATORY | | + + + + + + | Protein, | Negative | Negative | [facility] | | | Urine | | | [facility] | | | | | | MEDICAL | | | | | | CENTER - | | | | | | LABORATORY | | + + + + + + | Blood, | Negative | Negative | [facility] | | | Urine | | | [facility] | | | | | | MEDICAL | | | | | | CENTER - | | | | | | LABORATORY | | + + + + + + | Glucose, | Negative | Negative | [facility] | | | Urine | | | [facility] | | | | | | MEDICAL | | | | | | CENTER - | | | | | | LABORATORY | | + + + + + + | Ketones, | Negative | Negative | [facility] | | | Urine | | | [facility] | | | | | | MEDICAL | | | | | | CENTER - | | | | | | LABORATORY | | + + + + + + | Bilirubin, | Negative | Negative | [facility] | | | Urine | | | [facility] | | | | | | MEDICAL | | | | | | CENTER - | | | | | | LABORATORY | | + + + + + + | Nitrite, | Negative | Negative | [facility] | | | Urine | | | [facility] | | | | | | MEDICAL | | | | | | CENTER - | | | | | | LABORATORY | | + + + + + + | Leukocyte | Negative | Negative | [facility] | | | Esterase, | | | [facility] | | | Urine | | | MEDICAL | | | | | | CENTER - | | | | | | LABORATORY | | + + + + + + | Urobilinoge | Negative | 0.2 mg/dL, 1.0 | [facility] | | | n, Urine | | mg/dL, Negative | [facility] | | | | | | MEDICAL | | | | | | CENTER - | | | | | | LABORATORY | | + + + + + + | White Blood | 0-2 | 0 - 2 /HPF | [facility] | | | Cells, | | | [facility] | | | Urine | | | MEDICAL | | | | | | CENTER - | | | | | | LABORATORY | | + + + + + + | Red Blood | 0-2 | 0 - 2 /HPF | [facility] | | | Cells, | | | [facility] | | | Urine | | | MEDICAL | | | | | | CENTER - | | | | | | LABORATORY | | + + + + + + | Squamous | 0-2 | 0 - 2 /LPF | [facility] | | | Epithelial | | | [facility] | | | Cells, | | | MEDICAL | | | Urine | | | CENTER - | | | | | | LABORATORY | | + + + + + + | Bacteria, | Negative | Negative /HPF | [facility] | | | Urine | | | [facility] | | | | | | MEDICAL | | | | | | CENTER - | | | | | | LABORATORY | | + + + + + + + + | Specimen | + + | Urine - Urine | | specimen obtained by | | clean catch | | procedure (specimen) | + + + + + + + | Performing | Address | City/State/Zipcode | Phone Number | | Organization | | | | + + + + + | [facility] 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 | + + documented in this encounter Administered Medications + +--------+ +--------+------+------+ | Medication Order | MAR | Action | Dose | Rate | Site | | | Action | Date | | | | + +--------+ +--------+------+------+ | iohexol (OMNIPAQUE 350) 350 | Given | 09/08/20 | 90 mLs | | | | mg/mL injection 90 mL 90 mL, | | 19 3:01 | | | | | Intravenous, ONCE PRN, Other, for | | PM PST | | | | | imaging CT study, Starting Kristin | | | | | | | 09/08/19 at 1501, For 1 dose, | | | | | | | Radiology | | | | | | + +--------+ +--------+------+------+ +---+---+ | | | +---+---+ + +-------+ +------+---+---+ | morphine injection 4 mg 4 mg, | Given | 09/08/20 | 4 mg | | | | Intravenous, ONCE, Kristin 09/08/19 at | | 19 2:42 | | | | | 1425, For 1 dose | | PM PST | | | | + +-------+ +------+---+---+ +---+---+ | | | +---+---+ + +-------+ +------+---+---+ | ondansetron (ZOFRAN) injection | Given | 09/08/20 | 4 mg | | | | 4 mg 4 mg, Intravenous, ONCE, | | 19 2:41 | | | | | Kristin 09/08/19 at 1425, For 1 dose | | PM PST | | | | + +-------+ +------+---+---+ +---+---+ | | | +---+---+ + +-------+ +------+---+---+ | oxybutynin (DITROPAN) tablet 5 | Given | 09/08/20 | 5 mg | | | | mg 5 mg, Oral, ONCE, Kristin 09/08/19 | | 19 4:28 | | | | | at 1605, For 1 dose, Give on an | | PM PST | | | | | empty stomach., | | | | | | + +-------+ +------+---+---+ +---+---+ | | | +---+---+ + +-------+ + +---+---+ | oxyCODONE-acetaminophen | Given | 09/08/20 | 1 tablet | | | | (PERCOCET) 5-325 mg per tablet 1 | | 19 4:28 | | | | | tablet 1 tablet, Oral, ONCE, Kristin | | PM PST | | | | | 09/08/19 at 1605, For 1 dose | | | | | | + +-------+ + +---+---+ +---+---+ | | | +---+---+ + +---------+ +--------+-------+---+ | sodium chloride 0.9% (NS) bolus | New Bag | 09/08/20 | 1,000 | 500 | | | 1,000 mL 1,000 mL, Intravenous, | | 19 2:40 | mLs | mL/hr | | | Administer over 2 Hours, ONCE, | | PM PST | | | | | Kristin 09/08/19 at 1425, For 1 dose | | | | | | + +---------+ +--------+-------+---+ +---+---+ | | | +---+---+ documented in this encounter
--- OUTSIDE RECORDS SUMMARY | ~2020-07-24 | XMS | Encounter Summary ---
Demographics + + + | Address | [address] | | | [place] [address] | + + + | Home Phone | | + + + | Preferred Language | Unknown | + + + | Marital Status | Single | + + + | Tenriism Affiliation | 1013 | + + + | Race | White | + + + | Ethnic Group | Not or | + + + Author + + + | Author | [facility] | | | and [place] | + + + | Organization | [facility] | | | [...] [place] | | | | | [address] | | + + + + + Care Team Providers + +------+ + | Care Inner Tube Cutter Name | Role | Phone | + [...] Description | +--------+--------+ + + + | 01/26/ | Refill | [facility] | Yaakov Otto | Medication Refill | | 2019 | | [address] | MD Angi [address] | | | | | [place] | [place] | | | | | [address] | [place], [place] | | | | | [phone] | [address] | | | | | | | [...] | | | | | [place] [address] | | | | | | [phone] | | | | | | | | +--------+---------+ + + + documented as of this encounter Visit Diagnoses Not on filedocumented in this encounter"
--- OUTSIDE RECORDS SUMMARY | ~2020-07-24 | XMS | Encounter Summary ---
Demographics + + + | Address | [address] | | | [place] [address] | + + + | Home Phone | | + + + | Preferred Language | Unknown | + + + | Marital Status | Single | + + + | Roman Catholic Affiliation | Unknown | + + + [...] Team Providers + +------+ + | Care Drilling Rig Operator Name | Role | Phone | [...] | | | | c hernia | [facility] | [place] for | | | | | without | Rd | Health and | | | | | obstruction | [place], [place] | Healing, | | | | | and without | [address] | [address], | | | | | gangrene | Phone: | 3rd Floor | | | | | Procedures | [phone] | [place], [place] | | | | | CT CHEST, | Fax: | [address] | | | | | ABDOMEN AND | [phone] | Phone: | | | | | PELVIS W IV | | [phone] | | | | | [place] | | Fax: | | | | | CAT SCAN OF | | [phone] | | | | | CHEST | | | | | | | [place] | | | | | | | [...] + + + + | 06/08/ | Security Assessor | Digestive [facility] | Reji Prakash MD | Diaphragmatic hernia | | 2019 | | [place] [facility] [address] | [address] | without obstruction | | | | [address] [place] | [place], | and without | | | | for Health and | [place] [address] | gangrene (Primary | | | | Healing, [address] | [phone] | Dx) | | | | [place], [place] | | | | | | [address] | | | | | | [phone] | | | +--------+ + + + [...] documented as of this encounter Miscellaneous Notes Addendum Note - Broderick Liu RN - 06/21/2019 2:51 PM PDT Addended by: BRODERICK LIU on: 06/21/2019 02:51 PM Modules accepted: Orders documented in this encounter Plan of Treatment Not on filedocumented as of this encounter Results CT CHEST, ABDOMEN AND [...] Note | + + | Service Account, [employer] [facility] In Interface - 07/22/2019 5:57 PM [...] Diaphragmatic hernia without obstruction and without gangrene - Primary | + + documented in this encounter"
--- OUTSIDE RECORDS SUMMARY | ~2020-07-24 | XMS | Encounter Summary ---
Demographics + + + | Address | [address] | | | [place] [address] | + + + | Home Phone | | + + + | Preferred Language | Unknown | + + + | Marital Status | Single | + + + | Christian Affiliation | Unknown | + + + | Race | White | + + + | Ethnic Group | Not or | + + + Author + + + | Organization | Unknown | + + + | Address | Unknown | + + + | Phone | Unavailable | + + + Support + + +---------+ + | Name | Relationship | Address | Phone | + + +---------+ + | Ole Vargas Sr. | ECON | Unknown | | + + +---------+ + Care Team Providers + +------+ + | Care Branch Rental Manager Name | Role | Phone | + +------+ + | Yared Bryant MD | PCP | | + +------+ + Encounter Details +--------+--------+ + + + | Date | Type | Department | Care Team | Description | +--------+--------+ + + + | 08/22/ | Travel | | | | | 2019 | | | | | +--------+--------+ + + + Social [...]
--- OUTSIDE RECORDS SUMMARY | ~2020-07-24 | XMS | Encounter Summary ---
Demographics + + + | Address | [address] | | | [place] [address] | + + + | Home Phone | | + + + | Preferred Language | Unknown | + + + | Marital Status | Single | + + + | Methodist Affiliation | 1013 | + + + | Race | White | + + + | Ethnic Group | Not or | + + + Author + + + | Author | [facility] | | | and [place] | + + + | Organization | [facility] | | | and [place] | + + + | Address | Unknown | + + + | Phone | Unavailable | + + + Support + + + + + | Name | Relationship | Address | Phone | + + + + + | Teo Vargas | ECON | [address] | | | | | [place] | | | | | [address] | | + + + + + Care Team Providers + +------+ + | Care Bath Steward Name | Role | Phone | + +------+ + PCP | Unavailable | + +------+ + Encounter Details +--------+ + + + + | Date | Type | Department | Care Team | Description | +--------+ + + + + | 10/09/ | [facility] | [facility] | | | | 2001 | Encounter | [facility] | | | | | | CENTER [address] | | | | | | [place] | | | | | | [address] | | | | | | [phone] | | | +--------+ + + + [...] | | | | | [place] [address] | | | | | | [phone] | | | | | | | | +--------+---------+ + + + documented as of this encounter Visit Diagnoses Not on filedocumented in this encounter"
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
--- OUTSIDE RECORDS SUMMARY | ~2020-07-24 | XMS | Encounter Summary ---
Demographics + + + | Address | [address] | | | [place] [address] | + + + | Home Phone [...] Team Providers + +------+ + | Care Dental Patient Coordinator Name | Role | Phone | + +------+ + | No Pcp Per Patient | PCP | Unavailable | + +------+ + Encounter Details +--------+--------+ + + + | Date | Type | Department | Care Team | Description | +--------+--------+ + + + | 07/22/ | Travel | | | | | [...]
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
--- OUTSIDE RECORDS SUMMARY | ~2020-07-24 | XMS | Encounter Summary ---
Demographics + + + | Address | [address] | | | [place] [address] | + + + | Home Phone [...] [address] | | | | | [facility] | | | | | [address] | | + + + + + Care Team Providers + +------+ + | Care Road Mender Name | Role | Phone | + [...] | neck muscle, | MD Miranda | [address] | | | | n | initial | [address] | [place], | | | | | encounter | [address] | [place] [address] | | | | | Place of | [place], | Phone: | | | | | occurrence, | [place] [address] | [phone] | | | | | industrial | Phone: | Fax: | | | | | places and | [phone] | [phone] | | | | | premises | Fax: | | | | | | [id number] | [phone] | | | | | | .69 [...] Description | +--------+---------+ + + + | 10/22/ | Office | [facility] | [place] | Strain of neck | | 2017 | Visit | [facility] | MD [address] | muscle, initial | | | | [place] [address] [place] | encounter (Primary | | | | [address] [place] | [place] [address] | Dx); Place of | | | | [facility] [place] | [phone] | occurrence, | | | | [address] | | industrial places | | | | [phone] | | and premises | +--------+---------+ + [...] + + + | Blood Pressure | 125/75 | 10/22/2017 9:41 AM | | | | | PST | | + + + + + | Pulse | 71 | 10/22/2017 9:41 AM | | | | | PST | | + + + + + | Temperature | 36.1 C (96.9 F) | 10/22/2017 9:41 AM | | | | | PST [...] + | Weight | 108 kg (238 lb) | 10/22/2017 9:41 AM | | | | | PST | | + + + + + | Height | 177.8 cm (5' 10") | 10/22/2017 9:41 AM | | | | | PST | | + + + + + | Body Mass Index | 34.15 | 10/22/2017 9:41 AM | | | | | PST | | + + + + + documented in this encounter Progress Notes I[place]ona [place] MD - 10/22/2017 10:00 AM PSTEmployer: [employer] Guarantor: [employer] Date of injury: 06/18/17 Claim number: [id number] Chief complaint: Transfer of care, neck injury Subjective: 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 He states on the date of injury he was lifting a car door, attempted to lower it, it was approximately 1 foot off the ground wh en he felt pain and discomfort in the right posterior neck. He also felt pain between the s houlder blades. No radiation of pain into the arms or hands and no associated numbness, tin gling, or weakness. Prior to claims initiation he sought care with a local chiropractor, di d not find this to be helpful and sought evaluation with his previous provider. He was refe rred to physical therapy, did complete 6 weeks of physical therapy and found it to be helpabraham arellano. This was completed approximately one month ago, his provider has since retired and he is needing to reestablish with a different provider for AP services and continued treatment. He states since discontinuing physical therapy he notes increased tightness in the muscles o f the right posterior neck and upper back, worse upon awakening in the morning, better as day goes on, then at the end of a long day again feel some discomfort. He was given stret tommy exercises to perform, states if he does these first thing in the morning it is very he lpful, has worse days when he does not do the stretches. He is using meloxicam intermittent ly, also has been using ibuprofen as needed. He does have muscle relaxants and other medica tions for injuries and conditions unrelated to this claim. He has been doing his regular true b but his work hours have been modified. He did not injure himself elsewhere with this inci dent and has no prior history of injury or trauma to the neck. Past medical history, past surgical history, family history, social history, medications, a llergies reviewed Review of systems: As per HPI Objective: Vital signs as noted, nursing notes reviewed. Dzaxwui-whlz-cwkwxsikk, well-nourished, in no apparent distress, pleasant cooperative. Neck-normal to inspection. No paraspinous muscle spasticity. No vertebral point tendernes s, crepitus, or step-off. Diffusely tender over the right paravertebral muscles, right trap ezius and upper right medial scapular border. Does have some limitation of flexion and exte nsion because of discomfort. Negative Spurling testing. Cardiovascular-regular rate rhythm without murmur rub or gallop. Lungs-clear to auscultation bilaterally. Back-normal to inspection. No paraspinous muscle spasticity. No vertebral point tendernes s, crepitus, or step-off. No CVA tenderness percussion. Upper thoracic right medial scapul ar tenderness as previously noted. Full range of motion. Extremities-no clubbing, cyanosis, or edema. No discrepancy muscle bulk or tone. Radial p ulses 2+/4 bilaterally. Neuro-Motor strength 5/5 bilat upper extremities DTR's biceps,triceps, brachioradialis 2+/4 bilat Sensation grossly intact to light touch bilat upper extremities Skin-warm, dry, intact. No rashes or other suspicious lesions. Imaging/diagnostics: None indicated this visit. Previous x-ray imaging reports reviewed by me this visit. Pending interventions: Continue conservative management. Assessment: 1. Cervicodorsal strain Plan: Previous medical records reviewed by me this visit. Symptoms seem to be myofascial in natu re. Treatment recommendations were discussed, I am recommending a trial of physical therapy , referral will be placed this visit. Prescription for methocarbamol is provided as well wi instructions for use, sedating side effects reviewed and discussed. He may continue the meloxicam, did discuss that he should not use the meloxicam and ibuprofen simultaneously, ju st use one or the other. He'll return here in 6-8 weeks to recheck his progress and respons e to treatment, returning sooner for acute worsening or other concerns. He voices understan ding and agreement. 20 minutes spent with injured worker, reviewing medical records, imaging reports, discussin g treatment plans and coordination of care. E: Regular duty R: None Impairment undetermined at this point in time, based on current objective findings it is no t an anticipated consequence of this injury however patient has not yet reached MMI status. This note was dictated using [employer] voice recognition software. Occasional wrong- word or sound-alike substitutions may have occurred due to the inherent limitations of voice recogni tion software. Please read the chart carefully and recognize, using context, where these smith bstitutions have occurred. documented in is encounter Plan of Treatment +--------+---------+ + + + | Date | Type | Specialty | Care Team | Description | +--------+---------+ + + + | 08/16/ | Office | Urology | Abhijit Horowitz | | | 2020 | Visit | | MD [address] | | | | | | [address] | | | | | | [place] [address] | | | | | | [phone] | | | | | | | [...]
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
--- OUTSIDE RECORDS SUMMARY | ~2020-07-24 | XMS | Encounter Summary ---
Demographics + + + | Address | [address] | | | [place] [address] | + + + | Home Phone | | + + + | Preferred Language | Unknown | + + + | Marital Status | Single | + + + | Mormon Affiliation | 1013 | + + + | Race | White | + + + | Ethnic Group | Not or | + + + Author + + + | Author | [facility] | | | and [place] | + + + | Organization | [facility] | | | [...] [place] | | | | | [address] | | + + + + + Care Team Providers + +------+ + | Care Development Coach Name | Role | Phone | + +------+ + | Yared Bryant MD | PCP | | + +------+ + Reason for Visit + + + | Reason | Comments | + + + | New Patient | bladder neoplasm | + + + Evaluate & Treat (Routine) +--------+--------+ + + + + | Status | Reason | Specialty | Diagnoses / | Referred By | Referred To | | | | | Procedures | Contact | Contact | +--------+--------+ + + + + | Closed | | Urology | Diagnoses | Annette, | Jesseelove, | | | | | Bladder | Yared Scott, | Yaakov Whitley, | | | | | neoplasm | [address] | MD [address] | | | | | NEW/ BLADDER | [address] | [address] | | | | | NEOPLASM/ | [place], | [place], | | | | | [place] | [place] [address] | [place] [address] | | | | | Procedures | Phone: | Phone: | | | | | NEW PATIENT | [phone] | | | | | | | Fax: | Fax: | | | | | | [phone] | [phone] | +--------+--------+ + + + + Encounter Details +--------+---------+ + + + | Date | Type | Department | Care Team | Description | +--------+---------+ + + + | 09/22/ | Office | [facility] | Yaakov Otto | Bladder neoplasm | | 2019 | Visit | [address] | MD [address] | (Primary Dx); OAB | | | | [place], [place] | [address] | (overactive | | | | [address] | [place], [place] | bladder); Lower | | | | [phone] | [address] | urinary tract | | | | | | symptoms (LUTS) | | | | | (Fax) | | +--------+---------+ + + + Social History + + + +--------+------+ | Tobacco Use | Types | Packs/Day | Years | Date | | | | | Used | | + + + +--------+------+ | Current Every Day | Cigarettes | | | | | Smoker | | | | | + + + +--------+------+ + +------+---+---+ | Smokeless Tobacco: | Chew | | | | Current User | | | | + +------+---+---+ + + + | Sex Assigned at | Date Recorded | | | | + + + | Not on file | | + + + documented as of this encounter Last Filed Vital Signs + + + + + | Vital Sign | Reading | Time Taken | Comments | + + + + + | Blood Pressure | 118/68 | 09/22/2019 3:45 PM | | | | | PST | | + + + + + | Pulse | 82 | 09/22/2019 3:45 PM | | | | | PST | | + + + + + | Temperature | - | - | | + + + + + | Respiratory Rate | 18 | 09/22/2019 3:45 PM | | | | | PST | | + + + + + | Oxygen Saturation | - | - | | + + + + + | Inhaled Oxygen | - | - | | | Concentration | | | | + + + + + | Weight | 96.9 kg (213 lb 10 | 09/22/2019 3:45 PM | | | | oz) | PST | | + + + + + | Height | 177.8 cm (5' 10") | 09/22/2019 3:45 PM | | | | | PST | | + + + + + | Body Mass Index | 30.65 | 09/22/2019 3:45 PM | | | | | PST | | + + + + + documented in this encounter Patient Instructions Patient Instructions Treva Sutton RN - 09/22/2019 4:00 PM PSTPreoperative Instructi ons Your surgery with Dr. Otto has been scheduled for October 05, 2019 at 10:15 AM at [facility]. Please report to the [facility] no later than 8:30 AM. REMEMBER: NOTHING TO EAT OR DRINK AFTER MIDNIGHT October 05, 2019. Take all of your usual medications with a sip of water. NO ASPIRIN OR ASPIRIN PRODUCTS, NO FISH OIL OR VITAMIN E FOR ONE WEEK PRIOR TO SURGERY. Ty lenol (acetaminophen) and ibuprofen is OK. You will need someone to drive you home after surgery. Call us at [phone] with any questions. [x] Pain management booklet provided to patient. documented in this encounter Progress Notes Yaakov Otto MD - 09/22/2019 4:00 PM PSTFormatting of this note might be differ ent from the original. Chief Complaint Patient presents with New Patient bladder neoplasm HPI Teo Vargas is a 34 y.o. male patient of Yared Bryant MD here today for a evalua tion for bladder neoplasm. Has had long history of heartburn and during the evaluation had a CT scan which showed a la rge bladder mass. Underwent evaluation/cysto at [facility] and found to have a papillary mass [...] by mouth nightly. Escalating dose u nder [facility] provider. Last dose 09/20/19- holding it as [...] UA, POC Negative Negative, 100 mg/dL Specific [place], UA, POC 1.010 1.001 - 1.030 Blood, [...] have not thoroughly proofread this note, and internet sales representative errors are very likely to occur. CC: [...] | | | | | [place] [address] | | | | | | [phone] | | | | | | | | +--------+---------+ + + + documented as of this encounter Procedures + +--------+ + + + | Procedure Name | Priori | Date/Time | Associated Diagnosis | Comments | | | ty | | | | + +--------+ + + + | POCT URINALYSIS, | Routin | 09/22/2019 | Bladder neoplasm | Results for this | | AUTO WITH CONF | e | 3:57 PM | | procedure are in the | | | | PST | | results section. | + +--------+ + + + | IMAGING REPORT - | | 09/22/2019 | | Results for this | | EXTERNAL SCAN | | 12:00 AM | | procedure are in the | | | | PST | | results section. | + +--------+ + + + documented in this encounter Results POCT Urinalysis (09/22/2019 3:57 PM PST) + + + + + + | Component | Value | Ref Range | Performed | Pathologist | | | | | At | Signature | + + + + + + | Color, UA, | Yellow | Yellow, Light | | | | POC | | Yellow | | | + + + + + + | Clarity, | Clear | | | | | UA, POC | | | | | + + + + + + | Glucose, | Negative | Negative | | | | UA, POC | | | | | + + + + + + | Bilirubin, | Negative | Negative | | | | UA, POC | | | | | + + + + + + | Ketones, | Negative | Negative, 100 | | | | UA, POC | | mg/dL | | | + + + + + + | Specific | 1.010 | 1.001 - 1.030 | | | | [place], | | | | | | UA, POC | | | | | + + + + + + | Blood, UA, | Negative | Negative | | | | POC | | | | | + + + + + + | pH, UA, POC | 7.0 | 5.0, 6.0, 7.0, | | | | | | 8.0, 5.5, 6.5, | | | | | | 7.5 | | | + + + + + + | Protein, | Negative | Negative | | | | UA, POC | | | | | + + + + + + | Urobilinoge | 0.2 | 0.2, Negative, | | | | n, UA, POC | | Normal, < 0.2 | | | | | | mg/dL, 1 mg/dL, | | | | | | < 0.2 E.U./dl, | | | | | | 1.0 E.U./dL, | | | | | | 0.2 mg/dL | | | + + + + + + | Nitrite, | Negative | Negative | | | | UA, POC | | | | | + + + + + + | Leukocyte | Negative | Negative | | | | Esterase, | | | | | | UA, POC | | | | | + + + + + + | Remark | | | | | + + + + + + + + | Specimen | + + | Urine | + + IMAGING REPORT - EXTERNAL SCAN (09/22/2019 12:00 AM PST) + + + | Narrative | Performed At | + + + | Ordered by an | | | unspecified provider. | | + + + documented in this encounter Visit Diagnoses + + | Diagnosis | + + | Bladder neoplasm - Primary Neoplasm of unspecified nature of bladder | + + | OAB (overactive bladder) Hypertonicity of bladder | + + | Lower urinary tract symptoms (LUTS) Other symptoms involving urinary system | + + documented in this encounter
--- OUTSIDE RECORDS SUMMARY | ~2020-07-24 | XMS | Encounter Summary ---
Demographics + + + | Address | [address] | | | [place] [address] | + + + | Home Phone | | + + + | Preferred Language | Unknown | + + + | Marital Status | Single | + + + | Advent Affiliation | 1013 | + + + [...] [address] | | | | | [facility] | | | | | [address] | | + + + + + Care Team Providers + +------+ + | Care Drying Oven Tender Name | Role | Phone | + +------+ + | Yared Bryant MD | PCP | | + +------+ + Encounter Details +--------+ + + + + | Date | Type | Department | Care Team | Description | +--------+ + + + + | 01/18/ | Imaging | [facility] | Provider, | | | 2020 | Exam | MED [facility] EXTERNAL | MD [address] | | | | | IMAGING [address] | [address] | | | | | [address] [place] | [place] [address] | | | | | [place] [address] | | | | | | [phone] | | | +--------+ + + + [...] | | | | | [place] [address] | | | | | | [phone] | | | | | | | | +--------+---------+ + + + documented as of this encounter Procedures + +--------+ + + + | Procedure Name | Priori | Date/Time | Associated Diagnosis | Comments | | | ty | | | | + +--------+ + + + | CT ABDOMEN PELVIS W | Routin | 01/16/2020 | | Results for this | | CONTRAST | e | 12:00 AM | | procedure are in the | | | | PDT | | results section. | + +--------+ + + + documented in this encounter Results CT Abdomen Pelvis w Contrast (01/16/2020 12:00 AM PDT) + + | Specimen | + + | | + + + + + | Narrative | Performed At | + + + | External films for comparison only | [facility] | | | | | No results will be in the chart. | | + + + + +---------+ + + | Performing | Address | City/State/Zipcode | Phone Number | | Organization | | | | + +---------+ + + | [facility] | | | | + +---------+ + + documented in this encounter Visit Diagnoses Not on filedocumented in this encounter"
--- OUTSIDE RECORDS SUMMARY | ~2020-07-24 | XMS | Encounter Summary ---
Demographics + + + | Address | [address] | | | [place] [address] | + + + | Home Phone [...] + + + | Author | [facility] | | | and [place] | + + + | Organization | [facility] | | | and [place] | + + + | Address | Unknown | + + + | Phone | Unavailable | + + + Support + + + + + | Name | Relationship | Address | Phone | + + + + + | Teo Vargas | ECON | [address] | | | | | [facility] [place] | | | | | [address] | | + + + + + Care Team Providers + +------+ + | Care Central Supply Technician Name | Role | Phone | + +------+ + | No, Physician | PCP | Unavailable | + +------+ + Reason for Visit +--------+--------+ + | Reason | Onset | Comments | | | Date | | +--------+--------+ + | Other | 10/22/ | | | | 2016 | | +--------+--------+ + Encounter Details +--------+ + + + + | Date | Type | Department | Care Team | Description | +--------+ + + + + | 10/22/ | Telephone | [facility] | Tracy Sanchez, | Other | | 2017 | | CARE [address] | Need updated | | | | | [place] | address | | | | | [address] | | | | | | [phone] | | | +--------+ + + + [...] this encounter Miscellaneous Notes Telephone Encounter - Julio César Hood CMA - 10/27/2017 10:46 AM PSTCalled patient and relie d the message. He was frustrated with the situation but understood and stated he will try to come in tomorrow to be seen again. elephone Encounter - Kacie Estevez Cert MA - 10/23/2017 1:50 PM PSTCalled pt and left message for him to call back. elephone Earl r - Tracy Sanchez MD - 10/23/2017 11:03 AM PSTWe have to see him to order MRI in order to get it approved. el ephone Encounter - BoardKacie Cert MA - 10/22/2017 2:42 PM PSTCalled pt to find out wha t he was asking and pt said that he was calling to get the MRI ordered. I re read the note zak morales had read to him 10/20/17 and pt is wanting to know if Dr Sanchez would re consider order ing this to take place in [place] due to not having enough money to come back to [place]. Notified pt that I would submit note to Dr Sanchez and she would be in the office 10/23/17 and we would contact after she addresses note. elephone Chaparrita Adrian - 10/22/2017 11:45 AM PSTContact/Caller: Teo Vargas Contact Number: Provider/Nurse:Daniel/ Kacie Reason for Call: Patient was calling regarding getting a poss MRI set up. Please Advise.Jayesh mckeon you. Last Appointment: 09/21/17 documented in this encounter Plan of Treatment +--------+---------+ + + + | Date | Type | Specialty | Care Team | Description | +--------+---------+ + + + | 08/16/ | Office | Urology | Abhijit Horowitz | | | 2019 | Visit | | [address] | | | | | | [place] | | | | | | [place] [address] | | | | | | [phone] | | | | | | | | +--------+---------+ + + + documented as of this encounter Visit Diagnoses Not on filedocumented in this encounter"
--- OUTSIDE RECORDS SUMMARY | ~2020-07-24 | XMS | Encounter Summary ---
Demographics + + + | Address | [address] | | | [place] [address] | + + + | Home Phone [...] Author + + + | Author | [facility] | | | and [place] | + + + | Organization | [facility] | | | and [place] | + + + | Address | Unknown | + + + | Phone | Unavailable | + + + Support + + + + + | Name | Relationship | Address | Phone | + + + + + | Teo Vargas | ECON | [address] | | | | | [place], [place] | | | | | [address] | | + + + + + Care Team Providers + +------+ + | Care Employment Representative Name | Role | Phone | [...] | Reji Reddy MD | [address] | | | | | derangement | [address] | [place], | | | | | of right | [address] [place] | [place] | | | | | knee | [place] | [address] | | | | | Procedures | [address] | Phone: | | | | | MRI Knee | Phone: | [phone] | | | | | Right wo | [phone] | Fax: | | | | | Contrast | Fax: | [phone] | | | | | | [phone] | | +--------+--------+ + + + + Reason for Visit Diagnostic/Screening (Routine) +--------+--------+ + + + + | Status | Reason | Specialty | Diagnoses / | Referred By | Referred To | | | | | Procedures | Contact | Contact | +--------+--------+ + + + + | Closed | | Radiology | Diagnoses | [place], | [facility] | | | | | Internal | Reji Reddy MD | [address] | | | | | derangement | [address] | [place], | | | | | of right | [address]VE [place] | [place] | | | | | knee | [place], [place] | [address] | | | | | Procedures | [address] | Phone: | | | | | MRI Knee | Phone: | [phone] | | | | | Right wo | [phone] | Fax: | | | | | Contrast | Fax: | [phone] | | | | | | [phone] | | +--------+--------+ + + + + Encounter Details +--------+ + + + + | Date | Type | Department | Care Team | Description | +--------+ + + + + | 11/06/ | Hospital | [facility] | Reji [place], | Internal derangement | | 2018 | Encounter | MED CTR MRI [address] | [address] | of right knee | | | | [place], | [place], [place] | | | | | [place] [address] | [address] | | | | | [phone] | | | +--------+ + + + [...] +---------+ + + | gabapentin | Take 600 mg by mouth | | 0 | | | | (NEURONTIN) 600 MG | 3 times daily. | | | | 9 | | tablet | | | | | | + + + +---------+ + + | methocarbamol | Take 2 tablets by | 30 | 0 | 10/22/20 | | | (ROBAXIN) 750 mg | mouth every 6 hours | tablet | | 17 | 8 | | tablet | as needed for Muscle | | | | | | | spasms. | | | | | + + + +---------+ + + | methylphenidate | Take 20 mg by mouth | | 0 | | | | (RITALIN) 20 MG | 2 times daily. | | | | 9 | | tablet | | | | | | + + + +---------+ + + | omeprazole | Take 20 mg by mouth | | 0 | | | | (PRILOSEC) 20 mg | every morning | | | | 9 | | capsule | (before breakfast). | | | | | + + [...] | | | | | [place] [address] | | | | | | [phone] | | | | | | | | +--------+---------+ + + + documented as of this encounter Procedures + +--------+ + + + | Procedure Name | Priori | Date/Time | Associated Diagnosis | Comments | | | ty | | | | + +--------+ + + + | MRI KNEE RIGHT WO | Routin | 11/06/2017 | Internal | Results for this | | CONTRAST | e | 2:46 PM | derangement of right | procedure are in the | | | | PST | knee | results section. | + +--------+ + + + documented in this encounter Results MRI Knee Right wo [...] + | Internal derangement of right knee Unspecified internal derangement of knee | + + documented in this encounter"
--- OUTSIDE RECORDS SUMMARY | ~2020-07-24 | XMS | Encounter Summary ---
Demographics + + + | Address | [address] | | | [place] [address] | + + + | Home Phone | | + + + | Preferred Language | Unknown | + + + | Marital Status | Single | + + + | Oriental Orthodox Affiliation | 1013 | + + + | Race | White | + + + | Ethnic Group | Not or | + + + Author + + + | Author | [facility] | | | and [place] | + + + | Organization | [facility] | | | [...] [place] | | | | | [address] | | + + + + + Care Team Providers + +------+ + | Care Forklift Mechanic Name | Role | Phone | + +------+ + | Yared Bryant MD | PCP | | + +------+ + Reason for Visit +---------+--------+ + | Reason | Onset | Comments | | | Date | | +---------+--------+ + | Results | 10/11/ | | | | 2019 | | +---------+--------+ + Encounter Details +--------+ + + + + | Date | Type | Department | Care Team | Description | +--------+ + + + + | 10/11/ | Telephone | [facility] | Yaakov Otto | Results | | 2019 | | [address] | [address] | | | | | [place] | [place] | | | | | [address] | [place], [place] | | | | | [phone] | [address] | | | | | | | [...] this encounter Miscellaneous Notes Telephone Encounter - Yaakov Otto MD - 10/11/2019 12:15 PM PSTSpoke with gabriel crespo to discuss pathology results. Tumor came back as low-grade bladder cancer. We discussed that bladder cancer does tend to recur however low-grade bladder cancer generally does not s pread or locally invade. We will plan for surveillance cystoscopy in 3 months.Electronicall y signed by Yaakov Otto MD at 10/11/2019 12:17 PM PSTdocumented in this encounter Plan of Treatment +--------+---------+ + + + | Date | Type | Specialty | Care Team | Description | +--------+---------+ + + + | 08/16/ | Office | Urology | Abhijit Horowitz | | | 2019 | Visit | | [address] | | | | | | [place] | | | | | | [place] [address] | | | | | | [phone] | | | | | | | | +--------+---------+ + + + documented as of this encounter Visit Diagnoses Not on filedocumented in this encounter"
--- OUTSIDE RECORDS SUMMARY | ~2020-07-24 | XMS | Clinical Summary ---
Demographics + + + | Address | [address] | | | [place] [address] | + + + | Home Phone | | + + + | Preferred Language | Unknown | + + + | Marital Status | Single | + + + | Adventist Affiliation | Unknown | + + + | Race | White | + + + | Ethnic Group | Not or | + + + Author + + + | Author | [facility] | + + + | Organization | [facility] | + + + | Address | Unknown | + + + | Phone | Unavailable | + + + Support + + +---------+ + | Name | Relationship | Address | Phone | + + +---------+ + | Ole Vargas Sr. | ECON | Unknown | | + + +---------+ + Care Team Providers + +------+ + | Care Literary Agent Name | Role | Phone | + +------+ + | Yared Bryant MD | PCP | | + +------+ + Source Comments [facility] is fully live on both [facility] and [facility] InPatient.[facility] Allergies + + + + + + | Active Allergy | Reactions | Severity | Noted | Comments | | | | | Date | | + + + + + + | Hydroxyzine Hcl | Nausea and Vomiting | | 09/21/20 | | | | | | 17 | | + + + + + + | Sulfa (Sulfonamide | Nausea and Vomiting | | 10/01/20 | | | Antibiotics) | | | 13 | | + + + + + + | Sulfamethoxazole-Tri | Nausea and Vomiting | | 09/21/20 | | | methoprim | | | 17 | | + + + + + + | Tramadol | Nausea and Vomiting | | 09/21/20 | | | | | | 17 | | + + + + + + Medications + + + +---------+------+------+-------+ | Medication | Sig | Dispensed | Refills | Star | End | Statu | | | | | | t | Date | s | | | | | | Date | | | + + + +---------+------+------+-------+ | | take 1 tablet by | | 0 | 09/1 | | Activ | | dextroamphetamine-am | mouth twice a day | | | 06/21 | | e | | phetamine 5 mg oral | | | | 19 | | | | tablet | | | | | | | + + + +---------+------+------+-------+ | gabapentin 100 mg | take 1 capsule by | | 0 | 06/03 | | Activ | | oral capsule | mouth at bedtime and | | | 06/21 | | e | | | INCREASE BY 1 | | | 19 | | | | | capsule ever... | | | | | | | | (REFER TO | | | | | | | | PRESCRIPTION NOTES). | | | | | | + + + +---------+------+------+-------+ Active Problems + + + | Problem | Noted Date | + + + | Scapula fracture | 05/04/2012 | + + + Family History + + +------+ + | Medical History | Relation | Name | Comments | + + +------+ + | problems | Neg Hx | | | + + +------+ + Social History + + + +--------+------+ [...] | | | + +------+---+---+ + + | Tobacco Cessation: Ready to Quit: Yes; Counseling Given: Yes | + + + + +---------+ + | Alcohol Use [...] Temperature | 36.6 C (97.9 F) | 07/22/2019 2:03 PM | | | | | PDT | | + + + + + | Respiratory Rate | 16 | 07/22/2019 2:03 PM | | | | | PDT | | + + + + + | Oxygen Saturation | 99% | 07/22/2019 2:03 PM | | | | | PDT [...] | | + + + + + Plan of Treatment + + +-------+ + | Health Maintenance | Due Date | Last | Comments | | | | Done | | + + +-------+ + | Pneumococcal | | | | | vaccination (1 of 1 | 0 | | | | - PPSV23) | | | | + + +-------+ + | Influenza (Flu) | | | | | vaccination (#1) | 0 | | | + + +-------+ + Results Not on filefrom Last 3 Months Insurance + +--------+ +--------+-------+---------+--------+ | Payer | Benefi | Subscriber | Effect | Phone | Address | Type | | | t Plan | ID | don | | | | | | / | | Dates | | | | | | Group | | | | | | + +--------+ +--------+-------+---------+--------+ | [employer] MEDICAID | HRBP | [id number] | 05/02/20 | | | Medica | | | [place] | | 19-Pre | | | id | | | [place] | | sent | | | | + +--------+ +--------+-------+---------+--------+ + +--------+ +--------+ + + | Guarantor Name | Accoun | Relation to | Date | Phone | Billing Address | | | t Type | Patient | of | | | | | | | | | | + +--------+ +--------+ + + | Teo Vargas | Person | Self [birth year] | [address] | | | al/Fam | | 1984 | [phone] | [address] [place], | | | [place] | | | [address] (Home) | [place] [address] | + +--------+ +--------+ + + | Teo Vargas | Third | Self | [birth year] | [address] | | | [employer] Party | | 1985 | [phone] | [address] [place], | | | [place] | | | [address] ([place]) | [place] [address] | | | suze | | | | | + +--------+ +--------+ + +
--- OUTSIDE RECORDS SUMMARY | ~2020-07-24 | XMS | Encounter Summary ---
Demographics + + + | Address | [address] | | | [place] [address] | + + + | Home Phone | | + + + | Preferred Language | Unknown | + + + | Marital Status | Single | + + + | Anglican Affiliation | 1013 | + + + [...] [address] | | | | | [facility] | | | | | [address] | | + + + + + Care Team Providers + +------+ + | Care Town Planner Name | Role | Phone | + +------+ + PCP | Unavailable | + +------+ + Encounter Details +--------+ + + + + | Date | Type | Department | Care Team | Description | +--------+ + + + + | 03/31/ | [facility] | [facility] | Jeffrey Davis, | Cellulitis of left | | 2016 - | Encounter | [facility]ICAL [facility]ENTER | [address] | lower leg; Lower leg | | | | CLINICAL DECISION | [place] [address] | DVT (deep venous | | 04/03/ | | [address] | [phone] | thromboembolism), | | 2016 | | [place], [place] | | acute, left (HCC) | | | | [phone] | | | | | | [phone] | | | +--------+ + + + [...] + + + | Blood Pressure | 124/79 | 04/03/2016 1:15 PM | | | | | PDT | | + + + + + | Pulse | 81 | 04/03/2016 1:15 PM | | | | | PDT | | + + + + + | Temperature | 36.4 C (97.6 F) | 04/03/2016 1:15 PM | | | | | PDT | | + + + + + | Respiratory Rate | 18 | 04/03/2016 1:15 PM | | | | | PDT | | + + + + + | Oxygen Saturation | - | - | | + + + + + | Inhaled Oxygen | - | - | | | Concentration | | | | + + + + + | Weight | 98.5 kg (217 lb 2.4 | 04/03/2016 1:15 PM | | | | oz) | PDT | | + + + + + | Height | 180.3 cm (5' 11") | 04/03/2016 1:15 PM | | | | | PDT | | + + + + + | Body Mass Index | 30.29 | 04/03/2016 1:15 PM | | | | | PDT | | + + + + + documented in this encounter Discharge Summaries Grace Alvarado MD - 04/03/2016 9:52 AM PDT Discharge Summaries by Grace Alvarado MD at 04/03/16 0952 Author: Grace Alvarado MD Service: Hospitalist Author Type: Physician Filed: 04/11/16 1237 Date of Service: 04/03/16 0952 Status: Signed Explosive Specialist: Grace Alvarado MD (Physician) Related Notes: Original Note by Grace Alvarado MD (Physician) filed at 04/03/16 1230 Patient ID: Teo Saleem Jr. [id number] 30 y.o. 1985 Admit date: 03/31/2016 Discharge date and time: 04/03/16 Admitting Physician: Jeffrey Davis MD Discharge Physician: MD Nikolay Consults: Primary Discharge Diagnoses: Cellulitis of left leg and open wound Thrombus in soleus vein of left leg Acute left leg pain Acute diarrhea Discharged Condition: good Significant Diagnostic Studies: Lab Results Component Value Date WBC 5.55 04/03/2016 HGB 14.3 04/03/2016 HCT 42.6 04/03/2016 MCV 78.6* 04/03/2016 PLT 203 04/03/2016 GLUCOSE Date Value Ref Range Status 04/01/2016 105* 65 - 99 mg/dL Final Comment: Testing performed at [facility], [address] [place] [address] BUN Date Value Ref Range Status 04/01/2016 16 8 - 25 mg/dL Final Comment: Testing performed at [facility], [address] [place] [address] [place] [address] CREATININE Date Value Ref Range Status 04/01/2016 1.06 0.70 - 1.30 mg/dL Final Comment: Testing performed at [facility], [address] [place] [address] BUN/CREAT Date Value Ref Range Status 04/01/2016 15 Final Comment: Testing performed at [facility], [address] [place] [address] TOTAL PROTEIN Date Value Ref Range Status 03/31/2016 7.1 6.3 - 8.2 g/dL Final Comment: Testing performed at [facility];[address] [place] [address];[place] [address] GLOBULIN Date Value Ref Range Status 03/31/2016 3.9 1.3 - 4.9 g/dL Final Comment: Testing performed at [facility];[address] [place] [address];[place] [address] TBIL Date Value Ref Range Status 03/31/2016 0.2 0.1 - 1.5 mg/dL Final Comment: Testing performed at [facility];[address] [place] [address];[place] [address] ALT Date Value Ref Range Status 03/31/2016 11 10 - 65 U/L Final Comment: Testing performed at [facility];[address] [place] [address];[place] [address] AST Date Value Ref Range Status 03/31/2016 12 10 - 45 U/L Final Comment: Testing performed at [facility];[address] [place] [address];[place] [address] SODIUM Date Value Ref Range Status 04/01/2016 139 135 - 143 mmol/L Final Comment: Testing performed at [facility], [address] [place] [address] POTASSIUM Date Value Ref Range Status 04/03/2016 4.1 3.5 - 4.9 mmol/L Final Comment: Testing performed at [facility], [address] [place] [address] CHLORIDE Date Value Ref Range Status 04/01/2016 107 99 - 109 mmol/L Final Comment: Testing performed at [facility], [address] [place] [address] CO2 Date Value Ref Range Status 04/01/2016 25 23 - 32 mmol/L Final Comment: Testing performed at [facility], [address] [place] [address] ANION GAP AGA Date Value Ref Range Status 04/01/2016 11 5 - 20 mmol/L Final Comment: Testing performed at [facility], [address] [place] [address] X-ray Ankle Limited Left 04/01/2016 TEO RHODESSHYAM CONN 1985 XR ANKLE LIMITED LEFT 03/31/2016 7:10 PM IN DICATION: Joint pain COMPARISON: MRI dated 03/31/2016 TECHNIQUE: Left ankle series, 3 views 04/01/2016 FINDINGS/ IMPRESSION: 1. No acute fracture or malalignment. Ankle mortise is i ntact. No ankle joint effusion. 2. No lytic or sclerotic lesions in visualized bones. No pe riosteal reaction or cortical erosions to indicate acute osteoarthritis. 3. Mild soft tissu e swelling about ankle. Mri Tibia Fibula Left W Wo Contrast 03/31/2016 EXAM: Left Calf/Tibia MRI Without and With Contrast EXAM DATE: 03/31/2016 03:1 3 PM. CLINICAL HISTORY: Left lower leg infection. Evaluate for abscess. COMPARISON: None. TECHNIQUE: Multiplanar, multisequence T1-weighted and fluid-sensitive sequences of the calf /tibia before and after administration of intravenous contrast. IV contrast: 21 cc MultiHanc e. Other: None. FINDINGS: Bones: No fractures or subluxations. No marrow edema or abnormal enhancement. No bone lesions. Joint Spaces: Visualized portions of the ankle and knee join ts are unremarkable. Tendons: Where visualized, the Achilles and plantaris tendons are inta ct. There is occlusive thrombus within a soleus muscle vein. The thrombus within the vein m easures approximately 5.4 cm cranial caudal by 0.6 cm medial to lateral by 0.0.6 cm AP. Ther e is a mild amount of edema within the soleus muscle immediately adjacent to the thrombosed vein. The visualized tibial, peroneal, and popliteal veins appear patent. There is a small open cutaneous and subcutaneous wound at the anterior aspect of the mid lower leg. There is subcutaneous edema, swelling, and enhancement at the anterior and medial aspects of the lowe r leg. 03/31/2016 1. An approximately 5.4 x 0.6 x 0.6 cm occlusive thrombus within a soleus musc le vein. Mild amount of edema within the soleus muscle immediately adjacent to the thrombose d vein. The visualized tibial, peroneal, and popliteal veins appear patent. Consider further evaluation with a lower extremity Doppler ultrasound exam to further evaluate the left lowe r extremity deep veins. 2. Very small open cutaneous and subcutaneous wound at the anterior aspect of the mid lower leg. Subcutaneous edema, swelling, and enhancement at the anteromed ial aspects of the lower leg suggestive of cellulitis. No evidence of abscess. 3. No evidenc e of osteomyelitis. CRITICAL RESULT: The findings were discussed with Harshil López on 03/31, time 1535. [facility] MUSCULOSKELETAL RADIOLOGY SECTION Electronically signed by Lalito Funk MD on Mar 31 2016 3:36PM Referring Provider Line: [phone] ID: [id number] Lower Extremity Venous Left 03/31/2016 EXAM: LEFT LOWER EXTREMITY VENOUS ULTRASOUND EXAM DATE: 03/31/2016 04:06 PM. CLINICAL HISTORY: Left calf pain and redness. COMPARISON: None. TECHNIQUE: Real-time sonog raphic vascular imaging was performed by the rn review through the lower extremity utilizi ng both color-flow and Doppler spectral analysis. Multiple electronics parts sales representative static images were saved for review. FINDINGS: Common Femoral Vein (CFV): Normal. CFV-GSV Junction: Normal. Profunda Femoral Vein (PFV): Normal. Femoral Vein (FV) Prox: Normal. Femoral Vein (FV) Mid: Normal. Femoral Vein (FV) Dist: Normal. Popliteal Vein: Normal. Posterior Tibial Veins: Norm al. Peroneal Veins: Normal. Other: Subcutaneous edema noted in the region of redness. 03/31/2016 No evidence for deep venous thrombosis. [facility] Electronically signed by Wilbur Ramirez MD on Mar 31 2016 5:09PM Referring Provider Line: [phone] ID: [id number] HPI and Hospital Course: 30-year-old gentleman with past medical history of ADHD and adjustment disorder who had a s kin graft in 2011 present with left leg swelling and redness for which she had treatment wit h erythromycin, Cipro, intramuscular Rocephin and most recently IV Ancef [facility] after he was found to have increased swelling and redness of her l eft leg and on arrival and MRI off left leg was negative for osteomyelitis and showed cellul itis and thrombosis of her left leg swelling is pain on MRI but ultrasound left leg negative for deep vein thrombosis. Patient was remaining afebrile no leukocytosis and admitted to spitalist service with left leg cellulitis and failed outpatient antibody therapy started em pirically on Ancef as he was MRSA negative and from ID following. Patient left leg wound culture growing gram-negative rods and Ancef changed to cefepime by Dr. Kruger 1. When I saw the patient on the day of discharge, he was doing better. He denied any swell ing or erythema. No warmth, though still complaining of pain, 6 to 8/10, and his diarrhea re solved. The patient's wound culture from the left leg wound is growing Stenotrophomonas malt ophilia sensitive to Bactrim and Levaquin. As the patient is ALLERGIC TO SULFA, we will disc harge him home on Levaquin 750 mg p.o. daily for 14 days as recommended by Dr. Kruger. The [facility] was instructed for daily wound dressing changes every day. 2. Soleus vein thrombosis of the left leg for which the patient was started on Lovenox 1.5 mg/kg as recommended by Dr. Villalobos for a total of 2 weeks and will be discharged home o n Lovenox for another 10 to 12 days. He needs to follow up with Dr. Villalobos within 1 to 2 weeks. He will plan to do repeat ultrasound to rule out any DVT. If negative, then Lovenox can be stopped. 3. Acute diarrhea which was negative for C. diff. and likely antibiotic induced, resolved n ow. I spent more than 30 minutes on discharge. BP 124/79 mmHg | Pulse 81 | Temp(Src) 97.6 F (36.4 C) (Oral) | Resp 18 | Ht 1.803 m (5' 11") | Wt 98.5 kg (217 lb 2.5 oz) | BMI 30.30 kg/m2 | SpO2 94% Intake/Output Summary (Last 24 hours) at 04/03/16 1230 Last data filed at 04/03/16 0863 Gross per 24 hour Intake 1792 ml Output 700 ml Net 1092 ml Discharge Exam: Constitutional: Alert and oriented to person, place, and time. Appears well-developed and w ell-nourished. Cardiovascular: Normal rate, regular rhythm, normal heart sounds and intact distal pulses. Exam reveals no gallop and no friction rub. No murmur heard. Pulmonary/Chest: Effort normal and breath sounds normal. No stridor. No respiratory distres s. no wheezes. no rales. exhibits no tenderness. Abdominal: Soft. Bowel sounds are normal. exhibits no distension and no mass. There is no t enderness. There is no rebound and no guarding. Musculoskeletal: Normal range of motion.exhibits no tenderness. exhibits no edema. Neurological: Alert and oriented to person, place, and time. Has normal reflexes. display s normal reflexes. No cranial nerve deficit. Exhibits normal muscle tone. Coordination norm al. Skin:Left cervantes wound has dressing at place at wound site and no erythema,warmth or discharg e around the dressing Psychiatric: Has a normal mood and affect. Behavior is normal. Judgment normal. Disposition: [address] [place] [address] Patient Instructions: Medication List START taking these medications BACID Tabs QTY: 28 each Refills: 0 Take 1 tablet by mouth 2 (two) times daily. collagenase ointment QTY: 15 g Refills: 1 Directions As above enoxaparin 150 MG/ML injection QTY: 12 mL Refills: 0 Commonly known as: LOVENOX Inject 1 mL into the skin daily. HYDROcodone-acetaminophen 5-325 MG per tablet QTY: 30 tablet Refills: 0 Commonly known as: NORCO Take 1 tablet by mouth every 4 (four) hours as needed. levofloxacin 750 MG tablet QTY: 14 tablet Refills: 0 Commonly known as: LEVAQUIN Take 1 tablet by mouth Once a Day-Quinalones. Indications: Complicated Infection of the Ski n and Skin Structures CONTINUE taking these medications acetaminophen 325 MG tablet Refills: 0 Commonly known as: TYLENOL diflunisal 500 MG Tabs Refills: 0 Commonly known as: DOLOBID FLUoxetine 20 MG capsule Refills: 0 Commonly known as: PROzac hydrOXYzine 50 MG tablet Refills: 0 Commonly known as: ATARAX omeprazole 20 MG capsule Refills: 0 Commonly known as: PRILOSEC sodium chloride 0.65 % nasal Refills: 0 Commonly known as: OCEAN triamcinolone 0.025 % ointment Refills: 0 Commonly known as: KENALOG STOP taking these medications ceFAZolin 1 G injection Commonly known as: ANCEF Where to Get Your Medications These are the prescriptions that you need to pick up man. You may get the following medications from any pharmacy - BACID Tabs - collagenase ointment - enoxaparin 150 MG/ML injection - HYDROcodone-acetaminophen 5-325 MG per tablet - levofloxacin 750 MG tablet Activity: activity as tolerated Diet: regular diet Wound Care: not applicable There are no Patient Instructions on file for this visit. Hussain Villalobos MD [address] [facility] [address] In 2 weeks Harshil Kruger DO [address] [facility] [address] In 2 weeks Signed: GRACE ALVARADO 04/03/2016 12:30 PM documented in this en counter Progress Notes Conversion Transaction, Provider Unknown - 04/03/2016 1:40 PM PDTFormatting of this note m ight be different from the original. Nurse Progress Note by Francisca Mcknight RN at 04/03/16 134 Author: Francisca Mcknight RN Service: (none) Author Type: Registered Nurse Filed: 04/03/16 1340 Date of Service: 04/03/161339 Status: Signed Explosive Specialist: Francisca Mcknight RN (Registered Nurse) Pt has been alert and oriented x4. VSS. Pt continues to complain of pain in LLE. Pain medi cation only given x1 this shift dt patient not wanting to take pain meds. No other acute nelly nges from previous assessment. FRANCISCA MCKNIGHT RN onver philip Transaction, Provider Unknown - 04/03/2016 1:39 PM PDT Case Management by Niurka Douglas RN at 04/03/168 Author: Niurka Douglas RN Service: (none) Author Type: Registered Nurse Filed: 04/03/16 1343 Date of Service: 04/03/161338 Status: Signed Explosive Specialist: Niurka Douglas RN (Registered Nurse) Disposition: [facility] Transportation: Guards RN to RN called to the facility, scripts and wound care orders faxed to the [facility]. All DC paperwork completed Medicare important message (Given or N/A): N/A Judith Douglas RN CM Harshil Goff DO - 04/03/2016 10:57 AM PDTFormatting of this note might be different from the chinmay ginal. Progress Notes by Harshil Kruger DO at 04/03/16 1051 Author: Harshil Kruger DO Service: (none) Author Type: Physician Filed: 04/03/16 9534 Date of Service: 04/03/16 3524 Status: Signed Explosive Specialist: Harshil Kruger DO (Physician) [facility] Service: Infectious Disease Progress Note Hospital Day: LOS: 3 days Post-Op Day: * No surgery found * SUBJECTIVE Patient Summary: 30 y.o. male with significant past medical history of ADHD, adjustm ent disorder, left cervantes skin graft in 2011 who presents with left leg swelling and redness. The patient has been undergoing treatment for cellulitis of the left leg [facility] over the past several weeks. Prior treatments have included erythromycin, Cipro, intramu scular Rocephin and most recently IV Ancef. The patient was sent to the emergency department on March 31 after he was found to have increasing swelling and redness of the left leg. Wor kup on arrival here included an MRI to assess for osteomyelitis which was reassuring in that regard, but did reveal a deep vein thrombosis with associated adjacent muscular edema. The patient has been started on anticoagulation for the deep vein thrombosis. He did not have an y fever or leukocytosis on admission, and was maintained on his prior Ancef. Wound culture shows gram-negative rods, antibiotics switched to cefepime on April 02. CC: Left leg pain Chart reviewed: No new events. Subjective The patient reports continued severe pain in the left leg, high sensitivity to light touch. Packing was removed last evening, and then unable to repack the wound. He denies any fevers or chills. No nausea or vomiting. ROS No fever, chills sweats. No nausea, vomiting or diarrhea. No rashes or pruritis. No oral pa in. Scheduled Medications collagenase Topical Daily enoxaparin 1.5 mg/kg Subcutaneous Q24H levofloxacin 750 mg Oral QDQ sodium chloride 10 mL Intravenous Q8H Continuous Infusions PRN Medications acetaminophen OR acetaminophen, HYDROcodone-acetaminophen OR HYDROcodone-acetaminop hen, magnesium sulfate OR magnesium sulfate OR magnesium sulfate, ondansetron OR ondansetron, phosphorus OR sodium phosphate IVPB 20 mmol OR sodium phosphate IVPB 4 5 mmol, polyethylene glycol, potassium chloride OR potassium chloride OR potassium c hloride, sodium chloride 0.9 %, zolpidem OBJECTIVE Vital Signs: BP 139/86 mmHg | Pulse 87 | Temp(Src) 97.7 F (36.5 C) (Oral) | Resp 18 | Ht 1.803 m (5' 11") | Wt 98.5 kg (217 lb 2.5 oz) | BMI 30.30 kg/m2 | SpO2 100% Temp (24hrs), Av.7 F (36.5 C), Min:97.3 F (36.3 C), Max:97.9 F (36.6 C) Exam: Const: Vitals reviewed. No acute distress Skin: No rashes, no edema. Erythema on the medial left calf looks much better. Palpable sub cutaneous scar tissue but no fluctuance. ENT: No thrush. Lungs: CTAB, no rales or wheezes Heart: RRR, no murmur Abd: soft, NT, + bowel sounds DATA CBC: Lab Results Component Value Date WBC 5.55 04/03/2016 RBC 5.42 04/03/2016 HGB 14.3 04/03/2016 HCT 42.6 04/03/2016 MCV 78.6* 04/03/2016 MCH 26.4* 04/03/2016 MCHC 33.5 04/03/2016 RDW 34.1* 04/03/2016 PLT 203 04/03/2016 MPV 8.3 04/03/2016 DIFFTYPE AUTOMATED 04/03/2016 CMP: Lab Results Component Value Date NA 139 04/01/2016 K 4.1 04/03/2016 CL 107 04/01/2016 CO2 25 04/01/2016 ANIONGAP 11 04/01/2016 GLUF 105* 04/01/2016 BUN 16 04/01/2016 CREATININE 1.06 04/01/2016 BCR 15 04/01/2016 CA 8.5 04/01/2016 PROT 7.1 03/31/2016 ALB 3.3* 03/31/2016 GLOB 3.9 03/31/2016 BILITOT 0.2 03/31/2016 ALP 63 03/31/2016 AST 12 03/31/2016 ALT 11 03/31/2016 EGFR >60 04/01/2016 Microbiology: Blood cultures negative 2. Wound culture collected on admission shows steno trophomonas, sensitive to Levaquin and Bactrim. PROBLEM LIST Principal Problem: Left leg cellulitis Active Problems: Non-healing wound of lower extremity--left, cervantes area Thrombus--left leg soleus vein ASSESSMENT & PLAN Left leg cellulitis (03/31/2016) The patient does not have significant ongoing cellulitis at the site of the ulcer. The eryt sheba in the medial calf is likely related to underlying thrombosis, with subsequent vascular congestion. This is associated with a sinus tract that likely leads down to muscle, does no t appear to be down to bone. MRI does not show any evidence of bone infection, muscle absces s. Wound culture shows stenotrophomonas which has not been well covered with any of his anti biotics to date. Agree with levofloxacin, which treat for a total of 14 days. Non-healing wound of lower extremity--left, cervantes area (03/31/2016) Appreciate wound care attention to the ulcer and adjacent unrelated sinus tract. Thrombus--left leg soleus vein (03/31/2016) Anticoagulation per primary service. 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 Hyperesthesia of left lower extremity The patient has profound sensitivity to light touch in the entire lower extremity including the ankle and foot. There are no signs of infection in these areas. This is most likely flaca ropathic. He will need eventual neurology consultation to assess for peripheral neuropathy, but this can be done as an outpatient. Disposition: Ready for discharge from infectious disease standpoint. He will need to contin ue levofloxacin for 14 days. Continue wound care. Follow up in the ID clinic as needed. Code Status: Full Code HARSHIL KRUGER DO 04/03/2016 onversion Transaction , Provider Unknown - 04/03/2016 6:43 AM PDT Progress Notes by Kari Salcido RN at 04/03/16642 Author: Kari Salcido RN Service: (none) Author Type: Registered Nurse Filed: 04/03/16642 Date of Service: 04/03/16642 Status: Signed Explosive Specialist: Kari Salcido RN (Registered Nurse) Patient alert and oriented X 4. Vital signs stable. Medicated for pain X 2. See MAR. No acu te changes from previous assessment. Visualized hourly. Will continue to monitor. Kari veliz onver philip Transaction, Provider Unknown - 04/02/2016 7:47 PM PDT Nurse Progress Note by Francisca Mcknight RN at 04/02/161946 Author: Francisca Mcknight RN Service: (none) Author Type: Registered Nurse Filed: 04/02/161948 Date of Service: 04/02/161946 Status: Signed Explosive Specialist: Francisca Mcknight RN (Registered Nurse) Pt continues to experience pain in LLE. Medial wound dressing was changed due to dressing g etting wet. No other acute changes from previous assessment. FRANCISCA MCKNIGHT RN race Alvarado MD - 04/02/2016 7:10 PM PDTFormatting of this note might be different from the or iginal. Progress Notes by Grace Alvarado MD at 04/02/161909 Author: Grace Alvarado MD Service: Hospitalist Author Type: Physician Filed: 04/02/161913 Date of Service: 04/02/161909 Status: Signed Explosive Specialist: Grace Alvarado MD (Physician) [facility] Service: Hospitalist Progress Note Teo Saleem Jr. 30 y.o. [id number] male No primary care provider on file. Hospital Day: LOS: 2 days Patient Summary And SUBJECTIVE : 30-year-old gentleman with past medical history o f ADHD and adjustment disorder who had a skin graft in 2011 present with left leg swelling a nd redness for which she had treatment with erythromycin, Cipro, intramuscular Rocephin and most recently IV Ancef and was sent to emergency department on 07/01 after he was found to santos ve increased swelling and redness of her left leg and on arrival and MRI off left leg was ne gative for osteomyelitis and showed cellulitis and thrombosis of her left leg swelling is pain on MRI but ultrasound left leg negative for deep vein thrombosis. Patient was remaining afebrile no leukocytosis and admitted to hospitalist service with left leg cellulitis and f surya outpatient antibody therapy started empirically on Ancef as he was MRSA negative and Dioni Corcoran from ID following. Patient left leg wound culture growing gram-negative rods and Ancef changed to cefepime by Dr. Kruger on [place] Today when I went to see the patient he is complaining of 9 out of 10 pain in her left leg which get worse with bending otherwise erythema and swelling on left leg is significantly b zaki , he denied any chest pain or shortness of breath no nausea no vomiting though he had a few loose stools nonbloody. Scheduled Medications cefepime 2 g Intravenous Q12H collagenase Topical Daily enoxaparin 1.5 mg/kg Subcutaneous Q24H sodium chloride 10 mL Intravenous Q8H Continuous Infusions PRN Medications acetaminophen OR acetaminophen, HYDROcodone-acetaminophen OR HYDROcodone-acetaminop hen, magnesium sulfate OR magnesium sulfate OR magnesium sulfate, ondansetron OR ondansetron, phosphorus OR sodium phosphate IVPB 20 mmol OR sodium phosphate IVPB 4 5 mmol, polyethylene glycol, potassium chloride OR potassium chloride OR potassium c hloride, sodium chloride 0.9 %, zolpidem Allergy: Allergies Allergen Reactions Septra [Sulfamethoxazole-Trimethoprim] Nausea and Vomiting and GI Bleed Silver Rash OBJECTIVE Vital Signs: BP 124/72 mmHg | Pulse 73 | Temp(Src) 97.3 F (36.3 C) (Oral) | Resp 16 | Ht 1.803 m (5' 11") | Wt 100.2 kg (220 lb 14.4 oz) | BMI 30.82 kg/m2 | SpO2 97% Temp: [97.3 F (36.3 C)-97.9 F (36.6 C)] 97.3 F (36.3 C) (04/02 1627) BP: (111-132)/(62-81) 124/72 mmHg (04/02 1627) Heart Rate: [62-77] 73 (04/02 1627) Resp: [16-18] 16 (04/02 1627) SpO2: [94 %-97 %] 97 % (04/02 1627) I&O Detailed Table: Intake/Output Summary (Last 24 hours) at 04/02/16 1910 Last data filed at 04/02/16 1824 Gross per 24 hour Intake 2019 ml Output 2850 ml Net -831 ml Hemodynamics Last 24hrs: Examination: Constitutional: Alert and oriented to person, place, and time. Appears well-developed and w ell-nourished. Cardiovascular: Normal rate, regular rhythm, normal heart sounds and intact distal pulses. Exam reveals no gallop and no friction rub. No murmur heard. Pulmonary/Chest: Effort normal and breath sounds normal. No stridor. No respiratory distres s. no wheezes. no rales. exhibits no tenderness. Abdominal: Soft. Bowel sounds are normal. exhibits no distension and no mass. There is no t enderness. There is no rebound and no guarding. Musculoskeletal: Normal range of motion.exhibits no tenderness. exhibits no edema. Neurological: Alert and oriented to person, place, and time. Has normal reflexes. display s normal reflexes. No cranial nerve deficit. Exhibits normal muscle tone. Coordination norm al. Skin: Left leg ulcer with very minimal erythema, no swelling but very tender to touch Psychiatric: Has a normal mood and affect. Behavior is normal. Judgment normal. Laboratory: Glucose: Results Procedure Component Value Units Date/Time Procalcitonin [[id number]] Collected: 04/02/16 0352 PROCALCITONIN <0.05 ng/mL Updated: 04/02/16 1259 CRP [[id number]] (Abnormal) Collected: 04/02/16 035 Specimen Information: Blood Updated: 04/02/16 1146 CRP 1.8 (H) mg/dL Wound culture [[id number]] Collected: 03/31/16 1419 Specimen Information: Wound from OTHR-w source desc (F6) Updated: 04/02/16 0947 Specimen Description OTHER CULTURE 3+ GRAM NEGATIVE RODS Blood Culture Set 1 [[id number]] Collected: 03/31/16 141 Specimen Information: Blood from Blood Updated: 04/02/16605 Specimen Description BLOOD CULTURE NO GROWTH 2 DAYS Result: Testing performed at [address] [address] Blood Culture Set 2 [[id number]] Collected: 03/31/16 142 Specimen Information: Blood from Blood Updated: 04/02/16605 Specimen Description BLOOD CULTURE NO GROWTH 2 DAYS Result: Testing performed at [address] [address] Magnesium [[id number]] Collected: 04/02/16351 Specimen Information: Blood Updated: 04/02/16 0536 MAGNESIUM 1.8 mg/dL Potassium [[id number]] Collected: 04/02/16351 Specimen Information: Blood Updated: 04/02/16 0536 POTASSIUM 3.9 mmol/L Phosphorus [[id number]] Collected: 04/02/16351 Specimen Information: Blood Updated: 04/02/16 0536 PHOSPHORUS 3.3 mg/dL CBC w/auto diff (reflex to manual) [[id number]] (Abnormal) Collected: 04/02/16351 Specimen Information: Blood Updated: 04/02/16 0503 WBC 5.76 K/uL RBC 5.17 M/uL HGB 13.7 g/dL HCT 40.7 % MCV 78.6 (L) fl MCH 26.6 (L) pg MCHC 33.8 g/dL RDW SD 34.1 (L) fl PLT 179 K/uL MPV 8.4 fl DIFF TYPE AUTOMATED NEUTROPHILS 46.29 % LYMPHOCYTES 37.48 % MONOCYTES 11.09 % EOSINOPHILS 4.22 % BASOPHILS 0.92 % NEUTROPHILS ABS 2.67 K/uL LYMPHOCYTES ABS 2.16 K/uL MONOCYTES ABS 0.64 K/uL EOSINOPHILS ABS 0.24 K/uL BASOPHILS ABS 0.05 K/uL C diff toxin by PCR (TAT 3 hr in house) [[id number]] Collected: 04/01/161735 Toxigenic C Difficile NEGATIVE Updated: 04/01/162000 027 NAP1 BI 027 NAP1 BI PRESUMPTIVE NEGATIVE C DIFF With Reflex to CLPCR [[id number]] (Abnormal) Collected: 04/01/161735 Specimen Information: Per Rectum Updated: 04/01/161912 GDH ANTIGEN POSITIVE (A) TOXIN A & B NEGATIVE C DIFF INTERPRETATION Result: Positive for C.difficile bacteria. Toxin not detected. Basic Metabolic Panel [[id number]] (Abnormal) Collected: 04/01/16345 Specimen Information: Blood Updated: 04/01/1640 SODIUM 139 mmol/L POTASSIUM 3.8 mmol/L CHLORIDE 107 mmol/L CO2 25 mmol/L ANION GAP AGAP 11 mmol/L GLUCOSE 105 (H) mg/dL BUN 16 mg/dL CREATININE 1.06 mg/dL BUN/CREAT 15 CALCIUM 8.5 mg/dL EGFR >60 mL/min/1.73m2 Magnesium [[id number]] Collected: 04/01/16345 Specimen Information: Blood Updated: 04/01/1640 MAGNESIUM 1.8 mg/dL Phosphorus [[id number]] Collected: 04/01/16345 Specimen Information: Blood Updated: 04/01/16 0540 PHOSPHORUS 3.3 mg/dL CRP [[id number]] (Abnormal) Collected: 04/01/16345 Specimen Information: Blood Updated: 04/01/1640 CRP 2.7 (H) mg/dL Glycohemoglobin A1C [[id number]] Collected: 04/01/16345 Specimen Information: Blood Updated: 04/01/16521 HEMOGLOBIN A1C 5.1 % ESTIMATED AVG GLUCOSE 100 mg/dL ESR [[id number]] Collected: 04/01/16345 Specimen Information: Blood Updated: 04/01/16 0520 ESR 3 mm/Hr TSH [[id number]] (Abnormal) Collected: 04/01/16345 Specimen Information: Blood Updated: 04/01/16 05 TSH 7.24 (H) uIU/mL CBC w/auto diff (reflex to manual) [[id number]] (Abnormal) Collected: 04/01/16345 Specimen Information: Blood Updated: 04/01/16 0510 WBC 5.85 K/uL RBC 4.98 M/uL HGB 13.0 (L) g/dL HCT 39.2 % MCV 78.7 (L) fl MCH 26.1 (L) pg MCHC 33.2 g/dL RDW SD 34.1 (L) fl PLT 183 K/uL MPV 8.5 fl DIFF TYPE AUTOMATED NEUTROPHILS 50.96 % LYMPHOCYTES 33.74 % MONOCYTES 10.27 % EOSINOPHILS 3.97 % BASOPHILS 1.06 % NEUTROPHILS ABS 2.98 K/uL LYMPHOCYTES ABS 1.97 K/uL MONOCYTES ABS 0.60 K/uL EOSINOPHILS ABS 0.23 K/uL BASOPHILS ABS 0.06 K/uL MRSA by PCR [[id number]] Collected: 03/31/16 141 Specimen Information: Nasopharyngeal from Nares(Nose) Updated: 03/31/16 1551 SOURCE NARES(NOSE) MRSA PCR NEGATIVE Comprehensive metabolic panel [[id number]] (Abnormal) Collected: 03/31/16 141 Specimen Information: Blood Updated: 03/31/16 1451 SODIUM 142 mmol/L POTASSIUM 4.0 mmol/L CHLORIDE 109 mmol/L CO2 26 mmol/L ANION GAP AGAP 11 mmol/L GLUCOSE 103 (H) mg/dL BUN 15 mg/dL CREATININE 1.3 mg/dL BUN/CREAT 11 CALCIUM 8.7 mg/dL TOTAL PROTEIN 7.1 g/dL Albumin 3.3 (L) g/dL GLOBULIN 3.9 g/dL A/G 0.8 (L) TBIL 0.2 mg/dL ALK PHOS 63 U/L AST 12 U/L ALT 11 U/L EGFR >60 mL/min/1.73m2 C-reactive protein [[id number]] (Abnormal) Collected: 03/31/16 141 Specimen Information: Blood Updated: 03/31/16 1451 CRP 4.6 (H) mg/dL Septic Lactic Acid [[id number]] Collected: 03/31/161414 LACTIC ACID 1.9 mmol/L Updated: 03/31/16 145 CBC with differential [[id number]] (Abnormal) Collected: 03/31/16 141 Specimen Information: Blood Updated: 03/31/16 1433 WBC 5.20 K/uL RBC 5.66 M/uL HGB 14.4 g/dL HCT 44.4 % MCV 78.5 (L) fl MCH 25.5 (L) pg MCHC 32.6 g/dL RDW SD 34.6 (L) fl PLT 205 K/uL MPV 8.2 fl DIFF TYPE AUTOMATED NEUTROPHILS 60.96 % LYMPHOCYTES 25.34 % MONOCYTES 9.61 % EOSINOPHILS 3.76 % BASOPHILS 0.33 % NEUTROPHILS ABS 3.17 K/uL LYMPHOCYTES ABS 1.32 K/uL MONOCYTES ABS 0.50 K/uL EOSINOPHILS ABS 0.20 K/uL BASOPHILS ABS 0.02 K/uL CBC: Lab Results Component Value Date WBC 5.76 04/02/2016 RBC 5.17 04/02/2016 HGB 13.7 04/02/2016 HCT 40.7 04/02/2016 MCV 78.6* 04/02/2016 MCH 26.6* 04/02/2016 MCHC 33.8 04/02/2016 RDW 34.1* 04/02/2016 PLT 179 04/02/2016 MPV 8.4 04/02/2016 DIFFTYPE AUTOMATED 04/02/2016 CMP: Lab Results Component Value Date NA 139 04/01/2016 K 3.9 04/02/2016 CL 107 04/01/2016 CO2 25 04/01/2016 ANIONGAP 11 04/01/2016 GLUF 105* 04/01/2016 BUN 16 04/01/2016 CREATININE 1.06 04/01/2016 BCR 15 04/01/2016 CA 8.5 04/01/2016 PROT 7.1 03/31/2016 ALB 3.3* 03/31/2016 GLOB 3.9 03/31/2016 BILITOT 0.2 03/31/2016 ALP 63 03/31/2016 AST 12 03/31/2016 ALT 11 03/31/2016 EGFR >60 04/01/2016 Magnesium: Lab Results Component Value Date MG 1.8 04/02/2016 Phosphorus: Lab Results Component Value Date PHOS 3.3 04/02/2016 PT/INR: No results found for: PROTIME, INR Last 3 Troponin: No results found for: TROPONINI ABG: No results found for: POCPH, POCPCO, POCPO2, POCHCO, POCTCO2, POCBD, BEART, POCSO2, P OCCMT X-ray Ankle Limited Left 04/01/2016 TEO SALEEM JR. 1985 XR ANKLE LIMITED LEFT 03/31/2016 7:10 PM IN DICATION: Joint pain COMPARISON: MRI dated 03/31/2016 TECHNIQUE: Left ankle series, 3 views 04/01/2016 FINDINGS/ IMPRESSION: 1. No acute fracture or malalignment. Ankle mortise is i ntact. No ankle joint effusion. 2. No lytic or sclerotic lesions in visualized bones. No pe riosteal reaction or cortical erosions to indicate acute osteoarthritis. 3. Mild soft tissu e swelling about ankle. Mri Tibia Fibula Left W Wo Contrast 03/31/2016 EXAM: Left Calf/Tibia MRI Without and With Contrast EXAM DATE: 03/31/2016 03:1 3 PM. CLINICAL HISTORY: Left lower leg infection. Evaluate for abscess. COMPARISON: None. TECHNIQUE: Multiplanar, multisequence T1-weighted and fluid-sensitive sequences of the calf /tibia before and after administration of intravenous contrast. IV contrast: 21 cc MultiHanc e. Other: None. FINDINGS: Bones: No fractures or subluxations. No marrow edema or abnormal enhancement. No bone lesions. Joint Spaces: Visualized portions of the ankle and knee join ts are unremarkable. Tendons: Where visualized, the Achilles and plantaris tendons are inta ct. There is occlusive thrombus within a soleus muscle vein. The thrombus within the vein m easures approximately 5.4 cm cranial caudal by 0.6 cm medial to lateral by 0.0.6 cm AP. Ther e is a mild amount of edema within the soleus muscle immediately adjacent to the thrombosed vein. The visualized tibial, peroneal, and popliteal veins appear patent. There is a small open cutaneous and subcutaneous wound at the anterior aspect of the mid lower leg. There is subcutaneous edema, swelling, and enhancement at the anterior and medial aspects of the lowe r leg. 03/31/2016 1. An approximately 5.4 x 0.6 x 0.6 cm occlusive thrombus within a soleus musc le vein. Mild amount of edema within the soleus muscle immediately adjacent to the thrombose d vein. The visualized tibial, peroneal, and popliteal veins appear patent. Consider further evaluation with a lower extremity Doppler ultrasound exam to further evaluate the left lowe r extremity deep veins. 2. Very small open cutaneous and subcutaneous wound at the anterior aspect of the mid lower leg. Subcutaneous edema, swelling, and enhancement at the anteromed ial aspects of the lower leg suggestive of cellulitis. No evidence of abscess. 3. No evidenc e of osteomyelitis. CRITICAL RESULT: The findings were discussed with Harshil López on 03/31, time 1535. [facility] MUSCULOSKELETAL RADIOLOGY SECTION Electronically signed by Lalito Funk MD on Mar 31 2016 3:36PM Referring Provider Line: [phone] ID: [id number] Us Lower Extremity Venous Left 03/31/2016 EXAM: LEFT LOWER EXTREMITY VENOUS ULTRASOUND EXAM DATE: 03/31/2016 04:06 PM. CLINICAL HISTORY: Left calf pain and redness. COMPARISON: None. TECHNIQUE: Real-time sonog raphic vascular imaging was performed by the rn review through the lower extremity utilizi ng both color-flow and Doppler spectral analysis. Multiple electronics parts sales representative static images were saved for review. FINDINGS: Common Femoral Vein (CFV): Normal. CFV-GSV Junction: Normal. Profunda Femoral Vein (PFV): Normal. Femoral Vein (FV) Prox: Normal. Femoral Vein (FV) Mid: Normal. Femoral Vein (FV) Dist: Normal. Popliteal Vein: Normal. Posterior Tibial Veins: Norm al. Peroneal Veins: Normal. Other: Subcutaneous edema noted in the region of redness. 03/31/2016 No evidence for deep venous thrombosis. [facility] Electronically signed by Wilbur Ramirez MD on Mar 31 2016 5:09PM Referring Provider Line: [phone] ID: [id number] PROBLEM LIST Principal Problem: Left leg cellulitis Active Problems: Non-healing wound of lower extremity--left, cervantes area Thrombus--left leg soleus vein ASSESSMENT & PLAN Left leg cellulitis with decrease in erythema and warmth though spool tender to touch wound culture growing gram-negative rods Plan discontinue Ancef , start on cefepime and appreciate Dr. Kruger input Nonhealing wound of lower extremity involving left cervantes area Plan a patient wound care input and management per them Thrombosis of her left leg soleus vein and no evidence of deep vein thrombosis on ultrasoun d Plan: I discussed case with Dr. Villalobos on 01 april who recommended to continue the pat ient on Lovenox 1.5 mg per KG once a day for 10 days to 2 weeks after which he should get an other ultrasound of her leg to rule out any deep vein thrombosis if negative then anticoagul ation can be discontinued and patient need to see Dr. Villalobos in 2 weeks I spent more than 25 minutes GRACE ALVARADO MD 04/02/2016 [place] Harshil Reddy DO - 0 04/02/2016 10:23 AM PDT Progress Notes by Harshil Kruger DO at 04/02/16 1023 Author: Harshil Kruger DO Service: (none) Author Type: Physician Filed: 04/02/16 1053 Date of Service: 04/02/16 1023 Status: Signed Explosive Specialist: Harshil Kruger DO (Physician) [facility] Service: Infectious Disease Progress Note Hospital Day: LOS: 2 days Post-Op Day: * No surgery found * SUBJECTIVE Patient Summary: 30 y.o. male with significant past medical history of ADHD, adjustm ent disorder, left cervantes skin graft in 2011 who presents with left leg swelling and redness. The patient has been undergoing treatment for cellulitis of the left leg at his [facility] over the past several weeks. Prior treatments have included erythromycin, Cipro, intramu scular Rocephin and most recently IV Ancef. The patient was sent to the emergency department on March 31 after he was found to have increasing swelling and redness of the left leg. Wor kup on arrival here included an MRI to assess for osteomyelitis which was reassuring in that regard, but did reveal a deep vein thrombosis with associated adjacent muscular edema. The patient has been started on anticoagulation for the deep vein thrombosis. He did not have an y fever or leukocytosis on admission, and was maintained on his prior Ancef. Wound culture shows gram-negative rods, antibiotics switched to cefepime on April 02. CC: Left leg pain Chart reviewed: No new events. Subjective The patient reports continued severe pain in the left leg, high sensitivity to light touch. He denies any fevers or chills. No nausea or vomiting. ROS No fever, chills sweats. No nausea, vomiting or diarrhea. No rashes or pruritis. No oral pa in. Scheduled Medications ceFAZolin 2 g Intravenous Q8H collagenase Topical Daily enoxaparin 1.5 mg/kg Subcutaneous Q24H sodium chloride 10 mL Intravenous Q8H Continuous Infusions PRN Medications acetaminophen OR acetaminophen, HYDROcodone-acetaminophen OR HYDROcodone-acetaminop hen, magnesium sulfate OR magnesium sulfate OR magnesium sulfate, ondansetron OR ondansetron, phosphorus OR sodium phosphate IVPB 20 mmol OR sodium phosphate IVPB 4 5 mmol, polyethylene glycol, potassium chloride OR potassium chloride OR potassium c hloride, sodium chloride 0.9 %, zolpidem OBJECTIVE Vital Signs: BP 132/70 mmHg | Pulse 76 | Temp(Src) 97.5 F (36.4 C) (Oral) | Resp 18 | Ht 1.803 m (5' 11") | Wt 100.2 kg (220 lb 14.4 oz) | BMI 30.82 kg/m2 | SpO2 95% Temp (24hrs), Av.6 F (36.4 C), Min:97.3 F (36.3 C), Max:97.9 F (36.6 C) Exam: Const: Vitals reviewed. No acute distress Skin: No rashes, no edema ENT: No thrush. Lungs: CTAB, no rales or wheezes Heart: RRR, no murmur Abd: soft, NT, + bowel sounds DATA CBC: Lab Results Component Value Date WBC 5.76 04/02/2016 RBC 5.17 04/02/2016 HGB 13.7 04/02/2016 HCT 40.7 04/02/2016 MCV 78.6* 04/02/2016 MCH 26.6* 04/02/2016 MCHC 33.8 04/02/2016 RDW 34.1* 04/02/2016 PLT 179 04/02/2016 MPV 8.4 04/02/2016 DIFFTYPE AUTOMATED 04/02/2016 CMP: Lab Results Component Value Date NA 139 04/01/2016 K 3.9 04/02/2016 CL 107 04/01/2016 CO2 25 04/01/2016 ANIONGAP 11 04/01/2016 GLUF 105* 04/01/2016 BUN 16 04/01/2016 CREATININE 1.06 04/01/2016 BCR 15 04/01/2016 CA 8.5 04/01/2016 PROT 7.1 03/31/2016 ALB 3.3* 03/31/2016 GLOB 3.9 03/31/2016 BILITOT 0.2 03/31/2016 ALP 63 03/31/2016 AST 12 03/31/2016 ALT 11 03/31/2016 EGFR >60 04/01/2016 Microbiology: Blood cultures negative 2. Wound culture collected on admission shows gram- negative rods, identification and susceptibility pending. PROBLEM LIST Principal Problem: Left leg cellulitis Active Problems: Non-healing wound of lower extremity--left, cervantes area Thrombus--left leg soleus vein ASSESSMENT & PLAN Left leg cellulitis (03/31/2016) The patient does not have significant ongoing cellulitis at the site of the ulcer. The eryt sheba in the medial calf is likely related to underlying thrombosis, with subsequent vascular congestion. This is associated with a sinus tract that likely leads down to muscle, does no t appear to be down to bone. MRI does not show any evidence of bone infection, muscle absces s. Wound culture shows gram-negative rods. I will replace Ancef with cefepime for now and mo nitor for continued improvement. Final flexion of antibiotic will depend on identification a nd susceptibility which I hope to have available by tomorrow. Non-healing wound of lower extremity--left, cervantes area (03/31/2016) Appreciate wound care attention to the ulcer and adjacent unrelated sinus tract. Thrombus--left leg soleus vein (03/31/2016) Anticoagulation per primary service. 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 Hyperesthesia of left lower extremity The patient has profound sensitivity to light touch in the entire lower extremity including the ankle and foot. There are no signs of infection in these areas. This is most likely flaca ropathic. He will need eventual neurology consultation to assess for peripheral neuropathy, but this can be done as an outpatient. Code Status: Full Code HARSHIL KRUGER DO 04/02/2016 onversion Transaction , Provider Unknown - 04/02/2016 6:56 AM PDT Nurse Progress Note by Sage Crawford RN at 04/02/1656 Author: Sage Crawford RN Service: (none) Author Type: Registered Nurse Filed: 04/02/16655 Date of Service: 04/02/16655 Status: Signed Explosive Specialist: Sage Crawford RN (Registered Nurse) Patient resting in bed, denies any concerns at this time. Given norco x3 for pain. Dressing to the left cervantes done. Hourly rounding done, assessment unchanged. Vital signs stable, will continue to monitor. onver philip Transaction, Provider Unknown - 04/01/2016 6:58 PM PDT Progress Notes by Kristyn Barrera RN at 04/01/161857 Author: Kristyn Barrera RN Service: (none) Author Type: Registered Nurse Filed: 04/01/161900 Date of Service: 04/01/161857 Status: Signed Explosive Specialist: Kristyn Barrera RN (Registered Nurse) VSS, afebrile, Pt resting in bed, Pt in forensic restraints. Restraints checked per protoco l and monitored by corrections staff. Pt provided stool sample, sent per MD order to lab for cdiff. Pt's stool rated a 5-6 on the [place] stool chart. Pt is not having watery liquid st ools. Pt had 1 BM noemí shift. Wound care saw pt, they report wound is tunneling. No other ac lbaine changes from previous assessment. IV saline locked.Will continue to monitor.KRISTYN BEAN RN Grace Heller MD - 04/01/2016 6:36 PM PDTFormatting of this note might be different from the or iginal. Progress Notes by Grace Alvarado MD at 04/01/161835 Author: Grace Alvarado MD Service: Hospitalist Author Type: Physician Filed: 04/01/161849 Date of Service: 04/01/161835 Status: Signed Explosive Specialist: Grace Alvarado MD (Physician) [facility] Service: Hospitalist Progress Note Teo Saleem . 30 y.o. [id number] male No primary care provider on file. Hospital Day: LOS: 1 day Patient Summary And SUBJECTIVE : 30-year-old gentleman with past medical history o f ADHD and adjustment disorder who had a skin graft in 2011 present with left leg swelling a nd redness for which she had treatment with erythromycin, Cipro, intramuscular Rocephin and most recently IV Ancef and was sent to emergency department on 07/01 after he was found to santos ve increased swelling and redness of her left leg and on arrival and MRI off left leg was ne gative for osteomyelitis and showed cellulitis and thrombosis of her left leg swelling is pain on MRI but ultrasound left leg negative for deep vein thrombosis. Patient was remaining afebrile no leukocytosis and admitted to hospitalist service with left leg cellulitis and f surya outpatient antibody therapy started empirically on Ancef as he was MRSA negative and [facility] ID following. Today when I went to see the patient he is complaining of 10 out of 10 pain in her left le g which get worse with bending otherwise denied any chest pain or shortness of breath no luis sea no vomiting though he had a few loose stools nonbloody. Scheduled Medications ceFAZolin 2 g Intravenous Q8H collagenase Topical Daily sodium chloride 10 mL Intravenous Q8H Continuous Infusions PRN Medications acetaminophen OR acetaminophen, HYDROcodone-acetaminophen OR HYDROcodone-acetaminop hen, magnesium sulfate OR magnesium sulfate OR magnesium sulfate, ondansetron OR ondansetron, phosphorus OR sodium phosphate IVPB 20 mmol OR sodium phosphate IVPB 4 5 mmol, polyethylene glycol, potassium chloride OR potassium chloride OR potassium c hloride, sodium chloride 0.9 %, zolpidem Allergy: Allergies Allergen Reactions Septra [Sulfamethoxazole-Trimethoprim] Nausea and Vomiting and GI Bleed Silver Rash OBJECTIVE Vital Signs: BP 121/72 mmHg | Pulse 70 | Temp(Src) 97.3 F (36.3 C) (Oral) | Resp 20 | Ht 1.803 m (5' 11") | Wt 100.2 kg (220 lb 14.4 oz) | BMI 30.82 kg/m2 | SpO2 96% Temp: [97.3 F (36.3 C)-97.8 F (36.6 C)] 97.3 F (36.3 C) (05/31 1636) BP: (113-127)/(64-72) 121/72 mmHg (04/01 1636) Heart Rate: [57-70] 70 (04/01 1636) Resp: [16-20] 20 (04/01 1636) SpO2: [96 %-98 %] 96 % (04/01 1636) I&O Detailed Table: Intake/Output Summary (Last 24 hours) at 04/01/16 1836 Last data filed at 04/01/16 1638 Gross per 24 hour Intake 3440.47 ml Output 1875 ml Net 1565.47 ml Hemodynamics Last 24hrs: Examination: Constitutional: Alert and oriented to person, place, and time. Appears well-developed and w ell-nourished. Cardiovascular: Normal rate, regular rhythm, normal heart sounds and intact distal pulses. Exam reveals no gallop and no friction rub. No murmur heard. Pulmonary/Chest: Effort normal and breath sounds normal. No stridor. No respiratory distres s. no wheezes. no rales. exhibits no tenderness. Abdominal: Soft. Bowel sounds are normal. exhibits no distension and no mass. There is no t enderness. There is no rebound and no guarding. Musculoskeletal: Normal range of motion.exhibits no tenderness. exhibits no edema. Neurological: Alert and oriented to person, place, and time. Has normal reflexes. display s normal reflexes. No cranial nerve deficit. Exhibits normal muscle tone. Coordination norm al. Skin: Left leg ulcer with surrounding erythema,tender to touch Psychiatric: Has a normal mood and affect. Behavior is normal. Judgment normal. Laboratory: Glucose: Results Procedure Component Value Units Date/Time C DIFF With Reflex to CLPCR [[id number]] Collected: 04/01/16 1736 Specimen Information: Per Rectum Updated: 04/01/16 1743 Wound culture [[id number]] Collected: 03/31/16 1419 Specimen Information: Wound from OTHR-w source desc (F6) Updated: 04/01/16 1355 Specimen Description OTHER CULTURE CULTURE IN PROGRESS Result: Testing performed at [facility], [address] [place] [address] Basic Metabolic Panel [[id number]] (Abnormal) Collected: 04/01/16 0346 Specimen Information: Blood Updated: 04/01/16539 SODIUM 139 mmol/L POTASSIUM 3.8 mmol/L CHLORIDE 107 mmol/L CO2 25 mmol/L ANION GAP AGAP 11 mmol/L GLUCOSE 105 (H) mg/dL BUN 16 mg/dL CREATININE 1.06 mg/dL BUN/CREAT 15 CALCIUM 8.5 mg/dL EGFR >60 mL/min/1.73m2 Magnesium [[id number]] Collected: 04/01/16345 Specimen Information: Blood Updated: 04/01/16539 MAGNESIUM 1.8 mg/dL Phosphorus [[id number]] Collected: 04/01/16345 Specimen Information: Blood Updated: 04/01/16539 PHOSPHORUS 3.3 mg/dL CRP [[id number]] (Abnormal) Collected: 04/01/16345 Specimen Information: Blood Updated: 04/01/16539 CRP 2.7 (H) mg/dL Glycohemoglobin A1C [[id number]] Collected: 04/01/16345 Specimen Information: Blood Updated: 04/01/16521 HEMOGLOBIN A1C 5.1 % ESTIMATED AVG GLUCOSE 100 mg/dL ESR [[id number]] Collected: 04/01/16345 Specimen Information: Blood Updated: 04/01/16519 ESR 3 mm/Hr TSH [[id number]] (Abnormal) Collected: 04/01/16345 Specimen Information: Blood Updated: 04/01/16519 TSH 7.24 (H) uIU/mL CBC w/auto diff (reflex to manual) [[id number]] (Abnormal) Collected: 04/01/16345 Specimen Information: Blood Updated: 04/01/16509 WBC 5.85 K/uL RBC 4.98 M/uL HGB 13.0 (L) g/dL HCT 39.2 % MCV 78.7 (L) fl MCH 26.1 (L) pg MCHC 33.2 g/dL RDW SD 34.1 (L) fl PLT 183 K/uL MPV 8.5 fl DIFF TYPE AUTOMATED NEUTROPHILS 50.96 % LYMPHOCYTES 33.74 % MONOCYTES 10.27 % EOSINOPHILS 3.97 % BASOPHILS 1.06 % NEUTROPHILS ABS 2.98 K/uL LYMPHOCYTES ABS 1.97 K/uL MONOCYTES ABS 0.60 K/uL EOSINOPHILS ABS 0.23 K/uL BASOPHILS ABS 0.06 K/uL Blood Culture Set 2 [[id number]] Collected: 03/31/161424 Specimen Information: Blood from Blood Updated: 03/31/16 1635 Blood Culture Set 1 [[id number]] Collected: 03/31/161414 Specimen Information: Blood from Blood Updated: 03/31/16 1635 MRSA by PCR [[id number]] Collected: 03/31/16 141 Specimen Information: Nasopharyngeal from Nares(Nose) Updated: 03/31/16 1551 SOURCE NARES(NOSE) MRSA PCR NEGATIVE Comprehensive metabolic panel [[id number]] (Abnormal) Collected: 03/31/161414 Specimen Information: Blood Updated: 03/31/16 1451 SODIUM 142 mmol/L POTASSIUM 4.0 mmol/L CHLORIDE 109 mmol/L CO2 26 mmol/L ANION GAP AGAP 11 mmol/L GLUCOSE 103 (H) mg/dL BUN 15 mg/dL CREATININE 1.3 mg/dL BUN/CREAT 11 CALCIUM 8.7 mg/dL TOTAL PROTEIN 7.1 g/dL Albumin 3.3 (L) g/dL GLOBULIN 3.9 g/dL A/G 0.8 (L) TBIL 0.2 mg/dL ALK PHOS 63 U/L AST 12 U/L ALT 11 U/L EGFR >60 mL/min/1.73m2 C-reactive protein [[id number]] (Abnormal) Collected: 03/31/161414 Specimen Information: Blood Updated: 03/31/16 1451 CRP 4.6 (H) mg/dL Septic Lactic Acid [[id number]] Collected: 03/31/161414 LACTIC ACID 1.9 mmol/L Updated: 03/31/16 145 CBC with differential [[id number]] (Abnormal) Collected: 03/31/161414 Specimen Information: Blood Updated: 03/31/16 1433 WBC 5.20 K/uL RBC 5.66 M/uL HGB 14.4 g/dL HCT 44.4 % MCV 78.5 (L) fl MCH 25.5 (L) pg MCHC 32.6 g/dL RDW SD 34.6 (L) fl PLT 205 K/uL MPV 8.2 fl DIFF TYPE AUTOMATED NEUTROPHILS 60.96 % LYMPHOCYTES 25.34 % MONOCYTES 9.61 % EOSINOPHILS 3.76 % BASOPHILS 0.33 % NEUTROPHILS ABS 3.17 K/uL LYMPHOCYTES ABS 1.32 K/uL MONOCYTES ABS 0.50 K/uL EOSINOPHILS ABS 0.20 K/uL BASOPHILS ABS 0.02 K/uL CBC: Lab Results Component Value Date WBC 5.85 04/01/2016 RBC 4.98 04/01/2016 HGB 13.0* 04/01/2016 HCT 39.2 04/01/2016 MCV 78.7* 04/01/2016 MCH 26.1* 04/01/2016 MCHC 33.2 04/01/2016 RDW 34.1* 04/01/2016 PLT 183 04/01/2016 MPV 8.5 04/01/2016 DIFFTYPE AUTOMATED 04/01/2016 CMP: Lab Results Component Value Date NA 139 04/01/2016 K 3.8 04/01/2016 CL 107 04/01/2016 CO2 25 04/01/2016 ANIONGAP 11 04/01/2016 GLUF 105* 04/01/2016 BUN 16 04/01/2016 CREATININE 1.06 04/01/2016 BCR 15 04/01/2016 CA 8.5 04/01/2016 PROT 7.1 03/31/2016 ALB 3.3* 03/31/2016 GLOB 3.9 03/31/2016 BILITOT 0.2 03/31/2016 ALP 63 03/31/2016 AST 12 03/31/2016 ALT 11 03/31/2016 EGFR >60 04/01/2016 Magnesium: Lab Results Component Value Date MG 1.8 04/01/2016 Phosphorus: Lab Results Component Value Date PHOS 3.3 04/01/2016 PT/INR: No results found for: PROTIME, INR Last 3 Troponin: No results found for: TROPONINI ABG: No results found for: POCPH, POCPCO, POCPO2, POCHCO, POCTCO2, POCBD, BEART, POCSO2, P OCCMT X-ray Ankle Limited Left 04/01/2016 TEO SALEEM JR. 1985 XR ANKLE LIMITED LEFT 03/31/2016 7:10 PM IN DICATION: Joint pain COMPARISON: MRI dated 03/31/2016 TECHNIQUE: Left ankle series, 3 views 04/01/2016 FINDINGS/ IMPRESSION: 1. No acute fracture or malalignment. Ankle mortise is i ntact. No ankle joint effusion. 2. No lytic or sclerotic lesions in visualized bones. No pe riosteal reaction or cortical erosions to indicate acute osteoarthritis. 3. Mild soft tissu e swelling about ankle. Mri Tibia Fibula Left W Wo Contrast 03/31/2016 EXAM: Left Calf/Tibia MRI Without and With Contrast EXAM DATE: 03/31/2016 03:1 3 PM. CLINICAL HISTORY: Left lower leg infection. Evaluate for abscess. COMPARISON: None. TECHNIQUE: Multiplanar, multisequence T1-weighted and fluid-sensitive sequences of the calf /tibia before and after administration of intravenous contrast. IV contrast: 21 cc MultiHanc e. Other: None. FINDINGS: Bones: No fractures or subluxations. No marrow edema or abnormal enhancement. No bone lesions. Joint Spaces: Visualized portions of the ankle and knee join ts are unremarkable. Tendons: Where visualized, the Achilles and plantaris tendons are inta ct. There is occlusive thrombus within a soleus muscle vein. The thrombus within the vein m easures approximately 5.4 cm cranial caudal by 0.6 cm medial to lateral by 0.0.6 cm AP. Ther e is a mild amount of edema within the soleus muscle immediately adjacent to the thrombosed vein. The visualized tibial, peroneal, and popliteal veins appear patent. There is a small open cutaneous and subcutaneous wound at the anterior aspect of the mid lower leg. There is subcutaneous edema, swelling, and enhancement at the anterior and medial aspects of the lowe r leg. 03/31/2016 1. An approximately 5.4 x 0.6 x 0.6 cm occlusive thrombus within a soleus musc le vein. Mild amount of edema within the soleus muscle immediately adjacent to the thrombose d vein. The visualized tibial, peroneal, and popliteal veins appear patent. Consider further evaluation with a lower extremity Doppler ultrasound exam to further evaluate the left lowe r extremity deep veins. 2. Very small open cutaneous and subcutaneous wound at the anterior aspect of the mid lower leg. Subcutaneous edema, swelling, and enhancement at the anteromed ial aspects of the lower leg suggestive of cellulitis. No evidence of abscess. 3. No evidenc e of osteomyelitis. CRITICAL RESULT: The findings were discussed with Harshil López on 03/31, time 1535. [facility] MUSCULOSKELETAL RADIOLOGY SECTION Electronically signed by Lalito Funk MD on Mar 31 2016 3:36PM Referring Provider Line: [phone] ID: [id number] Lower Extremity Venous Left 03/31/2016 EXAM: LEFT LOWER EXTREMITY VENOUS ULTRASOUND EXAM DATE: 03/31/2016 04:06 PM. CLINICAL HISTORY: Left calf pain and redness. COMPARISON: None. TECHNIQUE: Real-time sonog raphic vascular imaging was performed by the rn review through the lower extremity utilizi ng both color-flow and Doppler spectral analysis. Multiple electronics parts sales representative static images were saved for review. FINDINGS: Common Femoral Vein (CFV): Normal. CFV-GSV Junction: Normal. Profunda Femoral Vein (PFV): Normal. Femoral Vein (FV) Prox: Normal. Femoral Vein (FV) Mid: Normal. Femoral Vein (FV) Dist: Normal. Popliteal Vein: Normal. Posterior Tibial Veins: Norm al. Peroneal Veins: Normal. Other: Subcutaneous edema noted in the region of redness. 03/31/2016 No evidence for deep venous thrombosis. [facility] Electronically signed by Wilbur Ramirez MD on Mar 31 2016 5:09PM Referring Provider Line: [phone] ID: [id number] PROBLEM LIST Principal Problem: Left leg cellulitis Active Problems: Non-healing wound of lower extremity--left, cervantes area Thrombus--left leg soleus vein ASSESSMENT & PLAN Left leg cellulitis with decrease in erythema and warmth though spool tender to touch Plan continue the patient on Ancef and appreciate Dr. Kruger input Nonhealing wound of lower extremity involving left cervantes area Plan a patient wound care input and management per them Thrombosis of her left leg soleus vein and no evidence of deep vein thrombosis on ultrasoun d Plan: I discussed case with Dr. Villalobos who recommended to continue the patient on Love nox 1.5 mg per KG once a day for 10 days to 2 weeks after which he should get another ultras ound of her leg to rule out any deep vein thrombosis if negative then anticoagulation can be discontinued and patient need to see Dr. Villalobos in 2 weeks GRACE ALVARADO MD 04/01/2016 onversion Transactio n, Provider Unknown - 04/01/2016 10:38 AM PDT Case Management by Niurka Douglas RN at 04/01/16 1038 Author: Niurka Douglas RN Service: (none) Author Type: Registered Nurse Filed: 04/01/16 1039 Date of Service: 04/01/16 1038 Status: Signed Explosive Specialist: Niurka Douglas RN (Registered Nurse) Patient [facility]. The patient will return to that facility with his guards when he is medically stable. CM will continue to follow this patient for discharge needs, but do not anticipate any as h e is an inmate and the correctional facility will provide care after discharge. Judith Douglas. ALBERT CM onver philip Transaction, Provider Unknown - 04/01/2016 4:22 AM PDT Nurse Progress Note by Angelica Cooper RN at 04/01/16421 Author: Angelica Cooper RN Service: (none) Author Type: Registered Nurse Filed: 04/01/166 Date of Service: 04/01/16421 Status: Signed Explosive Specialist: Angelica Cooper RN (Registered Nurse) Pt resting in bed, did not sleep much despite two Ambien, [place] given X1 for Lt leg pain. V SS, pt oxygenating well on RA. All medications taken without difficulty. Nurse Jose C from [facility] updated on pt's plan of care. No acute changes to shift assessment. Will cont to monitor. Angelica Cooper RN onver philip Transaction, Provider Unknown - 03/31/2016 5:37 PM PDT Progress Notes by Erinn Marvin RPH at 03/31/161736 Author: Erinn Marvin RPH Service: (none) Author Type: Pharmacist Filed: 03/31/161736 Date of Service: 03/31/161736 Status: Signed Explosive Specialist: Erinn Marvin RPH (Pharmacist) Renal Dosing Monitoring: Teo Saleem Jr. 30 y.o. male Pharmacy dosing for renal function per Dr. Jeffrey Davis CREATININE: 1.3 (03/31/16 1415) Estimated creatinine clearance - 99.3 mL/min Plan per protocol: No medications need adjustment at this time. Pharmacy will continue to monitor changes in medication orders and renal function and will adjust accordingly. 03/31/2016 5:37 PM Pharmacist: Erinn Marvin docume nted in this encounter H&P Notes Jeffrey Davis MD - 03/31/2016 5:06 PM PDTFormatting of this note might be different f rom the original. H&P by Jeffrey Davis MD at 03/31/16 170 Author: Jeffrey Davis MD Service: Hospitalist Author Type: Physician Filed: 03/31/16 182 Date of Service: 03/31/161705 Status: Addendum Explosive Specialist: Jeffrey Davis MD (Physician) Related Notes: Original Note by Jeffrey Davis MD (Physician) filed at 03/31/16 181 [facility] Service: Hospitalist Admission History & Physical Pt: Teo Ronaldo Alicia Crews. AGE/SEX: 30 y.o. male ROOM: [address] [place] [address] PCP: No primary care provider on file. : 1985 TODAY'S DATE: 03/31/2016 Date of Admission: 03/31/2016 Chief Complaint: Leg Swelling History of Present Illness: The patient is a 30 y.o. male with significant past medical history of The below and also prior skin graft to the left anterior leg in the area where the present open wound is who pr esents with What is felt to be left leg cellulitis for which he has already been attempted to be treated with erythromycin, cipro, rocephin and now is on ancef. He presents a febril but reports he had a temp of 100.4 yesterday and up to 101 or 102 the day before. He had an MRI of his left leg showing suspected cellulitis and also incidental finding of a solus vei n clot that is occlusive. In the er they are checking an ultrasound to look for other clot not seen and have started lovenox. He also reports left ankle pain and denies any injury to the ankle. Denies other problems presently . Of note patient presents from [address] [place] [address]. PMHx: Past Medical History Diagnosis Date ADHD (attention deficit hyperactivity disorder) Adjustment disorder PSHx: Past Surgical History Procedure Laterality Date Skin graft Left 2011 left cervantes Unlisted procedure arthroscopy 1995, R knee Prior To admission Meds: Prior to Admission medications Medication Sig Start Date End Date Taking? Authorizing Provider ceFAZolin (ANCEF) 1 G injection Inject 1 g into the vein every 8 (eight) hours. 03/26/1604/03 Yes Historical Provider diflunisal (DOLOBID) 500 MG TABS Take 500 mg by mouth 2 (two) times daily. Yes Historical Provider FLUoxetine (PROZAC) 20 MG capsule Take 20 mg by mouth daily. Yes Historical Provider hydrOXYzine (ATARAX) 50 MG tablet Take 50-100 mg by mouth every 8 (eight) hours as needed f or Itching. Yes Historical Provider omeprazole (PRILOSEC) 20 MG capsule Take 20 mg by mouth every morning before breakfast. Y es Historical Provider acetaminophen (TYLENOL) 325 MG tablet Take 650 mg by mouth every 6 (six) hours as needed fo r Pain or Fever. Historical Provider sodium chloride (OCEAN) 0.65 % nasal 1 spray by Each Nare route 4 (four) times daily. Hi storical Provider triamcinolone (KENALOG) 0.025 % ointment Apply topically 2 (two) times daily. Apply to aff ected area of penis once daily after showers Historical Provider meloxicam (MOBIC) 15 MG tablet Take 15 mg by mouth daily. 03/31/16 Historical Provider Medications scheduled: ceFAZolin 2 g Intravenous Q8H [START ON 04/01/2016] enoxaparin 1 mg/kg Subcutaneous Q12H sodium chloride 10 mL Intravenous Q8H Allergies: Allergies Allergen Reactions Septra [Sulfamethoxazole-Trimethoprim] Nausea and Vomiting and GI Bleed Silver Rash Family Hx: Family History Problem Relation Age of Onset Diabetes type II Other Social Hx: History Social History Marital Status: Single Spouse Name: N/A Number of Children: N/A Years of Education: N/A Occupational History Not on file. Social History Main Topics Smoking status: Never Smoker Smokeless tobacco: Not on file Alcohol Use: No Drug Use: No Sexual Activity: Not on file Other Topics Concern Not on file Social History Narrative Review of Symptoms: Only Highlighted are positive and remainder are negative: Constitutional: subjective Fever, chills, diaphoresis, activity change, appetite change, fa tigue and unexpected weight change. HENT: Hearing loss, ear pain, nosebleeds, congestion, facial swelling, rhinorrhea, neck rodri n, neck stiffness, dental problem, tinnitus and ear discharge. Eyes: Photophobia, pain, discharge, redness, itching and visual disturbance. Respiratory: Apnea, cough, chest tightness, shortness of breath and wheezing. Cardiovascular: Chest pain, palpitations and leg swelling. Gastrointestinal: Nausea, vomiting, abdominal pain, diarrhea, constipation, blood in stool, abdominal distention, anal bleeding and rectal pain. Genitourinary: Dysuria, frequency, hematuria, flank pain, difficulty urinating and dyspareu luba. Musculoskeletal: Back pain, joint swelling, arthralgias and gait problem. Skin: Color change, pallor, rash and wound. Neurological: Dizziness, tremors, seizures, syncope, weakness, light-headedness, numbness a nd headaches. Hematological: Adenopathy. Does not bruise/bleed easily. Psychiatric/Behavioral: Suicidal ideas, hallucinations, behavioral problems, confusion and agitation. Objective: Vital Signs: BP 130/60 mmHg | Pulse 74 | Temp(Src) 97.8 F (36.6 C) (Oral) | Resp 16 | Ht 1.803 m (5' 11") | Wt 100.2 kg (220 lb 14.4 oz) | BMI 30.82 kg/m2 | SpO2 96% Physical Exam: Constitutional: Oriented to person, place, and time. appears well-developed and well-nouris hed. HEENT: Head: Normocephalic and atraumatic. Nose: Nose normal. Mouth/Throat: Oropharynx is clear and moist. Eyes: Conjunctivae and EOM are normal. Pupils are equal, round, and reactive to light. Righ t eye exhibits no discharge. Left eye exhibits no discharge. No scleral icterus. Neck: Normal range of motion. Neck supple. No JVD present. No tracheal deviation present. N o thyromegaly present. no cervical adenopathy. Cardiovascular: Normal rate, regular rhythm, normal heart sounds with S1 and S2, and intact distal pulses. Exam reveals no gallop and no friction rub. No murmur heard. Pulmonary/Chest: Effort normal and breath sounds normal. No stridor. No respiratory distres s. no wheezes. no rales. exhibits no tenderness. Abdominal: Soft. Bowel sounds are normal. exhibits no distension and no mass. There is no t enderness. There is no rebound and no guarding. Extremities/Musculoskeletal:right leg and foot without pathology, left lower leg with an ap prox [id number] area of healed old scar consistent with past skin graft and in the center there is an ulcerated chronic wound appearing lesion approx 2cm diameter. There is a 0.3 cm, medi al ulcer in between the cervantes and the calf medial weeping serous fluid and trace pitting devonte a PT left and erythema on the left calf, tenderness to palpation of the left ankle Neurological: Alert and oriented to person, place, and time. Displays normal reflexes. No cranial nerve deficit. Exhibits normal muscle tone. Coordination normal. Skin: Skin is warm and dry. No rash noted. No erythema. No pallor. Psychiatric: Has a normal mood and affect. Behavior is normal. Judgment normal. Data: Recent Labs Lab 03/31/16 1415 WBC 5.20 HGB 14.4 HCT 44.4 PLT 205 NEUTOPHILPCT 60.96 MONOPCT 9.61 Recent Labs Lab 03/31/16 1415 NA 142 K 4.0 CL 109 CO2 26 BUN 15 CREATININE 1.3 PROT 7.1 BILITOT 0.2 ALT 11 AST 12 Phosphorus: No results found for: PHOS Invalid input(s): LABALBU No results for input(s): MG in the last 168 hours. No results for input(s): AMYLASE in the last 168 hours. No results for input(s): PHART, PO2ART, NAW0HEI, O1PBUPZB, BEART in the last 168 hours. No results for input(s): APTT, INR, PTT in the last 168 hours. No results for input(s): TSH, T3FREE, FREET4 in the last 168 hours. No results for input(s): CKTOTAL, TROPONINI, TROPONINT, CKMBINDEX in the last 168 hours. Results Procedure Component Value Units Date/Time Blood Culture Set 2 [[id number]] Collected: 03/31/16 142 Specimen Information: Blood from Blood Updated: 03/31/16 1635 Blood Culture Set 1 [[id number]] Collected: 03/31/16 1415 Specimen Information: Blood from Blood Updated: 03/31/16 1635 Wound culture [[id number]] Collected: 03/31/16 1419 Specimen Information: Wound from OTHR-w source desc (F6) Updated: 03/31/16 1633 MRSA by PCR [[id number]] Collected: 03/31/16 1418 Specimen Information: Nasopharyngeal from Nares(Nose) Updated: 03/31/16 1551 SOURCE NARES(NOSE) MRSA PCR NEGATIVE IMAGING: Mri Tibia Fibula Left W Wo Contrast 03/31/2016 1. An approximately 5.4 x 0.6 x 0.6 cm occlusive thrombus within a soleus musc le vein. Mild amount of edema within the soleus muscle immediately adjacent to the thrombose d vein. The visualized tibial, peroneal, and popliteal veins appear patent. Consider further evaluation with a lower extremity Doppler ultrasound exam to further evaluate the left lowe r extremity deep veins. 2. Very small open cutaneous and subcutaneous wound at the anterior aspect of the mid lower leg. Subcutaneous edema, swelling, and enhancement at the anteromed ial aspects of the lower leg suggestive of cellulitis. No evidence of abscess. 3. No evidenc e of osteomyelitis. CRITICAL RESULT: The findings were discussed with Harshil López on 03/31, time 1535. RADI MUSCULOSKELETAL RADIOLOGY SECTION Electronically signed by Lalito Funk MD on Mar 31 2016 3:36PM Referring Provider Line: [phone] ID: [id number] Problem List: Principal Problem: Left leg cellulitis Active Problems: Non-healing wound of lower extremity--left, cervantes area Thrombus--left leg soleus vein Assessment and Plan: Left leg cellulitis (03/31/2016) Assessment: given the number of antbx he has been on recently I spoke with ID and given t hat he is afebrile and the wbc is normal at this time it seemed reasonable to c/w the ancef he currently is on and get another wound cx and see if a change in antbx is needed. i review ed the cx results from the wound at the facility and there was one showing skin rodolfo/strep, and others showing staph aureus. I will ask for the redness to be outlined and we can see how he does for now. Dr Kruger will see him tomorrow. Of note the greatest redness seems to be on the posterior aspect to the calf. Non-healing wound of lower extremity--left, cervantes area (03/31/2016) Assessment: the anterior leg wound is in an area of prior skin graft and it seems from th e appearance it may need ongoing aggressive wound care. Will ask for a wound care consult Thrombus--left leg soleus vein (03/31/2016) Assessment: this was seen on MRI and ultrasound is being accomplished to see if any other clot is seen. I discussed with radiology if this is a deep vein and it is questionable as it does drain into a deep vein but is not usually evalauted on ultrasound. Await the result of the ultrasound to see if any other clot seen and empirically cover with lovenox for now. Left ankle pain: no injury reported, will check xray. Patient's old records and labs were reviewed as available in detail and summarized when nee ded. Code Status: Full Code Primary Care Physician: No primary care provider on file. JEFFREY DAVIS MD 03/31/2016 5:59 PM Dictation software, Cordium, may have been used which may contain error for similar sounding words even after review. Personal communication requested for any clarification. Portions of this chart may have been copied from previous notes for continuity of care. documented in this encounter Consult Notes Conversion Transaction, Provider Unknown - 04/01/2016 12:28 PM PDTFormatting of this note m ight be different from the original. Consults by Ronel Mcdermott RN at 04/01/16 1228 Author: Ronel Mcdermott RN Service: Wound/Ostomy Care Author Type: Registered Nurse Filed: 04/01/16 1233 Date of Service: 04/01/16 1228 Status: Signed Explosive Specialist: Ronel Mcdermott RN (Registered Nurse) Consult Orders: 1. Wound Consult [[id number]] ordered by Jeffrey Davis MD at 03/31/16 1610 [facility] Service: Wound Care Consult Note Hospital Day: LOS: 1 day Post-Op Day: * No surgery found * SUBJECTIVE Patient Summary: Wound care consulted for wounds on left lower leg OBJECTIVE Wound #1: Classification: abrasion Location:left lower cervantes Drainage Amount:Scant Drainage Type:Bloody Wound Odor After Wound is Cleaned:None Periwound Skin:purple from scarring Wound Size:3 (cm) Length, 2 (cm) Width and 0.3 (cm) Depth Tunneling: none Undermining: none Wound Bed:Moist, Red and Yellow Wound Exam:open, necrotic and tendon exposed Wound Infection:none noted Wound # 2: Classification: cellulitis with draining wound Location:left lower medial calf Drainage Amount:Moderate Drainage Type:Sero-Sanguinous Wound Odor After Wound is Cleaned:None Periwound Skin:Edema and Tender/Painful Wound Size:0.5 (cm) Length, 0.5 (cm) Width and 5 (cm) Depth Tunneling: none Undermining: none Wound Bed:Moist and Red Wound Exam:open and tender Wound Infection: none noted PROBLEM LIST Principal Problem: Left leg cellulitis Active Problems: Non-healing wound of lower extremity--left, cervantes area Thrombus--left leg soleus vein ASSESSMENT & PLAN visual inspection cleansing with wound cleansing solution Skin prep around wounds. Filled small wound with Aquacel ribbon. Pt states he has reactions to Ag so none was used. Covered with small bordered foam. Recommend changing every 3 days. Cervantes wound covered with wound gel and stratasorb dressing to keep moist. Recommend santyl daily to debride adherent yellow slough and keep tendon moist. Recommend covering with Stratasorb dressing or just gauze and tape. Change daily. Thank you for this consult. Please call if there are any additional questions. Ronel Mcdermott RN 12:28 PM 04/01/2016 Harshil Goff DO - 04/01/2016 11:26 AM PDTFormatting of this note might be different from the chinmay gore. Consult* by Harshil Kruger DO at 04/01/16 1126 Author: Harshil Kruger DO Service: (none) Author Type: Physician Filed: 04/01/16 2192 Date of Service: 04/01/161125 Status: Signed Explosive Specialist: Harshil Kruger DO (Physician) [facility] Service: Infectious Disease Initial Consult Note Date of Admission: 03/31/2016 Reason for Consultation: Cellulitis, chronic wound Requesting Physician: Leighton [place] History Obtained From: patient, chart review CHIEF COMPLAINT: Left leg swelling and redness HISTORY OF PRESENT ILLNESS The patient is 30 y.o. male with significant past medical history of ADHD, adjustment disor gurpreet, left cervantes skin graft in 2011 who presents with left leg swelling and redness. The patie nt has been undergoing treatment for cellulitis of the left leg at his detention facility over the past several weeks. Prior treatments have included erythromycin, Cipro, intramuscular Ro cephin and most recently IV Ancef. The patient was sent to the emergency department on March 04 after he was found to have increasing swelling and redness of the left leg. Workup on verónica sandoval here included an MRI to assess for osteomyelitis which was reassuring in that regard, but did reveal a deep vein thrombosis with associated adjacent muscular edema. The patient h as been started on anticoagulation for the deep vein thrombosis. There was concern about the possibility of antibiotic failure. It is noted that cultures collected from the wound at the [facility] have shown skin rodolfo and occasionally methicillin susceptible staph aureus. At t he time of admission, the patient was afebrile and did not have any gross cytosis. Ancef was continued. The patient reports that she had a vacuum dressing on the left leg wound in 2011, but not m ore recently. The most recent ulceration began after a slight abrasion of his leg against a stool. He recalls having fevers as high as 102 prior to starting his current antibiotics. He does not believe that he has had anything higher than 100.4 since starting IV Ancef on the . There has also been a small wound that opened up medial to the ulcer about 3 weeks ago. This has been assessed by wound care and was found to be a sinus tract that is 5 cm de ep, now being packed with Aquacel. The patient believes that the redness in that area had on ly begun a few weeks ago. REVIEW OF SYSTEMS Review of Systems Complete review of the constitutional, ENT, cardiovascular, respiratory, gastrointestinal, genitourinary, integumentary, musculoskeletal, psychiatric, neurologic, heme/lymphatic syste ms is entirely negative except as described above in the history of the present illness. Past Medical History Diagnosis Date ADHD (attention deficit hyperactivity disorder) Adjustment disorder Past Surgical History Procedure Laterality Date Skin graft Left 2012 left cervantes Unlisted procedure arthroscopy 1995, R knee Allergies Allergen Reactions Septra [Sulfamethoxazole-Trimethoprim] Nausea and Vomiting and GI Bleed Silver Rash Prescriptions prior to admission Medication Sig Dispense Refill Last Dose ceFAZolin (ANCEF) 1 G injection Inject 1 g into the vein every 8 (eight) hours. 2015 at 0800 diflunisal (DOLOBID) 500 MG TABS Take 500 mg by mouth 2 (two) times daily. 03/31/2016 at AM FLUoxetine (PROZAC) 20 MG capsule Take 20 mg by mouth daily. 03/31/2016 at AM hydrOXYzine (ATARAX) 50 MG tablet Take 50-100 mg by mouth every 8 (eight) hours as need ed for Itching. 03/31/2016 at 1200 omeprazole (PRILOSEC) 20 MG capsule Take 20 mg by mouth every morning before breakfast. 03/31/2016 at AM acetaminophen (TYLENOL) 325 MG tablet Take 650 mg by mouth every 6 (six) hours as neede d for Pain or Fever. Unknown at Unknown time sodium chloride (OCEAN) 0.65 % nasal 1 spray by Each Nare route 4 (four) times daily. Unknown at Unknown time triamcinolone (KENALOG) 0.025 % ointment Apply topically 2 (two) times daily. Apply to affected area of penis once daily after showers Unknown at Unknown time Scheduled Medications ceFAZolin 2 g Intravenous Q8H sodium chloride 10 mL Intravenous Q8H Continuous Infusions lactated ringers 110 mL/hr at 04/01/16 0520 PRN Medications acetaminophen OR acetaminophen, HYDROcodone-acetaminophen OR HYDROcodone-acetaminop hen, magnesium sulfate OR magnesium sulfate OR magnesium sulfate, ondansetron OR ondansetron, phosphorus OR sodium phosphate IVPB 20 mmol OR sodium phosphate IVPB 4 5 mmol, polyethylene glycol, potassium chloride OR potassium chloride OR potassium c hloride, sodium chloride 0.9 %, zolpidem Family History Problem Relation Age of Onset Diabetes type II Other History Social History Marital Status: Single Spouse Name: N/A Number of Children: N/A Years of Education: N/A Occupational History Not on file. Social History Main Topics Smoking status: Never Smoker Smokeless tobacco: Not on file Alcohol Use: No Drug Use: No Sexual Activity: Not on file Other Topics Concern Not on file Social History Narrative PHYSICAL EXAM Vital Signs: BP 114/66 mmHg | Pulse 57 | Temp(Src) 97.5 F (36.4 C) (Oral) | Resp 18 | Ht 1.803 m (5' 11") | Wt 100.2 kg (220 lb 14.4 oz) | BMI 30.82 kg/m2 | SpO2 96% Temp (24hrs), Av.6 F (36.4 C), Min:97.4 F (36.3 C), Max:97.8 F (36.6 C) Physical Exam Constitutional: The patient is in no acute distress and appears stated age. Vital signs wer e reviewed as above Head: Normocephalic and atraumatic ENT: Mucous membranes are moist. There is no evidence of thrush. No pharyngeal exudates. Neck: Supple without thyromegaly or meningismus. Heart: Regular rate and rhythm without murmurs gallops or rubs Lungs: Clear to auscultation bilaterally without wheezes rales or rhonchi. Abdomen: Soft and nontender, bowel sounds are present, there is no organomegaly or mass Musculoskeletal: There is no gross deformity or active arthritis. Neuro: There are no gross deficits of motor or sensory function Skin: There are no rashes of clinical significance. Left anterior cervantes ulcer has no surroun ding erythema. Previous skin graft appears well taken with the exception of the nickel-sized lesion at its center. Margins are unremarkable. 5 cm sinus tract is several centimeters med ial to the ulcer and does not indicate with it. The sinus tract directs itself toward the ramakrishna dy of the calf muscles. Extremities: There is no clubbing, cyanosis, or peripheral edema. Psychiatric: The patient attends the examiner without difficulty and affect is appropriate. DATA CBC: Lab Results Component Value Date WBC 5.85 04/01/2016 RBC 4.98 04/01/2016 HGB 13.0* 04/01/2016 HCT 39.2 04/01/2016 MCV 78.7* 04/01/2016 MCH 26.1* 04/01/2016 MCHC 33.2 04/01/2016 RDW 34.1* 04/01/2016 PLT 183 04/01/2016 MPV 8.5 04/01/2016 DIFFTYPE AUTOMATED 04/01/2016 CMP: Lab Results Component Value Date NA 139 04/01/2016 K 3.8 04/01/2016 CL 107 04/01/2016 CO2 25 04/01/2016 ANIONGAP 11 04/01/2016 GLUF 105* 04/01/2016 BUN 16 04/01/2016 CREATININE 1.06 04/01/2016 BCR 15 04/01/2016 CA 8.5 04/01/2016 PROT 7.1 03/31/2016 ALB 3.3* 03/31/2016 GLOB 3.9 03/31/2016 BILITOT 0.2 03/31/2016 ALP 63 03/31/2016 AST 12 03/31/2016 ALT 11 03/31/2016 EGFR >60 04/01/2016 Microbiology: Blood cultures negative 2 so far. MRSA screen negative. Wound culture pendi ng. Medical imaging: Plain film of the left leg was viewed in PACS and does not show any eviden ce of fracture or dislocation. No bony erosions to my view. Etiology reports as follows: X-ray Ankle Limited Left 04/01/2016 FINDINGS/ IMPRESSION: 1. No acute fracture or malalignment. Ankle mortise is i ntact. No ankle joint effusion. 2. No lytic or sclerotic lesions in visualized bones. No pe riosteal reaction or cortical erosions to indicate acute osteoarthritis. 3. Mild soft tissu e swelling about ankle. Mri Tibia Fibula Left W Wo Contrast 03/31/2016 1. An approximately 5.4 x 0.6 x 0.6 cm occlusive thrombus within a soleus musc le vein. Mild amount of edema within the soleus muscle immediately adjacent to the thrombose d vein. The visualized tibial, peroneal, and popliteal veins appear patent. Consider further evaluation with a lower extremity Doppler ultrasound exam to further evaluate the left lowe r extremity deep veins. 2. Very small open cutaneous and subcutaneous wound at the anterior aspect of the mid lower leg. Subcutaneous edema, swelling, and enhancement at the anteromed ial aspects of the lower leg suggestive of cellulitis. No evidence of abscess. 3. No evidenc e of osteomyelitis. CRITICAL RESULT: The findings were discussed with Harshil López on 03/31, time 1535. [facility] MUSCULOSKELETAL RADIOLOGY SECTION Electronically signed by Lalito Funk MD on Mar 31 2016 3:36PM Referring Provider Line: [phone] ID: [id number] Us Lower Extremity Venous Left 03/31/2016 No evidence for deep venous thrombosis. [facility] Electronically signed by Wilbur Ramirez MD on Mar 31 2016 5:09PM Referring Provider Line: [phone] ID: [id number] PROBLEM LIST Principal Problem: Left leg cellulitis Active Problems: Non-healing wound of lower extremity--left, cervantes area Thrombus--left leg soleus vein ASSESSMENT & PLAN Patient Active Hospital Problem List: Left leg cellulitis (03/31/2016) The patient does not have significant ongoing cellulitis at the site of the ulcer. The er ythema in the medial calf is likely related to underlying thrombosis, with subsequent vascul ar congestion. This is associated with a sinus tract that likely leads down to muscle, does not appear to be down to bone. MRI does not show any evidence of bone infection, muscle absc ess. There are inflammatory and edematous changes in the muscle, thought to be secondary to soleus thrombosis, although infectious myositis is a possibility. At this time, the patient has a normal white blood cell count and no fever with Ancef, which will be continued. Durati on of therapy will depend on clinical response and inflammatory markers which appear to be i mproving on his current regimen. Non-healing wound of lower extremity--left, cervantes area (03/31/2016) Appreciate wound care attention to the ulcer and adjacent unrelated sinus tract. Thrombus--left leg soleus vein (03/31/2016) Anticoagulation per primary service. This is likely the front end loader driver of his ongoing redness and swelling in the medial calf. Hyperesthesia of left lower extremity The patient has profound sensitivity to light touch in the entire lower extremity includi ng the ankle and foot. There are no signs of infection in these areas. This is most likely n europathic. He will need eventual neurology consultation to assess for peripheral neuropathy , but this can be done as an outpatient. Code Status: Full Code Primary Care Physician: No primary care provider on file. Thank you for allowing me to participate in the care of this patient. I will continue to follow with you. HARSHIL KRUGER DO 04/01/2016 documented in this enc ounter ED Notes Conversion Transaction, Provider Unknown - 03/31/2016 4:47 PM PDTFormatting of this note m ight be different from the original. ED Notes by Preeti Shea RN at 03/31/16 1647 Author: Preeti Shea RN Service: (none) Author Type: Registered Nurse Filed: 03/31/16 1647 Date of Service: 03/31/16 164 Status: Signed Explosive Specialist: Preeti Shea RN (Registered Nurse) Remains in sono. Preeti Shea RN 03/31/16 164 onver philip Transaction, Provider Unknown - 03/31/2016 3:28 PM PDT ED Notes by Jean Carlos Miller RN at 03/31/16 1528 Author: Jean Carlos Miller RN Service: (none) Author Type: Registered Nurse Filed: 03/31/16 1528 Date of Service: 03/31/16 1528 Status: Signed Explosive Specialist: Jean Carlos Miller RN (Registered Nurse) Pt returned from MRI Jean Carlos Miller RN 03/31/16 1528 onver philip Transaction, Provider Unknown - 03/31/2016 3:08 PM PDT ED Notes by Preeti Shea RN at 03/31/16 1508 Author: Preeti Shea RN Service: (none) Author Type: Registered Nurse Filed: 03/31/16 1508 Date of Service: 03/31/16 1508 Status: Signed Explosive Specialist: Preeti Shea RN (Registered Nurse) Pt remains MRI. Preeti Shea RN 03/31/16 1508 Harshil Curtis MD - 03/31/2016 2:05 PM PDTFormatting of this note might be different from the o riginal. ED Provider Notes by Harshil López MD at 03/31/16 6249 Author: Harshil López MD Service: (none) Author Type: Physician Filed: 03/31/16 7224 Date of Service: 03/31/16 1406 Status: Signed Explosive Specialist: Harshil López MD (Physician) [facility] Department of Emergency Medicine Provider 03/31/16 1159 Pre-arrival Provider Pre-arrival Provider Other(Comment) [facility] Provider Name nurse glez for dr pacheco. Pertinent History and Concerns leg infection, failed multiple courses of abx, small wound initially, got second wound, now worse. no fever presently, has had one. Current Reported Vital Signs 102/63, 74, 16, 98.2, 94% RA ED Pre-arrival Provider to Provider 03/31/2016 Pre-arrival Provider Other(Comment) Provider Name nurse glez for dr pacheco. Pertinent History and Concerns leg infection, failed multiple courses of abx, small wound i nitially, got second wound, now worse. no fever presently, has had one. Current Reported Vital Signs 102/63, 74, 16, 98.2, 94% RA History of Present Illness Patient Identification Teo Saleme Jr. is a 30 y.o. male. Patient information was obtained from patient. History/Exam limitations: none. Patient presented to the Emergency Department by: Mail Distributor Complaint Chief Complaint Patient presents with Leg Swelling pt has swelling to left leg, has had fevers. pt incarcerated. taking meds "every 8 hours" The patient complains of left lower leg infection. Onset of symptoms was several months ago , with a worsening course since that time. The symptoms are described to be of severe sever ity. The patient describes the quality and location of the symptoms as the following: infec tion left lower leg, started with a scrape to cervantes, now infection deep in left calf and lowe r leg, with drainage and pain. The patient also complains of no improvement with antibiotic s. Care prior to arrival consisted of cipro, ceftriaxone, and now IV ancef every 8hours, wit h no relief. PCP: No primary care provider on file. Past Medical History Diagnosis Date ADHD (attention deficit hyperactivity disorder) Adjustment disorder History reviewed. No pertinent past surgical history. Prior to Admission medications Medication Sig Start Date End Date Taking? Authorizing Provider meloxicam (MOBIC) 15 MG tablet Take 15 mg by mouth daily. Historical Provider triamcinolone (KENALOG) 0.025 % ointment Apply topically 2 (two) times daily. Historica l Provider Allergies Allergen Reactions Septra [Sulfamethoxazole-Trimethoprim] Nausea and Vomiting and GI Bleed Silver Rash History Social History Marital Status: Single Spouse Name: N/A Number of Children: N/A Years of Education: N/A Occupational History Not on file. Social History Main Topics Smoking status: Never Smoker Smokeless tobacco: Not on file Alcohol Use: No Drug Use: No Sexual Activity: Not on file Other Topics Concern Not on file Social History Narrative Family History Problem Relation Age of Onset Diabetes type II Other Review of Systems Constitutional: Negative for: fever, chills, fatigue, sweats or weight loss Eyes: Negative for: decreased vision or irritated eyes Nose: Negative for: nosebleed Throat: Negative for: mouth sores Cardiovascular/Respiratory: Negative for: chest pain, shortness of breath, cough Gastrointestinal: Negative for: abdominal pain, vomiting, diarrhea, black or bloody stools Genitourinary: Negative for: dysuria, hematuria, urinary problems Musculoskeletal: Negative for: myalgias and arthralgias Skin: Negative for: laceration or lesion Neuro and psych: Negative for: fainting, head injury, seizure Endocrine/Heme/Lymph: Negative for: swollen lymph nodes, easy bruising All systems reviewed and otherwise negative Physical Exam BP 138/83 mmHg | Pulse 86 | Temp(Src) 97.8 F (36.6 C) | Resp 16 | Wt 108.863 kg (240 lb ) | SpO2 95% Vital signs reviewed and normal Pulse Oximetry interpretation: Normal General: Alert, in no apparent distress Eyes: Normal inspection, pupils equal and round, non-icteric ENT: Ears normal Nose normal Pharynx normal Neck: Normal inspection Supple No lymphadenopathy No meningismus Cardiovascular: Rate and rhythm normal No murmurs Respiratory: Breath sounds normal bilaterally Abdomen: Soft, non-tender, non-distended No guarding or rebound Extremiites; Left lower leg, anterior deep ulceration, with secondary drianage site that lo oks like fistula tract, Tenderness, swelling and erythema to calf and lower leg Back: Normal inspection Skin: Color normal Warm and dry No rash Neuro: No motor deficit No sensory deficit No confusion Medical Decision Making and Emergency Department Course Lower leg cellulitis with ulceration, possible fistula, deep tissue infeciton or abscess or osteo, will order labs and MRI of lower leg. Recent cultures growing Staph Aureus, he has been on ancef, not improving. ED Department Course 3:35. Discussed MRI results with radiologist, he has apparent thrombus in soleus vein, wit h cellulitis, no abscess or osteomyelitis. 3:45. Hospitalist consult requested. Relevant history and workup of the case discussed wi th the hospitalist television engineer and they will evaluate patient in the emergency department for ad mission. Records Reviewed Old medical records. Laboratory Evaluation Labs Reviewed CBC W/AUTO DIFF (REFLEX TO MANUAL) - Abnormal; Notable for the following: MCV 78.5 (*) MCH 25.5 (*) RDW SD 34.6 (*) All other components within normal limits COMPREHENSIVE METABOLIC PANEL - Abnormal; Notable for the following: GLUCOSE 103 (*) Albumin 3.3 (*) A/G 0.8 (*) All other components within normal limits C-REACTIVE PROTEIN - Abnormal; Notable for the following: CRP 4.6 (*) All other components within normal limits BLOOD CULTURE, SET 1 BLOOD CULTURE, SET 2 WOUND CULTURE MRSA BY PCR [facility] SEPTIC LACTIC ACID Results Procedure Component Value Units Date/Time Comprehensive metabolic panel [[id number]] (Abnormal) Collected: 03/31/161414 Specimen Information: Blood Updated: 03/31/161450 SODIUM 142 mmol/L POTASSIUM 4.0 mmol/L CHLORIDE 109 mmol/L CO2 26 mmol/L ANION GAP AGAP 11 mmol/L GLUCOSE 103 (H) mg/dL BUN 15 mg/dL CREATININE 1.3 mg/dL BUN/CREAT 11 CALCIUM 8.7 mg/dL TOTAL PROTEIN 7.1 g/dL Albumin 3.3 (L) g/dL GLOBULIN 3.9 g/dL A/G 0.8 (L) TBIL 0.2 mg/dL ALK PHOS 63 U/L AST 12 U/L ALT 11 U/L EGFR >60 mL/min/1.73m2 C-reactive protein [[id number]] (Abnormal) Collected: 03/31/161414 Specimen Information: Blood Updated: 03/31/161450 CRP 4.6 (H) mg/dL Septic Lactic Acid [[id number]] Collected: 03/31/161414 LACTIC ACID 1.9 mmol/L Updated: 03/31/161450 Blood Culture Set 2 [[id number]] Collected: 03/31/161424 Specimen Information: Blood from Blood Updated: 03/31/161435 CBC with differential [[id number]] (Abnormal) Collected: 03/31/161414 Specimen Information: Blood Updated: 03/31/161432 WBC 5.20 K/uL RBC 5.66 M/uL HGB 14.4 g/dL HCT 44.4 % MCV 78.5 (L) fl MCH 25.5 (L) pg MCHC 32.6 g/dL RDW SD 34.6 (L) fl PLT 205 K/uL MPV 8.2 fl DIFF TYPE AUTOMATED NEUTROPHILS 60.96 % LYMPHOCYTES 25.34 % MONOCYTES 9.61 % EOSINOPHILS 3.76 % BASOPHILS 0.33 % NEUTROPHILS ABS 3.17 K/uL LYMPHOCYTES ABS 1.32 K/uL MONOCYTES ABS 0.50 K/uL EOSINOPHILS ABS 0.20 K/uL BASOPHILS ABS 0.02 K/uL Blood Culture Set 1 [[id number]] Collected: 03/31/161414 Specimen Information: Blood from Blood Updated: 03/31/161428 Wound culture [[id number]] Collected: 03/31/161418 Specimen Information: Wound from OTHR-w source desc (F6) Updated: 03/31/161427 MRSA by PCR [[id number]] Collected: 03/31/161417 Specimen Information: Nasopharyngeal from Nares(Nose) Updated: 03/31/161426 Available Labs reviewed and interpreted by me. Radiology Evaluation Imaging Results MRI tibia fibula left w wo contrast (Preliminary result) Result time: 03/31/16 15:36:15 Procedure changed from MRI tibia fibula left with contrast Preliminary result by Rad Results In Uli (03/31/16 15:36:15) Impression: 1. An approximately 5.4 x 0.6 x 0.6 cm occlusive thrombus within a soleus muscle vein. Mild amount of edema within the soleus muscle immediately adjacent to the thrombosed vein. The v isualized tibial, peroneal, and popliteal veins appear patent. Consider further evaluation w ith a lower extremity Doppler ultrasound exam to further evaluate the left lower extremity d eep veins. 2. Very small open cutaneous and subcutaneous wound at the anterior aspect of the mid lower leg. Subcutaneous edema, swelling, and enhancement at the anteromedial aspects of the lower leg suggestive of cellulitis. No evidence of abscess. 3. No evidence of osteomyelitis. CRITICAL RESULT: The findings were discussed with Harshil López on 03/31/2016, time 1535. [facility] Read by Lalito Funk MD on Mar 31 2016 3:36PM Available radiology studies reviewed and interpreted contemporaneously by me. ED Diagnoses Final diagnoses Cellulitis of left lower leg Lower leg DVT (deep venous thromboembolism), acute, left (HCC) Disposition: ED Disposition Admit/Observation Bed request special needs: None Diagnosis?: cellulitis left lower leg failed outpatient treatment, DVT left lower leg Procedures Additional Documentation Procedures Harshil López MD 03/31/16 1703 documented in this e ncounter Plan of [...] | | | | | [place] [address] | | | | | | [phone] | | | | | | | | +--------+---------+ + + + documented as of this encounter Procedures + +--------+ + + + | Procedure Name | Priori | Date/Time | Associated Diagnosis | Comments | | | ty | | | | + +--------+ + + + | EXTERNAL LAB: CBC | Routin | 04/03/2016 | | Results for this | | | e | 3:46 AM | | procedure are in the | | | | PDT | | results section. | + +--------+ + + + | POTASSIUM | Routin | 04/03/2016 | | Results for this | | | e | 3:46 AM | | procedure are in the | | | | PDT | | results section. | + +--------+ + + + | PHOSPHORUS | Routin | 04/03/2016 | | Results for this | | | e | 3:46 AM | | procedure are in the | | | | PDT | | results section. | + +--------+ + + + | MAGNESIUM | Routin | 04/03/2016 | | Results for this | | | e | 3:46 AM | | procedure are in the | | | | PDT | | results section. | + +--------+ + + + | EXTERNAL LAB: CBC | Routin | 04/02/2016 | | Results for this | | | e | 3:52 AM | | procedure are in the | | | | PDT | | results section. | + +--------+ + + + | PROCALCITONIN, SERUM | Routin | 04/02/2016 | | Results for this | | | e | 3:52 AM | | procedure are in the | | | | PDT | | results section. | + +--------+ + + + | C-REACTIVE PROTEIN | Routin | 04/02/2016 | | Results for this | | | e | 3:52 AM | | procedure are in the | | | | PDT | | results section. | + +--------+ + + + | POTASSIUM | Routin | 04/02/2016 | | Results for this | | | e | 3:52 AM | | procedure are in the | | | | PDT | | results section. | + +--------+ + + + | PHOSPHORUS | Routin | 04/02/2016 | | Results for this | | | e | 3:52 AM | | procedure are in the | | | | PDT | | results section. | + +--------+ + + + | MAGNESIUM | Routin | 04/02/2016 | | Results for this | | | e | 3:52 AM | | procedure are in the | | | | PDT | | results section. | + +--------+ + + + | HISTORICAL | Timed | 04/01/2016 | | Results for this | | MICROBIOLOGY RESULT | | 5:36 PM | | procedure are in the | | | | PDT | | results section. | + +--------+ + + + | HISTORICAL | Routin | 04/01/2016 | | Results for this | | MICROBIOLOGY RESULT | e | 5:36 PM | | procedure are in the | | | | PDT | | results section. | + +--------+ + + + | EXTERNAL LAB: CBC | Routin | 04/01/2016 | | Results for this | | | e | 3:46 AM | | procedure are in the | | | | PDT | | results section. | + +--------+ + + + | SEDIMENTATION RATE, | Routin | 04/01/2016 | | Results for this | | AUTOMATED | e | 3:46 AM | | procedure are in the | | | | PDT | | results section. | + +--------+ + + + | C-REACTIVE PROTEIN | Routin | 04/01/2016 | | Results for this | | | e | 3:46 AM | | procedure are in the | | | | PDT | | results section. | + +--------+ + + + | TSH | Routin | 04/01/2016 | | Results for this | | | e | 3:46 AM | | procedure are in the | | | | PDT | | results section. | + +--------+ + + + | PHOSPHORUS | Routin | 04/01/2016 | | Results for this | | | e | 3:46 AM | | procedure are in the | | | | PDT | | results section. | + +--------+ + + + | MAGNESIUM | Routin | 04/01/2016 | | Results for this | | | e | 3:46 AM | | procedure are in the | | | | PDT | | results section. | + +--------+ + + + | HEMOGLOBIN A1C | Routin | 04/01/2016 | | Results for this | | | e | 3:46 AM | | procedure are in the | | | | PDT | | results section. | + +--------+ + + + | BASIC METABOLIC | Routin | 04/01/2016 | | Results for this | | PANEL | e | 3:46 AM | | procedure are in the | | | | PDT | | results section. | + +--------+ + + + | XR ANKLE LEFT 1 VW | Routin | 03/31/2016 | | Results for this | | LIMITED | e | 7:10 PM | | procedure are in the | | | | PDT | | results section. | + +--------+ + + + | VAS LOWER EXTREMITY | Routin | 03/31/2016 | | Results for this | | VENOUS LEFT | e | 4:49 PM | | procedure are in the | | | | PDT | | results section. | + +--------+ + + + | MRI TIBIA FIBULA | Routin | 03/31/2016 | | Results for this | | LEFT W WO CONTRAST | e | 3:11 PM | | procedure are in the | | | | PDT | | results section. | + +--------+ + + + | CULTURE, BLOOD, 2ND | STAT | 03/31/2016 | | Results for this | | SPECIMEN (NON-ORD) | | 2:25 PM | | procedure are in the | | | | PDT | | results section. | + +--------+ + + + | CULTURE, WOUND, | Timed | 03/31/2016 | | Results for this | | SMEAR, W/ANAEROBE | | 2:19 PM | | procedure are in the | | | | PDT | | results section. | + +--------+ + + + | MRSA NAAT | Timed | 03/31/2016 | | Results for this | | | | 2:18 PM | | procedure are in the | | | | PDT | | results section. | + +--------+ + + + | EXTERNAL LAB: CBC | Routin | 03/31/2016 | | Results for this | | | e | 2:15 PM | | procedure are in the | | | | PDT | | results section. | + +--------+ + + + | CULTURE, BLOOD | STAT | 03/31/2016 | | Results for this | | | | 2:15 PM | | procedure are in the | | | | PDT | | results section. | + +--------+ + + + | C-REACTIVE PROTEIN | Routin | 03/31/2016 | | Results for this | | | e | 2:15 PM | | procedure are in the | | | | PDT | | results section. | + +--------+ + + + | LACTIC ACID | Routin | 03/31/2016 | | Results for this | | | e | 2:15 PM | | procedure are in the | | | | PDT | | results section. | + +--------+ + + + | COMPREHENSIVE | Routin | 03/31/2016 | | Results for this | | METABOLIC PANEL | e | 2:15 PM | | procedure are in the | | | | PDT | | results section. | + +--------+ + + + documented in this encounter Results External Lab: NANCY (04/03/2016 3:46 AM PDT) + + + + + + | Component | Value | Ref Range | Performed | Pathologist | | | | | At | Signature | + + + + + + | WBC | 5.55Comment: Testing | 3.80 - 11.00 | EXTERNAL | | | | performed at [facility], [address] | K/uL | LAB | | | | [address], | | | | | | [place] [address] | | | | + + + + + + | Non- | 5.42Comment: Testing | 4.20 - 5.70 | EXTERNAL | | | Red Blood | performed at [facility], [address] | M/uL | LAB | | | Cells | [address], | | | | | Counted | [place] [address] | | | | + + + + + + | Hemoglobin | 14.3Comment: Testing | 13.2 - 17.0 | EXTERNAL | | | | performed at [facility], [address] | g/dL | LAB | | | | [address], | | | | | | [place] [address] | | | | + + + + + + | Hematocrit, | 42.6Comment: Testing | 39.0 - 50.0 % | EXTERNAL | | | POC | performed at [facility], [address] | | LAB | | | | [address], | | | | | | [place] [address] | | | | + + + + + + | MCV | 78.6 (L)Comment: Testing | 80.0 - 100.0 fl | EXTERNAL | | | | performed at [facility], [address] | | LAB | | | | [address], | | | | | | [place] [address] | | | | + + + + + + | MCH | 26.4 (L)Comment: Testing | 27.0 - 34.0 pg | EXTERNAL | | | | performed at [facility], [address] | | LAB | | | | [address], | | | | | | [place] [address] | | | | + + + + + + | MCHC | 33.5Comment: Testing | 32.0 - 35.5 | EXTERNAL | | | | performed at [facility], [address] | g/dL | LAB | | | | [address], | | | | | | [place] [address] | | | | + + + + + + | RDW-CV | 34.1 (L)Comment: Testing | 37 - 53 fl | EXTERNAL | | | | performed at [facility], [address] | | LAB | | | | [address], | | | | | | [place] [address] | | | | + + + + + + | Platelet | 203Comment: Testing | 150 - 400 K/uL | EXTERNAL | | | Count | performed at [facility], [address] | | LAB | | | Plasma | [address], | | | | | | [place] [address] | | | | + + + + + + | MPV | 8.3Comment: Testing | fl | EXTERNAL | | | | performed at [facility], [address] | | LAB | | | | [address], | | | | | | [place] [address] | | | | + + + + + + | Differentia | AUTOMATEDComment: | | EXTERNAL | | | l Type | Testing performed at | | LAB | | | | [facility], [address] | | | | | | [place] | | | | | | [address] | | | | + + + + + + | % Segmented | 47.60Comment: Testing | % | EXTERNAL | | | | performed at [facility], [address] | | LAB | | | Neutrophils | [address], | | | | | | [place] [address] | | | | + + + + + + | % | 35.54Comment: Testing | % | EXTERNAL | | | Lymphocytes | performed at [facility], [address] | | LAB | | | [address], | | | | | | [place] [address] | | | | + + + + + + | % Monocytes | 10.82Comment: Testing | % | EXTERNAL | | | | performed at [facility], [address] | | LAB | | | | [address], | | | | | | [place] [address] | | | | + + + + + + | % | 4.86Comment: Testing | % | EXTERNAL | | | Eosinophils | performed at [facility], [address] | | LAB | | | | [address], | | | | | | [place] [address] | | | | + + + + + + | % Basophils | 1.18Comment: Testing | % | EXTERNAL | | | | performed at [facility], [address] | | LAB | | | | [address], | | | | | | [place] [address] | | | | + + + + + + | Absolute | 2.64Comment: Testing | 1.90 - 7.40 | EXTERNAL | | | Segmented | performed at [facility], [address] | K/uL | LAB | | | Neutrophils | [address], | | | | | | [place] [address] | | | | + + + + + + | Absolute | 1.97Comment: Testing | 1.00 - 3.90 | EXTERNAL | | | Lymphocytes | performed at [facility], [address] | K/uL | LAB | | | | [address], | | | | | | [place] [address] | | | | + + + + + + | Absolute | 0.60Comment: Testing | 0.00 - 0.80 | EXTERNAL | | | Monocytes | performed at [facility], [address] | K/uL | LAB | | | | [address], | | | | | | [place] [address] | | | | + + + + + + | Absolute | 0.27Comment: Testing | 0.00 - 0.50 | EXTERNAL | | | Eosinophils | performed at [facility], [address] | K/uL | LAB | | | | [address], | | | | | | [place] [address] | | | | + + + + + + | Absolute | 0.07Comment: Testing | 0.00 - 0.10 | EXTERNAL | | | Basophils | performed at [facility], [address] | K/uL | LAB | | | | [address], | | | | | | [place] [address] | | | | + + + + + + + + | Specimen | + + | Blood specimen | | (specimen) | + + + +---------+ + + | Performing | Address | City/State/Zipcode | Phone Number | | Organization | | | | + +---------+ + + | EXTERNAL LAB | | | | + +---------+ + + Potassium (04/03/2016 3:46 AM PDT) + + + + + + | Component | Value | Ref Range | Performed | Pathologist | | | | | At | Signature | + + + + + + | K | 4.1Comment: Testing | 3.5 - 4.9 | EXTERNAL | | | | performed at [facility], [address] | mmol/L | LAB | | | | [address], | | | | | | [place] [address] | | | | + + + + + + + + | Specimen | + + | Blood specimen | | (specimen) | + + + +---------+ + + | Performing | Address | City/State/Zipcode | Phone Number | | Organization | | | | + +---------+ + + | EXTERNAL LAB | | | | + +---------+ + + Phosphorus (04/03/2016 3:46 AM PDT) + + + + + + | Component | Value | Ref Range | Performed | Pathologist | | | | | At | Signature | + + + + + + | PHOSPHORUS | 3.2Comment: Testing | 2.3 - 4.8 mg/dL | EXTERNAL | | | | performed at [facility], [address] | | LAB | | | | [address], | | | | | | [place] [address] | | | | + + + + + + + + | Specimen | + + | Blood specimen | | (specimen) | + + + +---------+ + + | Performing | Address | City/State/Zipcode | Phone Number | | Organization | | | | + +---------+ + + | EXTERNAL LAB | | | | + +---------+ + + Magnesium (04/03/2016 3:46 AM PDT) + + + + + + | Component | Value | Ref Range | Performed | Pathologist | | | | | At | Signature | + + + + + + | Magnesium | 1.9Comment: Testing | 1.7 - 2.4 mg/dL | EXTERNAL | | | | performed at [facility], [address] | | LAB | | | | [address], | | | | | | [place] [address] | | | | + + + + + + + + | Specimen | + + | Blood specimen | | (specimen) | + + + +---------+ + + | Performing | Address | City/State/Zipcode | Phone Number | | Organization | | | | + +---------+ + + | EXTERNAL LAB | | | | + +---------+ + + Procalcitonin (04/02/2016 3:52 AM PDT) + + + + + + | Component | Value | Ref Range | Performed | Pathologist | | | | | At | Signature | + + + + + + | PROCALCITON | <0.05Comment: | ng/mL | EXTERNAL | | | IN | INTERPRETIVE | | LAB | | | | INFORMATION: | | | | | | PROCALCITONIN PCT <= | | | | | | 0.5 ng/mL: Low risk | | | | | | for progression to | | | | | | severe systemic | | | | | | bacterial infection | | | | | | (severe sepsis/septic | | | | | | shock). Does not | | | | | | exclude an infection, | | | | | | because localized | | | | | | infections may be | | | | | | associated with such low | | | | | | levels. If PCT is | | | | | | measured very early | | | | | | after bacterial | | | | | | challenge (usually <6 | | | | | | hours), results may | | | | | | still be low and | | | | | | should re-assess PCT | | | | | | 6-24 hours later. PCT | | | | | | >0.5 and <= 2 ng/mL: | | | | | | Moderate risk for | | | | | | progression to severe | | | | | | systemic infection | | | | | | (severe sepsis/septic | | | | | | shock). Other | | | | | | conditions are known | | | | | | to elevate PCT, patient | | | | | | should be closely | | | | | | monitored both | | | | | | clinically and by | | | | | | re-assessing PCT | | | | | | within 6-24 hours. PCT > | | | | | | 2 ng/mL: High | | | | | | likelihood for | | | | | | progression to severe | | | | | | systemic bacterial | | | | | | infection (severe | | | | | | sepsis/septic shock). | | | | | | PCT >= 10 ng/mL: | | | | | | High likelihood of | | | | | | severe sepsis or septic | | | | | | shock.Testing performed | | | | | | at [facility];[address] [place] [address] | | | | | | [facility];[place] [address] | | | | + + + + + + + + | Specimen | + + | | + + + +---------+ + + | Performing | Address | City/State/Zipcode | Phone Number | | Organization | | | | + +---------+ + + | EXTERNAL LAB | | | | + +---------+ + + External Lab: CBC (04/02/2016 3:52 AM PDT) + + + + + + | Component | Value | Ref Range | Performed | Pathologist | | | | | At | Signature | + + + + + + | WBC | 5.76Comment: Testing | 3.80 - 11.00 | EXTERNAL | | | | performed at [facility], [address] | K/uL | LAB | | | | [address], | | | | | | [place] [address] | | | | + + + + + + | Non- | 5.17Comment: Testing | 4.20 - 5.70 | EXTERNAL | | | Red Blood | performed at [facility], [address] | M/uL | LAB | | | Cells | [address], | | | | | Counted | [place] [address] | | | | + + + + + + | Hemoglobin | 13.7Comment: Testing | 13.2 - 17.0 | EXTERNAL | | | | performed at [facility], [address] | g/dL | LAB | | | | [address], | | | | | | [place] [address] | | | | + + + + + + | Hematocrit, | 40.7Comment: Testing | 39.0 - 50.0 % | EXTERNAL | | | POC | performed at [facility], [address] | | LAB | | | | [address], | | | | | | [place] [address] | | | | + + + + + + | MCV | 78.6 (L)Comment: Testing | 80.0 - 100.0 fl | EXTERNAL | | | | performed at [facility], [address] | | LAB | | | | [address], | | | | | | [place] [address] | | | | + + + + + + | MCH | 26.6 (L)Comment: Testing | 27.0 - 34.0 pg | EXTERNAL | | | | performed at [facility], [address] | | LAB | | | | [address], | | | | | | [place] [address] | | | | + + + + + + | MCHC | 33.8Comment: Testing | 32.0 - 35.5 | EXTERNAL | | | | performed at [facility], [address] | g/dL | LAB | | | | [address], | | | | | | [place] [address] | | | | + + + + + + | RDW-CV | 34.1 (L)Comment: Testing | 37 - 53 fl | EXTERNAL | | | | performed at [facility], [address] | | LAB | | | | [address], | | | | | | [place] [address] | | | | + + + + + + | Platelet | 179Comment: Testing | 150 - 400 K/uL | EXTERNAL | | | Count | performed at [facility], [address] | | LAB | | | Plasma | [address], | | | | | | [place] [address] | | | | + + + + + + | MPV | 8.4Comment: Testing | fl | EXTERNAL | | | | performed at [facility], [address] | | LAB | | | | [address], | | | | | | [place] [address] | | | | + + + + + + | Differentia | AUTOMATEDComment: | | EXTERNAL | | | l Type | Testing performed at | | LAB | | | | [facility], [address] | | | | | | [place] | | | | | | [address] | | | | + + + + + + | % Segmented | 46.29Comment: Testing | % | EXTERNAL | | | | performed at [facility], [address] | | LAB | | | Neutrophils | [address], | | | | | | [place] [address] | | | | + + + + + + | % | 37.48Comment: Testing | % | EXTERNAL | | | Lymphocytes | performed at [facility], [address] | | LAB | | | | [address], | | | | | | [place] [address] | | | | + + + + + + | % Monocytes | 11.09Comment: Testing | % | EXTERNAL | | | | performed at [facility], [address] | | LAB | | | | [address], | | | | | | [place] [address] | | | | + + + + + + | % | 4.22Comment: Testing | % | EXTERNAL | | | Eosinophils | performed at [facility], [address] | | LAB | | | | [address], | | | | | | [place] [address] | | | | + + + + + + | % Basophils | 0.92Comment: Testing | % | EXTERNAL | | | | performed at [facility], [address] | | LAB | | | | [address], | | | | | | [place] [address] | | | | + + + + + + | Absolute | 2.67Comment: Testing | 1.90 - 7.40 | EXTERNAL | | | Segmented | performed at [facility], [address] | K/uL | LAB | | | Neutrophils | [address], | | | | | | [place] [address] | | | | + + + + + + | Absolute | 2.16Comment: Testing | 1.00 - 3.90 | EXTERNAL | | | Lymphocytes | performed at [facility], [address] | K/uL | LAB | | | | [address], | | | | | | [place] [address] | | | | + + + + + + | Absolute | 0.64Comment: Testing | 0.00 - 0.80 | EXTERNAL | | | Monocytes | performed at [facility], [address] | K/uL | LAB | | | | [address], | | | | | | [place] [address] | | | | + + + + + + | Absolute | 0.24Comment: Testing | 0.00 - 0.50 | EXTERNAL | | | Eosinophils | performed at [facility], [address] | K/uL | LAB | | | | [address], | | | | | | [place] [address] | | | | + + + + + + | Absolute | 0.05Comment: Testing | 0.00 - 0.10 | EXTERNAL | | | Basophils | performed at [facility], [address] | K/uL | LAB | | | | [address], | | | | | | [place] [address] | | | | + + + + + + + + | Specimen | + + | Blood specimen | | (specimen) | + + + +---------+ + + | Performing | Address | City/State/Zipcode | Phone Number | | Organization | | | | + +---------+ + + | EXTERNAL LAB | | | | + +---------+ + + C-Reactive Protein (04/02/2016 3:52 AM PDT) + + + + + + | Component | Value | Ref Range | Performed | Pathologist | | | | | At | Signature | + + + + + + | CRP | 1.8 (H)Comment: Testing | mg/dL | EXTERNAL | | | | performed at [facility], [address] | | LAB | | | | [address], | | | | | | [place] [address] | | | | + + + + + + + + | Specimen | + + | Blood specimen | | (specimen) | + + + +---------+ + + | Performing | Address | City/State/Zipcode | Phone Number | | Organization | | | | + +---------+ + + | EXTERNAL LAB | | | | + +---------+ + + Potassium (04/02/2016 3:52 AM PDT) + + + + + + | Component | Value | Ref Range | Performed | Pathologist | | | | | At | Signature | + + + + + + | K | 3.9Comment: Testing | 3.5 - 4.9 | EXTERNAL | | | | performed at [facility], [address] | mmol/L | LAB | | | | [address], | | | | | | [place] [address] | | | | + + + + + + + + | Specimen | + + | Blood specimen | | (specimen) | + + + +---------+ + + | Performing | Address | City/State/Zipcode | Phone Number | | Organization | | | | + +---------+ + + | EXTERNAL LAB | | | | + +---------+ + + Phosphorus (04/02/2016 3:52 AM PDT) + + + + + + | Component | Value | Ref Range | Performed | Pathologist | | | | | At | Signature | + + + + + + | PHOSPHORUS | 3.3Comment: Testing | 2.3 - 4.8 mg/dL | EXTERNAL | | | | performed at [facility], [address] | | LAB | | | | [address], | | | | | | [place] [address] | | | | + + + + + + + + | Specimen | + + | Blood specimen | | (specimen) | + + + +---------+ + + | Performing | Address | City/State/Zipcode | Phone Number | | Organization | | | | + +---------+ + + | EXTERNAL LAB | | | | + +---------+ + + Magnesium (04/02/2016 3:52 AM PDT) + + + + + + | Component | Value | Ref Range | Performed | Pathologist | | | | | At | Signature | + + + + + + | Magnesium | 1.8Comment: Testing | 1.7 - 2.4 mg/dL | EXTERNAL | | | | performed at [facility], [address] | | LAB | | | | [address], | | | | | | [place] [address] | | | | + + + + + + + + | Specimen | + + | Blood specimen | | (specimen) | + + + +---------+ + + | Performing | Address | City/State/Zipcode | Phone Number | | Organization | | | | + +---------+ + + | EXTERNAL LAB | | | | + +---------+ + + HISTORICAL MICROBIOLOGY RESULT (04/01/2016 5:36 PM PDT) + + | Specimen | + + | | + + + + + | Narrative | Performed At | + + + | GDH ANTIGEN POSITIVE Abnormal | EXTERNAL LAB | | Testing performed at [facility];[address] [place] [address];[place] [address] TOXIN A | | | NEGATIVE Testing performed | | | at [facility];[address] [place] [address];[place] [address] C DIFF INTERPRETATION | | | Positive for C.difficile bacteria. Toxin not detected. | | | C.difficile Toxin by PCR (CLPCR) was ordered by reflex. Results to | | | follow. EXPLANATION OF ALGORITHM: If PCR testing is positive for | | | Toxigenic C.difficile, then consider patient may be a colonized | | | carrier, or toxin level below the limit of detection. If PCR testing | | | is negative for Toxigenic C.difficile, then organism may be a non | | | toxigenic strain lacking the ability to produce toxin. Testing | | | performed at [facility];[address] [place] [address];[place] [address] | | + + + + +---------+ + + | Performing | Address | City/State/Zipcode | Phone Number | | Organization | | | | + +---------+ + + | EXTERNAL LAB | | | | + +---------+ + + HISTORICAL MICROBIOLOGY RESULT (04/01/2016 5:36 PM PDT) + + | Specimen | + + | | + + + + + | Narrative | Performed At | + + + | Toxigenic C Difficile NEGATIVE Testing | EXTERNAL LAB | | performed at [facility];[address] [place] [address];[place] [address] 027 NAP1 BI | | | 027 NAP1 BI PRESUMPTIVE NEGATIVE | | | Detection of 027 NAP1 BI strains of C. difficile is presumptive and | | | for epidemiological purposes and not intended to guide or monitor | | | treatment for C. difficile infections. Testing performed at [facility];[address] | | [facility];[place] [address] | | + + + + +---------+ + + | Performing | Address | City/State/Zipcode | Phone Number | | Organization | | | | + +---------+ + + | EXTERNAL LAB | | | | + +---------+ + + Sedimentation rate, automated (04/01/2016 3:46 AM PDT) + + + + + + | Component | Value | Ref Range | Performed | Pathologist | | | | | At | Signature | + + + + + + | Sed Rate | 3Comment: Testing | 0 - 15 mm/Hr | EXTERNAL | | | | performed at [facility], [address] | | LAB | | | | [address], | | | | | | [place] [address] | | | | + + + + + + + + | Specimen | + + | Blood specimen | | (specimen) | + + + +---------+ + + | Performing | Address | City/State/Zipcode | Phone Number | | Organization | | | | + +---------+ + + | EXTERNAL LAB | | | | + +---------+ + + External Lab: CBC (04/01/2016 3:46 AM PDT) + + + + + + | Component | Value | Ref Range | Performed | Pathologist | | | | | At | Signature | + + + + + + | WBC | 5.85Comment: Testing | 3.80 - 11.00 | EXTERNAL | | | | performed at [facility], [address] | K/uL | LAB | | | | [address], | | | | | | [place] [address] | | | | + + + + + + | Non- | 4.98Comment: Testing | 4.20 - 5.70 | EXTERNAL | | | Red Blood | performed at [facility], [address] | M/uL | LAB | | | Cells | [address], | | | | | Counted | [place] [address] | | | | + + + + + + | Hemoglobin | 13.0 (L)Comment: Testing | 13.2 - 17.0 | EXTERNAL | | | | performed at [facility], [address] | g/dL | LAB | | | | [address], | | | | | | [place] [address] | | | | + + + + + + | Hematocrit, | 39.2Comment: Testing | 39.0 - 50.0 % | EXTERNAL | | | POC | performed at [facility], [address] | | LAB | | | | [address], | | | | | | [place] [address] | | | | + + + + + + | MCV | 78.7 (L)Comment: Testing | 80.0 - 100.0 fl | EXTERNAL | | | | performed at [facility], [address] | | LAB | | | | [address], | | | | | | [place] [address] | | | | + + + + + + | MCH | 26.1 (L)Comment: Testing | 27.0 - 34.0 pg | EXTERNAL | | | | performed at [facility], [address] | | LAB | | | | [address], | | | | | | [place] [address] | | | | + + + + + + | MCHC | 33.2Comment: Testing | 32.0 - 35.5 | EXTERNAL | | | | performed at [facility], [address] | g/dL | LAB | | | | [address], | | | | | | [place] [address] | | | | + + + + + + | RDW-CV | 34.1 (L)Comment: Testing | 37 - 53 fl | EXTERNAL | | | | performed at [facility], [address] | | LAB | | | | [address], | | | | | | [place] [address] | | | | + + + + + + | Platelet | 183Comment: Testing | 150 - 400 K/uL | EXTERNAL | | | Count | performed at [facility], [address] | | LAB | | | Plasma | [address], | | | | | | [place] [address] | | | | + + + + + + | MPV | 8.5Comment: Testing | fl | EXTERNAL | | | | performed at [facility], [address] | | LAB | | | | [address], | | | | | | [place] [address] | | | | + + + + + + | Differentia | AUTOMATEDComment: | | EXTERNAL | | | l Type | Testing performed at | | LAB | | | | [facility], [address] | | | | | | [place] | | | | | | [address] | | | | + + + + + + | % Segmented | 50.96Comment: Testing | % | EXTERNAL | | | | performed at [facility], [address] | | LAB | | | Neutrophils | [address], | | | | | | [place] [address] | | | | + + + + + + | % | 33.74Comment: Testing | % | EXTERNAL | | | Lymphocytes | performed at [facility], [address] | | LAB | | | | [address], | | | | | | [place] [address] | | | | + + + + + + | % Monocytes | 10.27Comment: Testing | % | EXTERNAL | | | | performed at [facility], [address] | | LAB | | | | [address], | | | | | | [place] [address] | | | | + + + + + + | % | 3.97Comment: Testing | % | EXTERNAL | | | Eosinophils | performed at [facility], [address] | | LAB | | | | [address], | | | | | | [place] [address] | | | | + + + + + + | % Basophils | 1.06Comment: Testing | % | EXTERNAL | | | | performed at [facility], [address] | | LAB | | | | [address], | | | | | | [place] [address] | | | | + + + + + + | Absolute | 2.98Comment: Testing | 1.90 - 7.40 | EXTERNAL | | | Segmented | performed at [facility], [address] | K/uL | LAB | | | Neutrophils | [address], | | | | | | [place] [address] | | | | + + + + + + | Absolute | 1.97Comment: Testing | 1.00 - 3.90 | EXTERNAL | | | Lymphocytes | performed at [facility], [address] | K/uL | LAB | | | | [address], | | | | | | [place] [address] | | | | + + + + + + | Absolute | 0.60Comment: Testing | 0.00 - 0.80 | EXTERNAL | | | Monocytes | performed at [facility], [address] | K/uL | LAB | | | | [address], | | | | | | [place] [address] | | | | + + + + + + | Absolute | 0.23Comment: Testing | 0.00 - 0.50 | EXTERNAL | | | Eosinophils | performed at [facility], [address] | LAB | | | | [address], | | | | | | [place] [address] | | | | + + + + + + | Absolute | 0.06Comment: Testing | 0.00 - 0.10 | EXTERNAL | | | Basophils | performed at [facility], [address] | LAB | | | | [address], | | | | | | [place] [address] | | | | + + + + + + + + | Specimen | + + | Blood specimen | | (specimen) | + + + +---------+ + + | Performing | Address | City/State/Zipcode | Phone Number | | Organization | | | | + +---------+ + + | EXTERNAL LAB | | | | + +---------+ + + C-Reactive Protein (04/01/2016 3:46 AM PDT) + + + + + + | Component | Value | Ref Range | Performed | Pathologist | | | | | At | Signature | + + + + + + | CRP | 2.7 (H)Comment: Testing | mg/dL | EXTERNAL | | | | performed at [facility], [address] | LAB | | | | [address], | | | | | | [place] [address] | | | | + + + + + + + + | Specimen | + + | Blood specimen | | (specimen) | + + + +---------+ + + | Performing | Address | City/State/Zipcode | Phone Number | | Organization | | | | + +---------+ + + | EXTERNAL LAB | | | | + +---------+ + + TSH (04/01/2016 3:46 AM PDT) + + + + + + | Component | Value | Ref Range | Performed | Pathologist | | | | | At | Signature | + + + + + + | TSH | 7.24 (H)Comment: Testing | 0.45 - 5.10 | EXTERNAL | | | | performed at [facility], [address] | u[address]/mL | LAB | | | | [address], | | | | | | [place] [address] | | | | + + + + + + + + | Specimen | + + | Blood specimen | | (specimen) | + + + +---------+ + + | Performing | Address | City/State/Zipcode | Phone Number | | Organization | | | | + +---------+ + + | EXTERNAL LAB | | | | + +---------+ + + Phosphorus (04/01/2016 3:46 AM PDT) + + + + + + | Component | Value | Ref Range | Performed | Pathologist | | | | | At | Signature | + + + + + + | PHOSPHORUS | 3.3Comment: Testing | 2.3 - 4.8 mg/dL | EXTERNAL | | | | performed at [facility], [address] | | LAB | | | | [address], | | | | | | [place] [address] | | | | + + + + + + + + | Specimen | + + | Blood specimen | | (specimen) | + + + +---------+ + + | Performing | Address | City/State/Zipcode | Phone Number | | Organization | | | | + +---------+ + + | EXTERNAL LAB | | | | + +---------+ + + Magnesium (04/01/2016 3:46 AM PDT) + + + + + + | Component | Value | Ref Range | Performed | Pathologist | | | | | At | Signature | + + + + + + | Magnesium | 1.8Comment: Testing | 1.7 - 2.4 mg/dL | EXTERNAL | | | | performed at [facility], [address] | | LAB | | | | [address], | | | | | | [place] [address] | | | | + + + + + + + + | Specimen | + + | Blood specimen | | (specimen) | + + + +---------+ + + | Performing | Address | City/State/Zipcode | Phone Number | | Organization | | | | + +---------+ + + | EXTERNAL LAB | | | | + +---------+ + + Hemoglobin A1C (04/01/2016 3:46 AM PDT) + + + + + + | Component | Value | Ref Range | Performed | Pathologist | | | | | At | Signature | + + + + + + | Hemoglobin | 5.1Comment: The [place] | 4.0 - 6.0 % | EXTERNAL | | | A1c | Diabetes Association | | LAB | | | | considers a hemoglobin | | | | | | A1c result of <7.0% to | | | | | | be the goal of diabetic | | | | | | therapy. When results | | | | | | are consistently >8.0%, | | | | | | the ADA suggests | | | | | | reevaluation of the | | | | | | treatment regimen. The | | | | | | testing method used is | | | | | | certified traceable to | | | | | | the Diabetes Control and | | | | | | Complications Trial | | | | | | reference method.Testing | | | | | | performed at [facility], [address] | | | | | [address] [facility], | | | | | | [place] [address] | | | | + + + + + + | Glycohemogl | 100Comment: The ADA | mg/dL | EXTERNAL | | | obin | considers an eAG result | | LAB | | | (GHb),Total | of LT 154 mg/dL to be | | | | | | the goal of diabetic | | | | | | therapy. Estimated | | | | | | Average Glucose | | | | | | calculated from | | | | | | hemoglobin A1c by use of | | | | | | the ADA recommended | | | | | | formula.Testing | | | | | | performed at [facility], [address] | | | | | | [facility], | | | | | | [place] [address] | | | | + + + + + + + + | Specimen | + + | Blood specimen | | (specimen) | + + + +---------+ + + | Performing | Address | City/State/Zipcode | Phone Number | | Organization | | | | + +---------+ + + | EXTERNAL LAB | | | | + +---------+ + + Basic Metabolic Panel (04/01/2016 3:46 AM PDT) + + + + + + | Component | Value | Ref Range | Performed | Pathologist | | | | | At | Signature | + + + + + + | Na | 139Comment: Testing | 135 - 143 | EXTERNAL | | | | performed at [facility], [address] | mmol/L | LAB | | | | [address] | | | | | | [place] [address] | | | | + + + + + + | K | 3.8Comment: Testing | 3.5 - 4.9 | EXTERNAL | | | | performed at [facility], [address] | mmol/L | LAB | | | | [address], | | | | | | [place] [address] | | | | + + + + + + | Cl | 107Comment: Testing | 99 - 109 mmol/L | EXTERNAL | | | | performed at [facility], [address] | | LAB | | | | [address], | | | | | | [place] [address] | | | | + + + + + + | CO2 | 25Comment: Testing | 23 - 32 mmol/L | EXTERNAL | | | | performed at [facility], [address] | | LAB | | | | [address], | | | | | | [place] [address] | | | | + + + + + + | Anion Gap | 11Comment: Testing | 5 - 20 mmol/L | EXTERNAL | | | | performed at [facility], [address] | | LAB | | | | [address], | | | | | | [place] [address] | | | | + + + + + + | Glucose, | 105 (H)Comment: Testing | 65 - 99 mg/dL | EXTERNAL | | | Fasting | performed at [facility], [address] | | LAB | | | | [address], | | | | | | [place] [address] | | | | + + + + + + | BUN | 16Comment: Testing | 8 - 25 mg/dL | EXTERNAL | | | | performed at [facility], [address] | | LAB | | | | [address], | | | | | | [place] [address] | | | | + + + + + + | Creatinine | 1.06Comment: Testing | 0.70 - 1.30 | EXTERNAL | | | | performed at [facility], [address] | mg/dL | LAB | | | | [address], | | | | | | [place] [address] | | | | + + + + + + | BUN/Creatin | 15Comment: Testing | | EXTERNAL | | | ine Ratio | performed at [facility], [address] | | LAB | | | | [address], | | | | | | [place] [address] | | | | + + + + + + | Calcium | 8.5Comment: Testing | 8.5 - 10.5 | EXTERNAL | | | | performed at [facility], [address] | mg/dL | LAB | | | | [address], | | | | | | [place] [address] | | | | + + + + + + | Estimated | >60Comment: GFR <60: | mL/min/1.73m2 | EXTERNAL | | | GFR | CHRONIC KIDNEY DISEASE, | | LAB | | | | IF FOUND OVER A 3 MONTH | | | | | | PERIOD.GFR <15: KIDNEY | | | | | | FAILURE.FOR | | | | | | AMERICANS, MULTIPLY THE | | | | | | CALCULATED GFR BY | | | | | | 1.210.Testing performed | | | | | | at [facility], [address] | | | | | | [address], | | | | | | [place] [address] | | | | + + + + + + + + | Specimen | + + | Blood specimen | | (specimen) | + + + +---------+ + + | Performing | Address | City/State/Zipcode | Phone Number | | Organization | | | | + +---------+ + + | EXTERNAL LAB | | | | + +---------+ + + XR Ankle Left 1 Vw Limited (03/31/2016 7:10 PM PDT) + + | Specimen | + + | | + + + + + | Impressions | Performed At | + + + | FINDINGS/ IMPRESSION: 1. No acute fracture or malalignment. Ankle | | | mortise is intact. No ankle joint effusion. 2. No lytic or | | | sclerotic lesions in visualized bones. No periosteal reaction or | | | cortical erosions to indicate acute osteoarthritis. 3. Mild soft | | | tissue swelling about ankle. | | + + + + + + | Narrative | Performed At | + + + | TE[facility]RAY[facility]ALE[facility] 1985 XR ANKLE LIMITED LEFT | | | 03/31/2016 7:10 PM INDICATION: Joint pain COMPARISON: MRI dated | | | 03/31/2016 TECHNIQUE: Left ankle series, 3 views | | + + + + + | Procedure Note | + + | Fuentes Mcnally Conversion - 06/16/2019 7:57 PM PDT TOE SALEEM .1985XR | | ANKLE LIMITED LEFT03/31/2016 7:10 PM INDICATION: Joint pain COMPARISON: MRI dated | | 03/31/2016 TECHNIQUE: Left ankle series, 3 views IMPRESSION: FINDINGS/ IMPRESSION:1. No | | acute fracture or malalignment. Ankle mortise is intact. No ankle joint effusion.2. No | | lytic or sclerotic lesions in visualized bones. No periosteal reaction or cortical | | erosions to indicate acute osteoarthritis.3. Mild soft tissue swelling about ankle. | | | |COMPARISON: MRI dated 03/31/2016 | | | |TECHNIQUE: Left ankle series, 3 views | | | |IMPRESSION: | |FINDINGS/ IMPRESSION: | |1. No acute fracture or malalignment. Ankle mortise is intact. No ankle joint effusion. | |2. No lytic or sclerotic lesions in visualized bones. No periosteal reaction or cortical e rosions to indicate acute osteoarthritis. | |3. Mild soft tissue swelling about ankle. | | | | | + + VAS Lower Extremity Venous Left (03/31/2016 4:49 PM PDT) + + | Specimen | + + | | + + + + + | Impressions | Performed At | + + + | No evidence for deep venous thrombosis. [facility] | | | Electronically signed by Wilbur Ramirez MD on Mar 31 2016 5:09PM | | | Referring Provider Line: [phone] ID: [id number] | | + + + + + + | Narrative | Performed At | + + + | EXAM: LEFT LOWER EXTREMITY VENOUS ULTRASOUND EXAM DATE: | | | 03/31/2016 04:06 PM. CLINICAL HISTORY: Left calf pain and redness. | | | COMPARISON: None. TECHNIQUE: Real-time sonographic vascular | | | imaging was performed by the rn review through the lower extremity | | | utilizing both color-flow and Doppler spectral analysis. Multiple | | | electronics parts sales representative static images were saved for review. FINDINGS: | | | Common Femoral Vein (CFV): Normal. CFV-GSV Junction: Normal. | | | Profunda Femoral Vein (PFV): Normal. Femoral Vein (FV) Prox: Normal. | | | Femoral Vein (FV) Mid: Normal. Femoral Vein (FV) Dist: Normal. | | | Popliteal Vein: Normal. Posterior Tibial Veins: Normal. Peroneal | | | Veins: Normal. Other: Subcutaneous edema noted in the region of | | | redness. | | + + + + + | Procedure Note | + + | Fuentes Mcnally Conversion - 06/16/2019 7:57 PM PDT EXAM:LEFT LOWER EXTREMITY VENOUS | | ULTRASOUND EXAM DATE: 03/31/2016 04:06 PM. CLINICAL HISTORY: Left calf pain and redness. | | COMPARISON: None. TECHNIQUE: Real-time sonographic vascular imaging was performed by the | | rn review through the lower extremity utilizing both color-flow and Doppler spectral | | analysis. Multiple electronics parts sales representative static images were saved for review. FINDINGS:Common | | Femoral Vein (CFV): Normal.CFV-GSV Junction: Normal.Profunda Femoral Vein (PFV): | | Normal.Femoral Vein (FV) Prox: Normal.Femoral Vein (FV) Mid: Normal.Femoral Vein (FV) | | Dist: Normal.Popliteal Vein: Normal.Posterior Tibial Veins: Normal.Peroneal Veins: | | Normal. Other: Subcutaneous edema noted in the region of redness. IMPRESSION: No | | evidence for deep venous thrombosis. [facility] Electronically signed by Wilbur Ramirez MD on | | Mar 31 2016 5:09PM Referring Provider Line: [phone] ID: [id number] | |FINDINGS: | |Common Femoral Vein (CFV): Normal. | |CFV-GSV Junction: Normal. | |Profunda Femoral Vein (PFV): Normal. | |Femoral Vein (FV) Prox: Normal. | |Femoral Vein (FV) Mid: Normal. | |Femoral Vein (FV) Dist: Normal. | |Popliteal Vein: Normal. | |Posterior Tibial Veins: Normal. | |Peroneal Veins: Normal. | | | |Other: Subcutaneous edema noted in the region of redness. | | | |IMPRESSION: | |No evidence for deep venous thrombosis. | | | |[facility] | | | | Electronically signed by Wilbur Ramirez MD on Mar 31 2016 5:09PM Referring Provider Line: [phone] ID: [id number] | + + MRI Tibia Fibula Left w wo Contrast (03/31/2016 3:11 PM PDT) + + | Specimen | + + | | + + + + + | Impressions | Performed At | + + + | 1. An approximately 5.4 x 0.6 x 0.6 cm occlusive thrombus within | | | a soleus muscle vein. Mild amount of edema within the soleus muscle | | | immediately adjacent to the thrombosed vein. The visualized tibial, | | | peroneal, and popliteal veins appear patent. Consider further | | | evaluation with a lower extremity Doppler ultrasound exam to further | | | evaluate the left lower extremity deep veins. 2. Very small open | | | cutaneous and subcutaneous wound at the anterior aspect of the mid | | | lower leg. Subcutaneous edema, swelling, and enhancement at the | | | anteromedial aspects of the lower leg suggestive of cellulitis. No | | | evidence of abscess. 3. No evidence of osteomyelitis. CRITICAL | | | RESULT: The findings were discussed with Harshil López on 03/31/2016, | | | time 1535. [facility] MUSCULOSKELETAL RADIOLOGY SECTION | | | Electronically signed by Lalito Funk MD on Mar 31 2016 3:36PM | | | Referring Provider Line: [phone] ID: [id number] | | + + + + + + | Narrative | Performed At | + + + | EXAM: Left Calf/Tibia MRI Without and With Contrast EXAM DATE: | | | 03/31/2016 03:13 PM. CLINICAL HISTORY: Left lower leg infection. | | | Evaluate for abscess. COMPARISON: None. TECHNIQUE: | | | Multiplanar, multisequence T1-weighted and fluid-sensitive sequences | | | of the calf/tibia before and after administration of intravenous | | | contrast. IV contrast: 21 cc MultiHance. Other: None. FINDINGS: | | | Bones: No fractures or subluxations. No marrow edema or abnormal | | | enhancement. No bone lesions. Joint Spaces: Visualized portions of | | | the ankle and knee joints are unremarkable. Tendons: Where | | | visualized, the Achilles and plantaris tendons are intact. There | | | is occlusive thrombus within a soleus muscle vein. The thrombus within | | | the vein measures approximately 5.4 cm cranial caudal by 0.6 cm | | | medial to lateral by 0.0.6 cm AP. There is a mild amount of edema | | | within the soleus muscle immediately adjacent to the thrombosed | | | vein. The visualized tibial, peroneal, and popliteal veins appear | | | patent. There is a small open cutaneous and subcutaneous wound at | | | the anterior aspect of the mid lower leg. There is subcutaneous edema, | | | swelling, and enhancement at the anterior and medial aspects of the | | | lower leg. | | + + + + + | Procedure Note | + + | Uli, Rad Conversion - 06/16/2019 7:57 PM PDT EXAM:Left Calf/Tibia MRI Without and | | With Contrast EXAM DATE: 03/31/2016 03:13 PM. CLINICAL HISTORY: Left lower leg infection. | | Evaluate for abscess. COMPARISON: None. TECHNIQUE: Multiplanar, multisequence | | T1-weighted and fluid-sensitive sequences of the calf/tibia before and after | | administration of intravenous contrast. IV contrast: 21 cc MultiHance. Other: None. | | FINDINGS:Bones: No fractures or subluxations. No marrow edema or abnormal enhancement. | | No bone lesions. Joint Spaces: Visualized portions of the ankle and knee joints are | | unremarkable. Tendons: Where visualized, the Achilles and plantaris tendons are intact. | | There is occlusive thrombus within a soleus muscle vein. The thrombus within the vein | | measures approximately 5.4 cm cranial caudal by 0.6 cm medial to lateral by 0.0.6 cm AP. | | There is a mild amount of edema within the soleus muscle immediately adjacent to the | | thrombosed vein. The visualized tibial, peroneal, and popliteal veins appear patent. | | There is a small open cutaneous and subcutaneous wound at the anterior aspect of the mid | | lower leg. There is subcutaneous edema, swelling, and enhancement at the anterior and | | medial aspects of the lower leg. IMPRESSION: 1. An approximately 5.4 x 0.6 x 0.6 cm | | occlusive thrombus within a soleus muscle vein. Mild amount of edema within the soleus | | muscle immediately adjacent to the thrombosed vein. The visualized tibial, peroneal, and | | popliteal veins appear patent. Consider further evaluation with a lower extremity | | Doppler ultrasound exam to further evaluate the left lower extremity deep veins.2. Very | | small open cutaneous and subcutaneous wound at the anterior aspect of the mid lower leg. | | Subcutaneous edema, swelling, and enhancement at the anteromedial aspects of the lower | | leg suggestive of cellulitis. No evidence of abscess.3. No evidence of osteomyelitis. | | CRITICAL RESULT: The findings were discussed with Harshil López on 03/31/2016, time 1535. | | [facility] MUSCULOSKELETAL RADIOLOGY SECTION Electronically signed by Lalito Funk MD on March 3:36PM Referring Provider Line: [phone] ID: [id number] | | | |1. An approximately 5.4 x 0.6 x 0.6 cm occlusive thrombus within a soleus muscle vein. Mild amount of edema within the soleus muscle immediately adjacent to the thrombosed vein. The v isualized tibial, peroneal, and | |popliteal veins appear patent. Consider | | further evaluation with a lower extremity Doppler ultrasound exam to further evaluate the left lower extremity deep veins. | |2. Very small open cutaneous and subcutaneous wound at the anterior aspect of the mid lower leg. Subcutaneous edema, swelling, and enhancement at the anteromedial aspects of the lower leg suggestive of cellulitis. No evidence of abscess. | |3. No evidence of osteomyelitis. | | | |CRITICAL RESULT: The findings were discussed with Harshil López on 03/31/2016, time 1535. | | | |[facility] MUSCULOSKELETAL RADIOLOGY SECTION | | | | | | Electronically signed by Lalito Funk MD on Mar 31 2016 3:36PM Referring Provider Line: [phone] ID: [id number] | + + Culture, Blood, 2nd Specimen (03/31/2016 2:25 PM PDT) + + | Specimen | + + | Blood specimen | | (specimen) | + + + + + | Narrative | Performed At | + + + | Specimen Description BLOOD CULTURE | EXTERNAL LAB | | NO GROWTH 6 DAYS | | | Testing performed at [facility], [address] | | | [place] [address] | | + + + + +---------+ + + | Performing | Address | City/State/Zipcode | Phone Number | | Organization | | | | + +---------+ + + | EXTERNAL LAB | | | | + +---------+ + + Culture, Wound, Smear, w/Anaerobe (03/31/2016 2:19 PM PDT) + + | Specimen | + + | | + + + + + | Narrative | Performed At | + + + | Specimen Description OTHER CULTURE | EXTERNAL LAB | | 3+ | | | STENOTROPHOMONAS | | | MALTOPHILIAAbnormal | | | 1+ | | | NORMAL SKIN RODOLFO ISOLATED | | | Testing performed at [facility], [address] [facility], | | | [place] [address] Suscepibility for - STENOTROPHOMONAS | | | MALTOPHILIA Levofloxacin | | | SUSCEPTIBLESensitive Trimethoprim + | | | SulfamethoxazoleSUSCEPTIBLESensitive | | + + + + +---------+ + + | Performing | Address | City/State/Zipcode | Phone Number | | Organization | | | | + +---------+ + + | EXTERNAL LAB | | | | + +---------+ + + MRSA NAAT (03/31/2016 2:18 PM PDT) + + | Specimen | + + | | + + + + + | Narrative | Performed At | + + + | SOURCE NARES(NOSE) MRSA | EXTERNAL LAB | | PCR NEGATIVE Testing | | | performed at [facility];[address] [place] [address];[place] [address] | | + + + + +---------+ + + | Performing | Address | City/State/Zipcode | Phone Number | | Organization | | | | + +---------+ + + | EXTERNAL LAB | | | | + +---------+ + + Culture, Blood (03/31/2016 2:15 PM PDT) + + | Specimen | + + | Blood specimen | | (specimen) | + + + + + | Narrative | Performed At | + + + | Specimen Description BLOOD CULTURE | EXTERNAL LAB | | NO GROWTH 6 DAYS | | | Testing performed at [facility], [address] | | [place] [address] | | + + + + +---------+ + + | Performing | Address | City/State/Zipcode | Phone Number | | Organization | | | | + +---------+ + + | EXTERNAL LAB | | | | + +---------+ + + Lactic Acid (03/31/2016 2:15 PM PDT) + + + + + + | Component | Value | Ref Range | Performed | Pathologist | | | | | At | Signature | + + + + + + | Lactate | 1.9Comment: Testing | 0.4 - 2.0 | EXTERNAL | | | | performed at [facility];[address] | mmol/L | LAB | | | | [address];[place] | | | | | | [address] | | | | + + + + + + + + | Specimen | + + | | + + + +---------+ + + | Performing | Address | City/State/Zipcode | Phone Number | | Organization | | | | + +---------+ + + | EXTERNAL LAB | | | | + +---------+ + + External Lab: CBC (03/31/2016 2:15 PM PDT) + + + + + + | Component | Value | Ref Range | Performed | Pathologist | | | | | At | Signature | + + + + + + | WBC | 5.20Comment: Testing | 3.80 - 11.00 | EXTERNAL | | | | performed at [facility];[address] | K/uL | LAB | | | | [address];[place] | | | | | | [address] | | | | + + + + + + | Non- | 5.66Comment: Testing | 4.20 - 5.70 | EXTERNAL | | | Red Blood | performed at [facility];[address] | M/uL | LAB | | | Cells | [address];[place] | | | | | Counted | [id number] | | | | + + + + + + | Hemoglobin | 14.4Comment: Testing | 13.2 - 17.0 | EXTERNAL | | | | performed at [facility];[address] | g/dL | LAB | | | | [address];[place] | | | | | | [address] | | | | + + + + + + | Hematocrit, | 44.4Comment: Testing | 39.0 - 50.0 % | EXTERNAL | | | POC | performed at [facility];[address] | | LAB | | | | [address];[place] | | | | | | [address] | | | | + + + + + + | MCV | 78.5 (L)Comment: Testing | 80.0 - 100.0 fl | EXTERNAL | | | | performed at [facility];[address] | | LAB | | | | [address];[place] | | | | | | [address] | | | | + + + + + + | MCH | 25.5 (L)Comment: Testing | 27.0 - 34.0 pg | EXTERNAL | | | | performed at [facility];[address] | | LAB | | | | [address];[place] | | | | | | [address] | | | | + + + + + + | MCHC | 32.6Comment: Testing | 32.0 - 35.5 | EXTERNAL | | | | performed at [facility];[address] | g/dL | LAB | | | | [address];[place] | | | | | | [address] | | | | + + + + + + | RDW-CV | 34.6 (L)Comment: Testing | 37 - 53 fl | EXTERNAL | | | | performed at [facility];[address] | | LAB | | | | [address];[place] | | | | | | [address] | | | | + + + + + + | Platelet | 205Comment: Testing | 150 - 400 K/uL | EXTERNAL | | | Count | performed at [facility];[address] | | LAB | | | Plasma | [address];[place] | | | | | | [address] | | | | + + + + + + | MPV | 8.2Comment: Testing | fl | EXTERNAL | | | | performed at [facility];[address] | | LAB | | | | [address];[place] | | | | | | [address] | | | | + + + + + + | Differentia | AUTOMATEDComment: | | EXTERNAL | | | l Type | Testing performed at | | LAB | | | | [facility];[address];[place] [address] | | | | + + + + + + | % Segmented | 60.96Comment: Testing | % | EXTERNAL | | | | performed at [facility];[address] | | LAB | | | Neutrophils | [address];[place] | | | | | | [address] | | | | + + + + + + | % | 25.34Comment: Testing | % | EXTERNAL | | | Lymphocytes | performed at [facility];[address] | | LAB | | | | [address];[place] | | | | | | [address] | | | | + + + + + + | % Monocytes | 9.61Comment: Testing | % | EXTERNAL | | | | performed at [facility];[address] | | LAB | | | | [address];[place] | | | | | | [address] | | | | + + + + + + | % | 3.76Comment: Testing | % | EXTERNAL | | | Eosinophils | performed at [facility];[address] | | LAB | | | | [address];[place] | | | | | | [address] | | | | + + + + + + | % Basophils | 0.33Comment: Testing | % | EXTERNAL | | | | performed at [facility];[address] | | LAB | | | | [address];[place] | | | | | | [address] | | | | + + + + + + | Absolute | 3.17Comment: Testing | 1.90 - 7.40 | EXTERNAL | | | Segmented | performed at [facility];[address] | K/uL | LAB | | | Neutrophils | [address];[place] | | | | | | [address] | | | | + + + + + + | Absolute | 1.32Comment: Testing | 1.00 - 3.90 | EXTERNAL | | | Lymphocytes | performed at [facility];[address] | K/uL | LAB | | | | [address];[place] | | | | | | [address] | | | | + + + + + + | Absolute | 0.50Comment: Testing | 0.00 - 0.80 | EXTERNAL | | | Monocytes | performed at [facility];[address] | K/uL | LAB | | | | [address];[place] | | | | | | [address] | | | | + + + + + + | Absolute | 0.20Comment: Testing | 0.00 - 0.50 | EXTERNAL | | | Eosinophils | performed at [facility];[address] | K/uL | LAB | | | | [address];[place] | | | | | | [address] | | | | + + + + + + | Absolute | 0.02Comment: Testing | 0.00 - 0.10 | EXTERNAL | | | Basophils | performed at [facility];[address] | K/uL | LAB | | | [address];[place], [place] | | | | | | [address] | | | | + + + + + + + + | Specimen | + + | Blood specimen | | (specimen) | + + + +---------+ + + | Performing | Address | City/State/Zipcode | Phone Number | | Organization | | | | + +---------+ + + | EXTERNAL LAB | | | | + +---------+ + + C-Reactive Protein (03/31/2016 2:15 PM PDT) + + + + + + | Component | Value | Ref Range | Performed | Pathologist | | | | | At | Signature | + + + + + + | CRP | 4.6 (H)Comment: Testing | mg/dL | EXTERNAL | | | | performed at [facility];[address] | | LAB | | | | [address];[place], [place] | | | | | | [address] | | | | + + + + + + + + | Specimen | + + | Blood specimen | | (specimen) | + + + +---------+ + + | Performing | Address | City/State/Zipcode | Phone Number | | Organization | | | | + +---------+ + + | EXTERNAL LAB | | | | + +---------+ + + Comprehensive Metabolic Panel (03/31/2016 2:15 PM PDT) + + + + + + | Component | Value | Ref Range | Performed | Pathologist | | | | | At | Signature | + + + + + + | Na | 142Comment: Testing | 135 - 143 | EXTERNAL | | | | performed at [facility];888 | mmol/L | LAB | | | | [address];[place] | | | | | | [address] | | | | + + + + + + | K | 4.0Comment: Testing | 3.5 - 4.9 | EXTERNAL | | | | performed at [facility];888 | mmol/L | LAB | | | | [address];[place] | | | | | | [address] | | | | + + + + + + | Cl | 109Comment: Testing | 99 - 109 mmol/L | EXTERNAL | | | | performed at [facility];888 | | LAB | | | | [address];[place] | | | | | | [address] | | | | + + + + + + | CO2 | 26Comment: Testing | 23 - 32 mmol/L | EXTERNAL | | | | performed at [facility];888 | | LAB | | | | [address];[place] | | | | | | [address] | | | | + + + + + + | Anion Gap | 11Comment: Testing | 5 - 20 mmol/L | EXTERNAL | | | | performed at [facility];888 | | LAB | | | | [address];[place] | | | | | | [address] | | | | + + + + + + | Glucose, | 103 (H)Comment: Testing | 65 - 99 mg/dL | EXTERNAL | | | Fasting | performed at [facility];888 | | LAB | | | | [address];[place] | | | | | | [address] | | | | + + + + + + | BUN | 15Comment: Testing | 8 - 25 mg/dL | EXTERNAL | | | | performed at [facility];888 | | LAB | | | | [address];[place] | | | | | | [address] | | | | + + + + + + | Creatinine | 1.3Comment: Testing | 0.70 - 1.30 | EXTERNAL | | | | performed at [facility];888 | mg/dL | LAB | | | | [address];[place] | | | | | | [address] | | | | + + + + + + | BUN/Creatin | 11Comment: Testing | | EXTERNAL | | | ine Ratio | performed at [facility];888 | | LAB | | | | [address];[place] | | | | | | [address] | | | | + + + + + + | Calcium | 8.7Comment: Testing | 8.5 - 10.5 | EXTERNAL | | | | performed at [facility];888 | mg/dL | LAB | | | | [address];[place] | | | | | | [address] | | | | + + + + + + | Protein, | 7.1Comment: Testing | 6.3 - 8.2 g/dL | EXTERNAL | | | Total | performed at [facility];888 | | LAB | | | | [address];[place] | | | | | | [address] | | | | + + + + + + | Albumin | 3.3 (L)Comment: Testing | 3.6 - 5.0 g/dL | EXTERNAL | | | | performed at [facility];888 | | LAB | | | | [address];[place] | | | | | | [address] | | | | + + + + + + | Globulin | 3.9Comment: Testing | 1.3 - 4.9 g/dL | EXTERNAL | | | | performed at [facility];888 | | LAB | | | | [address];[place] | | | | | | [address] | | | | + + + + + + | A/G Ratio | 0.8 (L)Comment: Testing | 1.0 - 2.4 | EXTERNAL | | | | performed at [facility];888 | | LAB | | | | [address];[place] | | | | | | [address] | | | | + + + + + + | Bilirubin | 0.2Comment: Testing | 0.1 - 1.5 mg/dL | EXTERNAL | | | Total | performed at [facility];888 | | LAB | | | | [address];[place] | | | | | | [address] | | | | + + + + + + | ALP, | 63Comment: Testing | 35 - 115 U/L | EXTERNAL | | | External | performed at [facility];888 | | LAB | | | | [address];[place] | | | | | | [address] | | | | + + + + + + | AST | 12Comment: Testing | 10 - 45 U/L | EXTERNAL | | | | performed at [facility];888 | | LAB | | | | [address];[place] | | | | | | [address] | | | | + + + + + + | ALT | 11Comment: Testing | 10 - 65 U/L | EXTERNAL | | | | performed at [facility];888 | | LAB | | | | [address];[place] | | | | | | [address] | | | | + + + + + + | Estimated | >60Comment: GFR <60: | mL/min/1.73m2 | EXTERNAL | | | GFR | CHRONIC KIDNEY DISEASE, | | LAB | | | | IF FOUND OVER A 3 MONTH | | | | | | PERIOD.GFR <15: KIDNEY | | | | | | FAILURE.FOR | | | | | | AMERICANS, MULTIPLY THE | | | | | | CALCULATED GFR BY | | | | | | 1.210.Testing performed | | | | | | at [facility];[address];[place] [address] | | | | + + + + + + + + | Specimen | + + | Blood specimen | | (specimen) | + + + +---------+ + + | Performing | Address | City/State/Zipcode | Phone Number | | Organization | | | | + +---------+ + + | EXTERNAL LAB | | | | + +---------+ + + documented in this encounter Visit Diagnoses + + | Diagnosis | + + | Cellulitis of left lower leg Cellulitis and abscess of leg, except foot | + + | Lower leg DVT (deep venous thromboembolism), acute, left (HCC) | + + documented in this encounter
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
--- OUTSIDE RECORDS SUMMARY | ~2020-07-24 | XMS | Encounter Summary ---
Demographics + + + | Address | [address] | | | [place] [address] | + + + | Home Phone | | + + + | Preferred Language | Unknown | + + + | Marital Status | Single | + + + | Orthodox Affiliation | Unknown | + + + | Race | White | + + + | Ethnic Group | Not or | + + + Author + + + | Author | [facility] | + + + | Organization | [facility] | + + + | Address | Unknown | + + + | Phone | Unavailable | + + + Support + + +---------+ + | Name | Relationship | Address | Phone | + + +---------+ + | Ole Vargas Sr. | ECON | Unknown | | + + +---------+ + Care Team Providers + +------+ + | Care Philosophy Faculty Member Name | Role | Phone | + +------+ + | No Pcp Per Patient | PCP | Unavailable | + +------+ + Encounter Details +--------+ + + + + | Date | Type | Department | Care Team | Description | +--------+ + + + + | 06/15/ | [facility] | Orthopaedics | Evelia Nguyen PA | | | 2011 | | [facility] at [facility] | [address] | | | | | for Health and | [place], [place] | | | | | Healing [address] | [address] | | | | | [facility] | [phone] | | | | | Health and Healing, | | | | | | | | | | | | Floor [place], [place] | | | | | | [address] | | | | | | [phone] | | | +--------+ + + + [...] this encounter Miscellaneous Notes Telephone Encounter - Evelia Nguyen PA - 06/15/2012 3:48 PM PDTReviewed films with dr. Alexx joshi. He does not see any surgical indication at this time regarding scapular fracture. Tiffanie tomlin and advised patient. Due to time from [place] to [facility], he may seek local follow up for t he injury. Offered that if that does nto work out, we would see patient at [facility] in approx fo ur to six weeks with repeat xrays. 3 :49 PM PDTdocumented in this encounter Plan of Treatment Not on filedocumented as of this encounter Visit Diagnoses Not on filedocumented in this encounter"
--- OUTSIDE RECORDS SUMMARY | ~2020-07-24 | XMS | Encounter Summary ---
Demographics + + + | Address | [address] | | | [place] [address] | + + + | Home Phone | | + + + | Preferred Language | Unknown | + + + | Marital Status | Single | + + + | Jain Affiliation | Unknown | + + + | Race | White | + + + | Ethnic Group | Not or | + + + Author + + + | Author | [facility] | + + + | Organization | [facility] | + + + | Address | Unknown | + + + | Phone | Unavailable | + + + Support + + +---------+ + | Name | Relationship | Address | Phone | + + +---------+ + | Ole Vargas Sr. | ECON | Unknown | | + + +---------+ + Care Team Providers + +------+ + | Care Button Sewing Machine Operator Name | Role | Phone | + +------+ + | No Pcp Per Patient | PCP | Unavailable | + +------+ + Encounter Details +--------+ + + + + | Date | Type | Department | Care Team | Description | +--------+ + + + + | 06/07/ | Hospital | Radiology/Imaging | | | | 2011 | Encounter | Lab at [facility] [address] | | | | | [address] [facility] for | | | | | | Health and Healing, | | | | | | [address] | | | | | | Floor [place], [place] | | | | | | [address] | | | | | | [phone] | | | +--------+ + + + [...] | + +--------+ + + + | X-RAY SCAPULA | Routin | 06/07/2012 | Scapula fracture | Results for this | | COMPLETE | e | 1:16 PM | | procedure are in the | | | | PDT | | results section. | + +--------+ + + + documented in this encounter Results X-RAY SCAPULA COMPLETE (06/07/2012 [...] Bateman, | | | | | | M.StacyAuthor: Dallas Bateman, | | | | | | M.D. I have personally | | | | | | viewed this | | | | | | procedure/exam, reviewed | | | | | | this report,and made | | | | | | changes to it where | | | | | | appropriate. | | | | | | Final/Electronically | | | | | | signed / Dallas Bateman | | | | | | 06/07/2012 14:49 PM | | | | + + + + + + + + | Specimen | + + | | + + + +---------+ + + | Performing | Address | City/State/Zipcode | Phone Number | | Organization | | | | + +---------+ + + | [facility] | | | | | RADIOLOGY | | | | + +---------+ + + documented in this encounter Visit Diagnoses + + | Diagnosis | + + | Scapula fracture Closed fracture of unspecified part of scapula | + + documented in this encounter"
[~2020-07-24 15:29] MED LIST changes: +ARIPIPRAZOLE5 MG PO; +CEFDINIR300 MG PO; +DEXTROAMP-AMPHE10 MG PO; +DIVALPROEX SOD125 MG PO; +NORCO 7.5-3251 EACH PO; +ONDANSETRON ODT8 MG PO
--- OUTSIDE RECORDS SUMMARY | 2020-07-24 15:32 | XMS ---
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 Care History Medical/Surgical 01/17/2020 [facility] - Patient is currently established with [facility]. If patient is seen in the ED during business hours. Please contact CHWs at [facility]. Care Recommendation: If this patient has had 5 or more Emergency Department visits in the last 12 months.\T\nbsp; Patient will require education on the scope and purpose of the ED as an acute care provider not a Primary Care Provider and should not be utilized for chronic conditions.\T\nbsp; These are guidelines and the provider should exercise clinical judgment when providing care. E.D. VISIT COUNT (12 MO.) 1 Jennifer Patel Melissa HernandezFrancisco 2 ОЛЕГ Parker TOTAL 3 NOTE: Visits indicate total known visits. ED/UCC VISIT TRACKING (12 MO.) 07/24/2020 15:30 [place] TYPE: Emergency COMPLAINT: - R SHOULDER PAIN 01/16/2020 09:10 [place] TYPE: Emergency COMPLAINT: - FLANK PAIN DIAGNOSES: - Nicotine dependence, unspecified, uncomplicated - Unspecified abdominal pain - Urinary tract infection, site not specified [facility]2019 [facility] DIAGNOSES: - Emesis - Flank Pain - Lower ABD Pain - Urinary Pain - Nausea - Abdominal Pain - Other specified disorders of bladder INPATIENT VISIT TRACKING (12 MO.) No inpatient visits to display in this time frame [email or web address]
== END 2020-07-24 15:47 | disposition home or self-care (01) ==
LOC: ED 15:29
DX: M25.511 Pain in right shoulder (principal)

== ENCOUNTER 2021-02-05 10:59 | Emergency (ER) | payer OTHER ==
[~2021-02-05] VITALS: Ht 177.8 cm; Wt 97.5 kg
[2021-02-05] MEDS ORDERED: CHANTIX1 EACH PO (11:14)
[2021-02-05] MEDS ORDERED: DOXYCYCLINE HY100 MG PO (15:06)
[2021-02-05] MEDS ORDERED: PRILOSEC OTC20 MG PO (15:06)
--- NOTE | 2021-02-05 15:14 | EKG ---
[facility] [address] [place], [place] [address] Signed Accelerated Junctional rhythm Abnormal ECG No previous ECGs available Confirmed by AMBAR CABAN MD ([id number]) on 02/05/2021 3:14:02 PM Electronically Signed By: AMBAR CABAN MD 02/05/21 1514 PATIENT NAME: GIAN SALEEM Electrocardiogram DATE OF : 83 PHYSICIAN: AMBAR CABAN MD REPORT #: [id number] REPORT IS CONFIDENTIAL AND NOT TO BE RELEASED WITHOUT AUTHORIZATION
== END 2021-02-05 15:20 | disposition home or self-care (01) ==
LOC: ED 10:59
DX: F41.0 Panic disorder [episodic paroxysmal anxiety] (principal); J18.9 Pneumonia, unspecified organism; R07.89 Other chest pain; F17.200 Nicotine dependence, unspecified, uncomplicated; Z88.8 Allergy status to other drugs, medicaments and biological substances; Z88.2 Allergy status to sulfonamides; Z88.1 Allergy status to other antibiotic agents; Z79.899 Other long term (current) drug therapy; Z85.51 Personal history of malignant neoplasm of bladder
CPT/HCPCS: 71045; 80053; 83690; 84484; 85025; 85379; 93005; 93010; 96374; 96375; 99285-25; J1885; J2060

== ENCOUNTER 2023-12-23 06:20 | Emergency (ER) | payer OTHER ==
[~2023-12-23] VITALS: Ht 177.8 cm; Wt 97.5 kg
[~2023-12-23 06:20] MED LIST changes: +CHANTIX1 EACH PO; +DOXYCYCLINE HY100 MG PO; +PRILOSEC OTC20 MG PO
[2023-12-23] MEDS ORDERED: KETOROLAC TROMETHAMINE 30 MG/ML VIAL IV ONE (06:45)
[2023-12-23] MEDS ORDERED: FAMOTIDINE 20 MG/ 2 ML VIAL IV ONE (06:45)
[2023-12-23] MEDS ORDERED: LACTATED RINGER'S 1,000 ML IV ONE (06:45)
[2023-12-23] MEDS ORDERED: ondansetron HCL 4 MG/2 ML VIAL IV ONE (06:45)
[2023-12-23 06:51] LABS: BASOPHILS 0.4 % (0-2); EOSINOPHILS 0.2 % (0-6); HEMATOCRIT 43.7 % (35.0-50.0); HEMOGLOBIN 14.5 g/dL (12.0-18.0); LYMPHOCYTES 7.1 % (24-44); MCH 28.6 (27-36); MCHC 33.3 g/dl (30-36); MONOCYTES 12.1 % (0-12); NEUTROPHILS 80.2 % (39-80); PLATELET COUNT 173 K/uL (140-440); RBC 5.08 M/ul (4.3-5.7); RDW 13.3 (10.5-15.0)
[2023-12-23] MEDS ORDERED: HYDROmorphone HCL 1 MG/ML SYR IV ONE (07:00)
[2023-12-23 07:03] LABS: ALBUMIN 3.9 g/dL (3.4-5.0); ALBUMIN/GLOBULIN RATIO 1.34 (1.1-2.4); ANION GAP 15.6 (7-21); BILIRUBIN, TOTAL 0.5 ng/dL (0.2-1.0); BUN/CREATININE RATIO 7.69 (6.0-28.6); CALCIUM 8.7 mg/dL (8.5-10.1); CREATININE, SERUM 1.17 mg/dL (0.70-1.30); POTASSIUM 3.6 mmol/L (3.5-5.1); PROTEIN, TOTAL 6.8 g/dL (6.4-8.2)
[2023-12-23 07:14] LABS: INFLUENZA B NAA NEGATIVE (NEGATIVE); RESPIRATORY SYNCYTIAL VIR NAA NEGATIVE (NEGATIVE)
[2023-12-23] MEDS ORDERED: TAMIFLU75 MG PO (08:10)
[2023-12-23] MEDS ORDERED: VENTOLIN HFA18 GM INH (08:10)
[2023-12-23 08:18] LABS: BILIRUBIN, URINE NEGATIVE (negative); BLOOD/HGB, URINE NEGATIVE (Negative); KETONE, URINE SMALL (Negative); LEUK ESTERASE, URINE NEGATIVE (negative); NITRITE, URINE NEGATIVE (negative); PH, URINE 6.5 (5-7)
[2023-12-23 08:50] VITALS: BP 117/78
== END 2023-12-23 08:50 | disposition home or self-care (01) ==
LOC: ED 06:20
PROVIDERS: Internal Medicine
DX: J10.1 Influenza due to other identified influenza virus with other respiratory manifestations (principal); F17.200 Nicotine dependence, unspecified, uncomplicated; Z88.1 Allergy status to other antibiotic agents; Z88.2 Allergy status to sulfonamides; Z88.8 Allergy status to other drugs, medicaments and biological substances
CPT/HCPCS: 36415; 74177; 80053; 81003; 83690; 85025; 87502; 96361; 96375; 99284-25; J1885; J2405; J7121; Q9967; U0002